=== PATIENT | female | born 1995 | race Caucasian/White ===

== ENCOUNTER 2017-11-18 09:28 | Inpatient (IN) | payer OTHER ==
[2017-11-18 10:34] VITALS: BMI 23.6
--- NOTE | 2017-11-18 12:12 | HP ---
COWS - Scale Resting Pulse: 0= [place] 80 or Below Sweatin= Chills/Flushing Restless Observation: 1= Difficult to Sit Still Pupil Size: 2= Moderately Dilated Bone or Joint Aches: 1= Mild Discomfort Runny Nose/ Eye Tearin= Nasal Congestion GI Upset > 30mins: 2= Nausea/Diarrhea Tremor Observation: 2= Slight Tremor Visible Yawning Observation: 0= None Anxiety or Irritability: 2=Irritable/Anxious Goose Flesh Skin: 0=Smooth Skin COWS Score: 12 Admission [facility] Chief Complaint: OXYCODONE/ETOH WITHDRAWAL SYMPTOMS. Allergies/Adverse Reactions: Allergies Allergy/AdvReac Type Severity Reaction Status Date / Time No Known Allergies Allergy Verified 11/18/17 10:17 History of Present Illness: PATIENT PRESENTS WITH ETOH/OXYCODONE WITHDRAWAL SYMPTOMS. PATIENT STARTED DRINKING,SMOKING MARIJUANA AND USING NON-PRESCRIBED PERCOCET 5 YEARS AGO. SMOKES MARIJUANA 1/20UNCE DAILY, DRINKS 1 PINT A DAY OF VODKA AND TAKES UP TO 20 10/325MG PERCOCET TABLETS DAILY. DENIES ANY HISTORY OF SEIZURES FROM ETOH USE /WITHDRAWAL. LAST DRINK LAST NIGHT AND PATIENT REPORTS TAKING PERCOCET, 5 TABS THIS MORNING. REPORTS HISTORY OF DEPRESSION AND ANXIETY. DENIES SI/HI AND SUICIDE ATTEMPTS. LAST DETOX WAS IN 04/2016 AT [facility]. - Ebola screening Have you traveled outside of the country in the last 21 days: No (N) Have you had contact with anyone from an Ebola affected area: No Have you been sick,other than usual withdrawal symptoms: No Do you have a fever: No - Review of Systems Constitutional: Night Sweats, Changes in sleep, Unexplained wgt Loss EENT: reports: Nose Congestion Respiratory: reports: No Symptoms reported Cardiac: reports: No Symptoms Reported GI: reports: Diarrhea, Nausea, Poor Fluid Intake, Abdominal cramping : reports: No Symptoms Reported Musculoskeletal: reports: Back Pain, Muscle Pain Integumentary: reports: Sweating Neuro: reports: Tremors Endocrine: reports: Unexplained Weight Loss Psychiatric: reports: Anxious, Depressed Patient History - Patient Medical History Hx Anemia: Yes (NOT CURRENTLY ON MED) Hx Asthma: No Hx Chronic Obstructive Pulmonary Disease (COPD): No Hx Cancer: No Hx Cardiac Disorders: No Hx Congestive Heart Failure: No Hx Hypertension: No Hx Hypercholesterolemia: No Hx Pacemaker: No HX Cerebrovascular Accident: No Hx Seizures: No Hx Dementia: No Hx Diabetes: No Hx Gastrointestinal Disorders: No Hx Liver Disease: No Hx Genitourinary Disorders: No Hx Sexually Transmitted Disorders: No Hx Renal Disease (ESRD): No Hx Thyroid Disease: No Hx Human Immunodeficiency Virus (HIV): No (NEGATIVE HX, LAST TEST ONE MONTH AGO AND NEGATIVE) Hx Hepatitis C: No Hx Depression: Yes Hx Suicide Attempt: No Hx Bipolar Disorder: No Hx Schizophrenia: No - Patient Surgical History Past Surgical History: Yes Hx Neurologic Surgery: No Hx Cataract Extraction: No Hx Cardiac Surgery: No Hx Lung Surgery: No Hx Breast Surgery: Yes (bilateral augmentation in 02/2016) Hx Breast Biopsy: No Hx Abdominal Surgery: No (liposuction in 02/2016) Hx Appendectomy: No Hx Cholecystectomy: No Hx Genitourinary Surgery: No Hx Section: No Hx Orthopedic Surgery: No Other Surgical History: LIPOSUCTION IN 02/16. Anesthesia Reaction: No - PPD History Previous Implant?: Yes Documented Results: Negative w/proof Implanted On Prior [facility] Admission?: Yes Date: 04/23/16 Results: 0 mm PPD to be Administered?: Yes - Reproductive History Last Menstrual Period: 11/04/17 Patient : No - Smoking Cessation Smoking history: Current every day smoker Have you smoked in the past 12 months: Yes Aproximately how many cigarettes per day: 20 If you are a former smoker, when did you quit?: 2013 Hx Chewing Tobacco Use: No Initiated information on smoking cessation: Yes 'Breaking Loose' booklet given: 11/18/17 - Substance & Tx. History Hx Alcohol Use: Yes Hx Substance Use: Yes Substance Use Type: Alcohol, Marijuana, Opiates - Substances Abused Percocet Route: Oral Frequency: Daily Amount used: 15 tabs. (10 mg.) Age of first use: 15 Date of Last Use: 11/18/17 Alcohol-cognac Route: Oral Frequency: 3-6 times per week Amount used: 1 pt. Age of first use: 16 Date of Last Use: 11/17/17 Marijuana Route: Smoking Frequency: Daily Amount used: $100 Age of first use: 12 Date of Last Use: 11/18/17 Family Disease History - Family Disease History Family Disease History: Other: Sister (opiate dependence) Admission Physical Exam [facility]HS - Vital Signs Vital Signs: Vital Signs - 24 hr 11/18/17 10:29 Temperature 98.2 F Pulse Rate 64 Respiratory 18 Rate Blood Pressure 101/63 - Physical General Appearance: Yes: No Apparent Distress, Nourished, Tremorous, Sweating, Anxious HEENTM: Yes: EOMI, Hearing grossly Normal, Normocephalic, Normal Voice, GILA, Pharynx Normal, Nasal Congestion Respiratory: Yes: Chest Non-Tender, Lungs Clear, Normal Breath Sounds, No Respiratory Distress, No Accessory Muscle Use Neck: Yes: No masses,lesions,Nodules, Supple, Trachea in good position Breast: Yes: Breast Exam Deferred Cardiology: Yes: Regular Rhythm, Regular Rate, S1, S2 Abdominal: Yes: Normal Bowel Sounds, Non Tender, Flat, Soft Genitourinary: Yes: Within Normal Limits Back: Yes: Normal Inspection, Muscle Spasm Musculoskeletal: Yes: full range of Motion, Gait Steady, Back pain Extremities: Yes: Normal Inspection, Normal Range of Motion, Non-Tender 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: 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 NML intact, Fully Oriented, Alert, Motor Strength 5/5, Depressed Affect Integumentary: Yes: Normal Color, Warm, Moist Lymphatic: Yes: Within Normal Limits - Diagnostic (1) Depressed affect Current Visit: Yes Status: Acute (2) Anxiety Current Visit: Yes Status: Acute (3) Alcohol dependence with uncomplicated withdrawal Current Visit: No Status: Acute (4) Cannabis dependence Current Visit: Yes Status: Chronic (5) Opioid dependence with withdrawal Current Visit: Yes Status: Acute Cleared for Admission [facility] - Detox or Rehab [facility] Level of Care: Medically Managed Detox Regimen/Protocol: Methadone/Librium [facility] Breath Alcohol Content Breath Alcohol Content: 0 Urine Pregancy Test - Result Urine Test Results: Negative- NO Line Present Urine Drug Screen - Results Drug Screen Negative: No Urine Drug Screen Results: THC-Marijuana, OXY-Oxycodone
[2017-11-18] MEDS ORDERED: IBUPROFEN 400 MG TABLET (FP) PO PRN (12:23)
[2017-11-18] MEDS ORDERED: NICOTINE POLACRILEX 2 MG GUM BUC PRN (12:23)
[2017-11-18] MEDS ORDERED: MAGNESIUM HYDROX 2400MG/30ML ORAL SUSPENSION 30 ML CUP PO PRN (12:23)
[2017-11-18] MEDS ORDERED: MENTHOL/PHENOL 1 EACH UD MM PRN (12:23)
[2017-11-18] MEDS ORDERED: guaiFENesin/D-METHORPHAN HB 10 ML UNIT-DOSE CUPS PO PRN (12:23)
[2017-11-18] MEDS ORDERED: P-EPHED 60MG/TRIPROLIDI 2.5MG TABLET PO PRN (12:23)
[2017-11-18] MEDS ORDERED: MAGNESIUM CITRATE 300 ML BOTTLE PO PRN (12:23)
[2017-11-18] MEDS ORDERED: LOPERAMIDE HCL 2 MG CAPSULE PO PRN (12:23)
[2017-11-18] MEDS ORDERED: MAG HYDROX/AL HYDROX/SIMETH 30 ML UNIT-DOSE CUP PO PRN (12:23)
[2017-11-18] MEDS ORDERED: ACETAMINOPHEN 325 MG TABLET (FP) PO PRN (12:23)
[2017-11-18] MEDS ORDERED: chlordiazePOXIDE HCL 25 MG CAPSULE PO PRN (12:27)
[2017-11-18] MEDS ORDERED: METHADONE HCL 10 MG TABLET (FOR DETOX USE ONLY) PO ONE ×3 (12:50→23:00)
[2017-11-18] MEDS ORDERED: chlordiazePOXIDE HCL 25 MG CAPSULE PO ONE (12:50)
[2017-11-18] MEDS ORDERED: METHADONE HCL 10 MG TABLET (FOR DETOX USE ONLY) ONE (15:30)
[2017-11-18] MEDS ORDERED: ONDANSETRON *ODT* 4 MG TABLET SL ONE (16:45)
[2017-11-18] MEDS ORDERED: ASPIRIN 81 MG CHEWABLE TABLETS PO ONE (16:45)
[2017-11-18] MEDS: chlordiazePOXIDE HCL 25 MG CAPSULE PO SCH ×2 (17:27→22:23)
[2017-11-18 20:16] LABS: URINE APPEARANCE SLCLOUDY; URINE BILIRUBIN NEGATIVE (<2.0 mg/dL); URINE COLOR LTYELLOW; URINE GLUCOSE (UA) NEGATIVE (NEGATIVE); URINE KETONE NEGATIVE (NEGATIVE); URINE LEUK ESTERASE NEGATIVE (NEGATIVE); URINE NITRITE NEGATIVE (NEGATIVE); URINE PROTEIN NEGATIVE (NEGATIVE); URINE UROBILINOGEN NEGATIVE mg/dL (0.2-1.0)
[2017-11-18] MEDS: THIAMINE HCL 100 MG TABLET (FP) PO SCH (22:23)
[2017-11-18] MEDS: MELATONIN 5 MG TABLETS PO PRN (22:24)
[2017-11-19] MEDS: chlordiazePOXIDE HCL 25 MG CAPSULE PO SCH ×4 (05:58→22:34)
[2017-11-19] MEDS ORDERED: METHADONE HCL 10 MG TABLET (FOR DETOX USE ONLY) PO SCH (10:00)
[2017-11-19] MEDS: PRENATAL VITAMINS W/ FOLIC ACID TABLET (FP) PO SCH (10:25)
[2017-11-19] MEDS: NICOTINE 21 MG/24 HOURS TOPICAL PATCH TD SCH (10:27)
[2017-11-19 10:43] LABS: HEMATOCRIT 39.5 % (32.4-45.2); HEMOGLOBIN 13.6 GM/dL (10.7-15.3); MCH 35.2 pg (25.7-33.7); MCHC 34.5 g/dl (32.0-36.0); MEAN CELL VOLUME 102.1 fl (80-96); MEAN PLT VOLUME 8.7 fl (7.5-11.1); PLATELET COUNT 236 K/MM3 (134-434); RBC 3.87 M/mm3 (3.60-5.2); RDW 13.3 % (11.6-15.6); WHITE BLOOD COUNT 6.1 K/mm3 (4.0-10.0)
[2017-11-19 10:47] LABS: ALBUMIN 3.9 g/dl (3.4-5.0); ALK PHOS 48 U/L (45-117); ANION GAP 2 (8-16); BILIRUBIN,TOTAL 0.2 mg/dL (0.2-1.0); BLOOD UREA NITROGEN 12 mg/dL (7-18); CALCIUM 8.6 mg/dL (8.5-10.1); CHLORIDE 106 mmol/L (98-107); CO2 32 mmol/L (21-32); CREATININE 0.8 mg/dL (0.55-1.02); GLUCOSE,RANDOM 87 mg/dL (74-106); POTASSIUM 4.2 mmol/L (3.5-5.1); SGOT/AST 10 U/L (15-37); SGPT/ALT 12 U/L (12-78); SODIUM 140 mmol/L (136-145); TOT PROT 6.6 g/dl (6.4-8.2)
--- NOTE | 2017-11-19 12:03 | PN ---
[facility] CIWA - CIWA Score Nausea/Vomitin Muscle Tremors: 3 Anxiety: 3 Agitation: 3 Paroxysmal Sweats: 2 Orientation: 0-Oriented Tacttile Disturbances: 0-None Auditory Disturbances: 0-None Visual Disturbances: 0-None Headache: 0-None Present CIWA-Ar Total Score: 14 [facility] COWS - Scale Resting Pulse: 0= SD 80 or Below Sweatin=Flushed/Facial Moisture Restless Observation: 1= Difficult to Sit Still Pupil Size: 0= Normal to Room Light Bone or Joint Aches: 0= None Runny Nose/ Eye Tearin= Nasal Congestion GI Upset > 30mins: 0= None Tremor Observation of Outstretched Hands: 1= Tremor [place], Not Seen Yawning Observation: 0= None Anxiety or Irritability: 2=Irritable/Anxious Goose Flesh Skin: 0=Smooth Skin COWS Score: 7 [facility] Progress Note (SOAP) Subjective: Restless Sleep disturbance sweats Objective: 11/19/17 12:02 A & O x 3 No acute distress Vital Signs Temperature 97.9 F 11/19/17 09:29 Pulse Rate 63 11/19/17 09:29 Respiratory Rate 16 11/19/17 09:29 Blood Pressure 96/50 11/19/17 09:29 O2 Sat by Pulse Oximetry (%) Laboratory Last Values WBC 6.1 K/mm3 (4.0-10.0) D 11/19/17 06:00 RBC 3.87 M/mm3 (3.60-5.2) 11/19/17 06:00 Hgb 13.6 GM/dL (10.7-15.3) D 11/19/17 06:00 Hct 39.5 % (32.4-45.2) 11/19/17 06:00 MCV 102.1 fl (80-96) H 11/19/17 06:00 MCH 35.2 pg (25.7-33.7) H D 11/19/17 06:00 MCHC 34.5 g/dl (32.0-36.0) 11/19/17 06:00 RDW 13.3 % (11.6-15.6) 11/19/17 06:00 Plt Count 236 K/MM3 (134-434) D 11/19/17 06:00 MPV 8.7 fl (7.5-11.1) D 11/19/17 06:00 Sodium 140 mmol/L (136-145) 11/19/17 06:00 Potassium 4.2 mmol/L (3.5-5.1) 11/19/17 06:00 Chloride 106 mmol/L (98-107) 11/19/17 06:00 Carbon Dioxide 32 mmol/L (21-32) 11/19/17 06:00 Anion Gap 2 (8-16) L 11/19/17 06:00 BUN 12 mg/dL (7-18) 11/19/17 06:00 Creatinine 0.8 mg/dL (0.55-1.02) 11/19/17 06:00 Creat Clearance w eGFR > 60 (>60) 11/19/17 06:00 Random Glucose 87 mg/dL (74-106) 11/19/17 06:00 Calcium 8.6 mg/dL (8.5-10.1) 11/19/17 06:00 Total Bilirubin 0.2 mg/dL (0.2-1.0) 11/19/17 06:00 AST 10 U/L (15-37) L 11/19/17 06:00 ALT 12 U/L (12-78) 11/19/17 06:00 Alkaline Phosphatase 48 U/L (45-117) 11/19/17 06:00 Total Protein 6.6 g/dl (6.4-8.2) 11/19/17 06:00 Albumin 3.9 g/dl (3.4-5.0) 11/19/17 06:00 Urine Color Ltyellow 11/18/17 18:00 Urine Appearance Slcloudy 11/18/17 18:00 Urine pH 6.0 (5.0-8.0) 11/18/17 18:00 Ur Specific [place] 1.010 (1.001-1.035) 11/18/17 18:00 Urine Protein Negative (NEGATIVE) 11/18/17 18:00 Urine Glucose (UA) Negative (NEGATIVE) 11/18/17 18:00 Urine Ketones Negative (NEGATIVE) 11/18/17 18:00 Urine Blood Negative (NEGATIVE) 11/18/17 18:00 Urine Nitrite Negative (NEGATIVE) 11/18/17 18:00 Urine Bilirubin Negative (<2.0 mg/dL) 11/18/17 18:00 Urine Urobilinogen Negative mg/dL (0.2-1.0) 11/18/17 18:00 Ur Leukocyte Esterase Negative (NEGATIVE) 11/18/17 18:00 RPR Titer Nonreactive (NONREACTIVE) 11/19/17 06:00 labs noted, HIGH UR SPECIFIC GRAVITY 11/19/17 12:08 Assessment: 11/19/17 12:05 withdrawal sx Dehydration Plan: continue detox increase hydration
--- NOTE | 2017-11-19 13:55 | CONSULT ---
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 Substance Abuse History: Confirmed by patient in this interview.Smoking history : Current every day smoker. Have you smoked in the past 12 months: Yes. Aproximately how many cigarettes per day: 20. If you are a former smoker, when did you quit?: 2013. Hx Chewing Tobacco Use: No. Initiated information on smoking cessation: Yes. 'Breaking Loose' booklet given: 11/18/17. - Substance & Tx. History. Hx Alcohol Use: Yes. Hx Substance Use: Yes. Substance Use Type : Alcohol, Marijuana, Opiates. - Substances Abused. Percocet. Route: Oral. Frequency: Daily. Amount used: 15 tabs. (10 mg.). Age of first use: 15. Date of Last Use: 11/18/17. Alcohol-cognac. Route: Oral. Frequency: 3 -6 times per week. Amount used: 1 pt. Age of first use: 16. Date of Last Use : 11/17/17. Marijuana. Route: Smoking. Frequency: Daily. Amount used: $ 100. Age of first use: 12. Date of Last Use: 11/18/17 Medical History: Remarkable for anemia and a history of breast augmentation + liposuction (2016). Psychiatric History: No reported history of psychiatric hospitalizations.Patient endorses the diagnoses of MDD and Anxiety Disorder.Sees a psychiatrist at a clinic located in the [place].Name of facility and prescribed medications : not recalled by the patient.Ms Gatica denies history of suicide attempts. Physical/Sexual Abuse/Trauma History: Patient denies. Additional Comment: Urine Drug Screen Results: THC-Marijuana, OXY- Oxycodone.Noted. Mental Status Exam - Mental Status Exam Alert and Oriented to: Time, Place, Person Cognitive Function: Good Patient Appearance: Well Groomed (small frame,petite) Mood: Nervous, Anxious Affect: Mood Congruent Patient Behavior: Appropriate, Cooperative Speech Pattern: Clear (fluent in honduran) Voice Loudness: Normal Thought Process: Intact, Goal Oriented Thought Disorder: Not Present Hallucinations: Denies Suicidal Ideation: Denies Homicidal Ideation: Denies Insight/Judgement: Poor Sleep: Poorly, Difficulty falling asleep Appetite: Good Muscle strength/Tone: Normal Gait/Station: Normal Psychiatric Findings - Problem List ([place] 1, 2,3) (1) Alcohol dependence with uncomplicated withdrawal Current Visit: Yes Status: Acute (2) Opioid dependence with withdrawal Current Visit: Yes Status: Acute (3) Cannabis dependence Current Visit: Yes Status: Acute (4) Nicotine dependence Current Visit: Yes Status: Acute (5) Drug-induced mood disorder Current Visit: Yes Status: Chronic (6) Insomnia Current Visit: Yes Status: Acute - Initial Treatment Plan Initial Treatment Plan: Psychoeducation.Records revisited,Sleep hygiene.Detoxification.Ambien 10 mg po hs prn.Patient is made aware of the potential for parasomnias.She agrees with this careplan.Observation.NO known medications on reconciliation list.Review of pharmacy claims : not informative ( no activity).
[2017-11-19] MEDS: hydrOXYzine PAMOATE 50 MG CAPSULE (FP) PO PRN ×2 (14:58→19:53)
[2017-11-19] MEDS: THIAMINE HCL 100 MG TABLET (FP) PO SCH (22:34)
[2017-11-19] MEDS: ZOLPIDEM TARTRATE 10 MG TABLET (PARK CARE ONLY) PO PRN (22:35)
[2017-11-19] MEDS: MELATONIN 5 MG TABLETS PO PRN (22:36)
[2017-11-20] MEDS: chlordiazePOXIDE HCL 25 MG CAPSULE PO SCH ×2 (06:11→11:16)
[2017-11-20] MEDS: METHADONE HCL 5 MG TABLET (FOR DETOX USE ONLY) PO SCH (11:15)
[2017-11-20] MEDS: NICOTINE 21 MG/24 HOURS TOPICAL PATCH TD SCH (11:16)
[2017-11-20] MEDS: PRENATAL VITAMINS W/ FOLIC ACID TABLET (FP) PO SCH (11:16)
--- NOTE | 2017-11-20 12:30 | PN ---
[facility] CIWA - CIWA Score Nausea/Vomitin-Mild Nausea/No Vomiting Muscle Tremors: 4-Moderate,w/Arms Extend Anxiety: 4-Mod. Anxious/Guarded Agitation: 4-Moderately Restless Paroxysmal Sweats: 3 Orientation: 0-Oriented Tacttile Disturbances: 0-None Auditory Disturbances: 0-None Visual Disturbances: 0-None Headache: 0-None Present CIWA-Ar Total Score: 16 [facility] COWS - Scale Resting Pulse: 0= [place] 80 or Below Sweatin=Flushed/Facial Moisture Restless Observation: 1= Difficult to Sit Still Pupil Size: 0= Normal to Room Light Bone or Joint Aches: 2= Severe Diffuse Aches Runny Nose/ Eye Tearin= Runny Nose/Eyes GI Upset > 30mins: 1= Stomach Cramp Tremor Observation of Outstretched Hands: 2= Slight Tremor Visible Yawning Observation: 2= >3x During Session Anxiety or Irritability: 2=Irritable/Anxious Goose Flesh Skin: 3=Piloerection COWS Score: 17 [facility] Progress Note (SOAP) Subjective: body aches sweats shakes interrupted sleep agitation irritable Objective: 11/20/17 12:29 Vital Signs Temperature 97.9 F 11/20/17 10:27 Pulse Rate 83 11/20/17 11:13 Respiratory Rate 18 11/20/17 11:13 Blood Pressure 91/62 11/20/17 11:13 O2 Sat by Pulse Oximetry (%) Laboratory Tests 11/18/17 11/19/17 11/19/17 18:00 06:00 06:00 WBC 6.1 D RBC 3.87 Hgb 13.6 D Hct 39.5 MCV 102.1 H MCH 35.2 H D MCHC 34.5 RDW 13.3 Plt Count 236 D MPV 8.7 D Sodium 140 Potassium 4.2 Chloride 106 Carbon Dioxide 32 Anion Gap 2 L BUN 12 Creatinine 0.8 Creat Clearance w eGFR > 60 Random Glucose 87 Calcium 8.6 Total Bilirubin 0.2 AST 10 L ALT 12 Alkaline Phosphatase 48 Total Protein 6.6 Albumin 3.9 Urine Color Ltyellow Urine Appearance Slcloudy Urine pH 6.0 Ur Specific [place] 1.010 Urine Protein Negative Urine Glucose (UA) Negative Urine Ketones Negative Urine Blood Negative Urine Nitrite Negative Urine Bilirubin Negative Urine Urobilinogen Negative Ur Leukocyte Esterase Negative RPR Titer 11/19/17 06:00 WBC RBC Hgb Hct MCV MCH MCHC RDW Plt Count MPV Sodium Potassium Chloride Carbon Dioxide Anion Gap BUN Creatinine Creat Clearance w eGFR Random Glucose Calcium Total Bilirubin AST ALT Alkaline Phosphatase Total Protein Albumin Urine Color Urine Appearance Urine pH Ur Specific [place] Urine Protein Urine Glucose (UA) Urine Ketones Urine Blood Urine Nitrite Urine Bilirubin Urine Urobilinogen Ur Leukocyte Esterase RPR Titer Nonreactive aaox3 ambulating no acute distress Assessment: 11/20/17 12:29 withdrawal sx Plan: continue detox increase fluids ensure bid water pitcher
[2017-11-20] MEDS: hydrOXYzine PAMOATE 50 MG CAPSULE (FP) PO PRN ×2 (13:22→17:25)
[2017-11-20] MEDS: CYCLOBENZAPRINE HCL 10 MG TABLET (FP) PO PRN ×2 (13:22→22:41)
[2017-11-20] MEDS: chlordiazePOXIDE 5 MG CAPSULE PO SCH ×2 (17:24→22:39)
[2017-11-20] MEDS: ZOLPIDEM TARTRATE 10 MG TABLET (PARK CARE ONLY) PO PRN (22:40)
[2017-11-20] MEDS: THIAMINE HCL 100 MG TABLET (FP) PO SCH (22:40)
[2017-11-21] MEDS: hydrOXYzine PAMOATE 50 MG CAPSULE (FP) PO PRN ×2 (01:12→12:26)
[2017-11-21] MEDS: chlordiazePOXIDE 5 MG CAPSULE PO SCH ×2 (05:22→10:25)
[2017-11-21] MEDS: CYCLOBENZAPRINE HCL 10 MG TABLET (FP) PO PRN ×3 (05:27→22:42)
[2017-11-21] MEDS: PRENATAL VITAMINS W/ FOLIC ACID TABLET (FP) PO SCH (10:24)
[2017-11-21] MEDS: METHADONE HCL 5 MG TABLET (FOR DETOX USE ONLY) PO SCH (10:24)
[2017-11-21] MEDS: NICOTINE 21 MG/24 HOURS TOPICAL PATCH TD SCH (10:25)
--- NOTE | 2017-11-21 10:39 | PN ---
S Progress Note (SOAP) Subjective: ALERT,IRRITABLE,ANXIOUS,INTERRUPTED SLEEP,TREMOR,PAIN IN THE BODY Objective: 11/21/17 10:37 Vital Signs Temperature 97.3 F L 11/21/17 06:20 Pulse Rate 73 11/21/17 06:20 Respiratory Rate 18 11/21/17 06:20 Blood Pressure 92/67 11/21/17 06:20 O2 Sat by Pulse Oximetry (%) Laboratory Last Values WBC 6.1 K/mm3 (4.0-10.0) D 11/19/17 06:00 RBC 3.87 M/mm3 (3.60-5.2) 11/19/17 06:00 Hgb 13.6 GM/dL (10.7-15.3) D 11/19/17 06:00 Hct 39.5 % (32.4-45.2) 11/19/17 06:00 MCV 102.1 fl (80-96) H 11/19/17 06:00 MCH 35.2 pg (25.7-33.7) H D 11/19/17 06:00 MCHC 34.5 g/dl (32.0-36.0) 11/19/17 06:00 RDW 13.3 % (11.6-15.6) 11/19/17 06:00 Plt Count 236 K/MM3 (134-434) D 11/19/17 06:00 MPV 8.7 fl (7.5-11.1) D 11/19/17 06:00 Sodium 140 mmol/L (136-145) 11/19/17 06:00 Potassium 4.2 mmol/L (3.5-5.1) 11/19/17 06:00 Chloride 106 mmol/L (98-107) 11/19/17 06:00 Carbon Dioxide 32 mmol/L (21-32) 11/19/17 06:00 Anion Gap 2 (8-16) L 11/19/17 06:00 BUN 12 mg/dL (7-18) 11/19/17 06:00 Creatinine 0.8 mg/dL (0.55-1.02) 11/19/17 06:00 Creat Clearance w eGFR > 60 (>60) 11/19/17 06:00 Random Glucose 87 mg/dL (74-106) 11/19/17 06:00 Calcium 8.6 mg/dL (8.5-10.1) 11/19/17 06:00 Total Bilirubin 0.2 mg/dL (0.2-1.0) 11/19/17 06:00 AST 10 U/L (15-37) L 11/19/17 06:00 ALT 12 U/L (12-78) 11/19/17 06:00 Alkaline Phosphatase 48 U/L (45-117) 11/19/17 06:00 Total Protein 6.6 g/dl (6.4-8.2) 11/19/17 06:00 Albumin 3.9 g/dl (3.4-5.0) 11/19/17 06:00 Urine Color Ltyellow 11/18/17 18:00 Urine Appearance Slcloudy 11/18/17 18:00 Urine pH 6.0 (5.0-8.0) 11/18/17 18:00 Ur Specific [place] 1.010 (1.001-1.035) 11/18/17 18:00 Urine Protein Negative (NEGATIVE) 11/18/17 18:00 Urine Glucose (UA) Negative (NEGATIVE) 11/18/17 18:00 Urine Ketones Negative (NEGATIVE) 11/18/17 18:00 Urine Blood Negative (NEGATIVE) 11/18/17 18:00 Urine Nitrite Negative (NEGATIVE) 11/18/17 18:00 Urine Bilirubin Negative (<2.0 mg/dL) 11/18/17 18:00 Urine Urobilinogen Negative mg/dL (0.2-1.0) 11/18/17 18:00 Ur Leukocyte Esterase Negative (NEGATIVE) 11/18/17 18:00 RPR Titer Nonreactive (NONREACTIVE) 11/19/17 06:00 Assessment: 11/21/17 10:38 WITHDRAWAL SYMPTOM Plan: CONTINUE DETOX,PSYCHIATRIC REEVALUATION FOR MED FOR INSOMNIA
--- NOTE | 2017-11-21 14:38 | PN ---
Psychiatric Progress Note Vital Signs: Vital Signs Period Temp Pulse Resp BP Sys/Perez Pulse Ox Last 24 Hr 96.9 F-98.4 F 73-101 16-20 92-103/56-69 Date of Session: 11/21/17 Chief Complaint:: Insomnia, muscle spasms HPI: Patient reports muscle stiffness, reports insomnia, asking for medications aid. Patient currently on Ambien 10mg po qhs for insomnia Current Medications: Active Medications Generic Name Dose Route Start Last Admin Trade Name Freq PRN Reason Stop Dose Admin Acetaminophen 650 mg 11/18/17 12:23 11/19/17 10:28 Tylenol - PO 650 mg Q4H PRN Administration FEVER Al Hydroxide/Mg Hydroxide 30 ml 11/18/17 12:23 Mylanta Oral Suspension - PO Q6H PRN DYSPEPSIA Chlordiazepoxide HCl 10 mg 11/21/17 17:00 Librium - PO 11/22/17 11:01 [id number] SABRINA Cyclobenzaprine HCl 10 mg 11/20/17 10:38 11/21/17 13:40 Flexeril - PO 10 mg TID PRN Administration MUSCLE SPASMS Eucalyptus/Menthol/Phenol/Sorbitol 1 each 11/18/17 12:23 Cepastat Lozenge - MM Q4H PRN SORE THROAT Guaifenesin 10 ml 11/18/17 12:23 Robitussin Dm - PO Q6H PRN COUGH Hydroxyzine Pamoate 50 mg 11/18/17 12:23 11/21/17 12:26 Vistaril - PO 50 mg Q4H PRN Administration AGITATION Loperamide HCl 4 mg 11/18/17 12:23 Imodium - PO Q6H PRN DIARRHEA Magnesium Citrate 300 ml 11/18/17 12:23 Citroma - PO Q48H PRN CONSTIPATION Magnesium Hydroxide 30 ml 11/18/17 12:23 Milk Of Magnesia - PO DAILY PRN CONSTIPATION Melatonin 5 mg 11/18/17 22:00 11/19/17 22:36 Melatonin PO 5 mg HS PRN Administration INSOMNIA Methadone HCl 5 mg 11/23/17 06:00 Dolophine - PO 11/23/17 06:01 DAILY@0600 SABRINA Methadone HCl 10 mg 11/22/17 10:00 Dolophine - PO 11/22/17 10:01 DAILY SABRINA Nicotine 21 mg 11/19/17 10:00 11/21/17 10:25 Nicoderm Patch - TD 21 mg DAILY SABRINA Administration Nicotine Polacrilex 2 mg 11/18/17 12:23 Nicorette Gum - BUC Q2H PRN NICOTINE REPLACEMENT RX Multivit/Folic Acid/Iron 1 tab 11/19/17 10:00 11/21/17 10:24 Vitamins (Sjr) - PO 1 tab DAILY SABRINA Administration Pseudoephedrine/Triprolidine 1 combo 11/18/17 12:23 Actifed - PO TID PRN NASAL CONGESTION Thiamine HCl 100 mg 11/18/17 22:00 11/20/17 22:40 Vitamin B1 - PO 100 mg HS SABRINA Administration Zolpidem Tartrate 10 mg 11/19/17 22:00 11/20/17 22:40 Ambien - PO 10 mg HS PRN Administration INSOMNIA Provider note:: Gabapentin 300mg po tid added to treatment plan Mental Status Exam - Mental Status Exam Alert and Oriented to: Place, Person Cognitive Function: Fair Patient Appearance: Well Groomed Mood: Apprehensive Affect: Mood Congruent Patient Behavior: Cooperative Speech Pattern: Appropriate Voice Loudness: Normal Thought Process: Goal Oriented Thought Disorder: Being Controlled Hallucinations: Denies Suicidal Ideation: Denies Homicidal Ideation: Denies Insight/Judgement: Fair Sleep: Difficulty falling asleep Appetite: Fair Muscle strength/Tone: Mild Hypertonicity Gait/Station: Normal Additional Comments: Gabapentin 300mg po tid Psychiatric Treatment Plan - Problem List (1) Alcohol dependence with uncomplicated withdrawal Current Visit: Yes (2) Anxiety and depression Current Visit: Yes (3) Cannabis dependence Current Visit: Yes (4) Nicotine dependence Current Visit: Yes (5) Opioid dependence with withdrawal Current Visit: Yes (6) Drug-induced mood disorder Current Visit: Yes (7) Substance-induced sleep disorder Current Visit: No Initial treatment plan: Gabapentin 300mg po tid
[2017-11-21] MEDS: GABAPENTIN 300 MG CAPSULE (FP) PO SCH ×2 (16:03→22:40)
[2017-11-21] MEDS: chlordiazePOXIDE HCL 10 MG CAPSULE PO SCH ×2 (18:03→22:40)
[2017-11-21] MEDS: THIAMINE HCL 100 MG TABLET (FP) PO SCH (22:40)
[2017-11-21] MEDS: ZOLPIDEM TARTRATE 10 MG TABLET (PARK CARE ONLY) PO PRN (22:42)
--- NOTE | 2017-11-22 00:09 | EKG ---
Test Reason : Blood Pressure : / mmHG Vent. Rate : 065 BPM Atrial Rate : 065 BPM P-R Int : 142 ms QRS Dur : 090 ms QT Int : 420 ms P-R-T Axes : 052 005 009 degrees QTc Int : 436 ms NORMAL SINUS RHYTHM WITH SINUS ARRHYTHMIA NONSPECIFIC T WAVE ABNORMALITY ABNORMAL ECG WHEN COMPARED WITH ECG OF 18-NOV-2017 15:07, T WAVE VARIATION Confirmed by PRANAY DAVIDSON MD ([id number]) on 11/22/2017 12:09:19 AM Referred By: Confirmed By:PRANAY DAVIDSON MD
--- NOTE | 2017-11-22 00:53 | EKG ---
Test Reason : Blood Pressure : / mmHG Vent. Rate : 056 BPM Atrial Rate : 056 BPM P-R Int : 140 ms QRS Dur : 090 ms QT Int : 438 ms P-R-T Axes : 042 009 007 degrees QTc Int : 422 ms SINUS BRADYCARDIA WITH SINUS ARRHYTHMIA OTHERWISE NORMAL ECG NO PREVIOUS ECGS AVAILABLE Confirmed by PRANAY DAVIDSON MD ([id number]) on 11/22/2017 12:53:37 AM Referred By: Confirmed By:PRANAY DAVIDSON MD
[2017-11-22] MEDS: GABAPENTIN 300 MG CAPSULE (FP) PO SCH ×3 (05:29→22:21)
[2017-11-22] MEDS: chlordiazePOXIDE HCL 10 MG CAPSULE PO SCH ×2 (05:30→11:05)
[2017-11-22] MEDS ORDERED: METHADONE HCL 10 MG TABLET (FOR DETOX USE ONLY) PO SCH (10:00)
--- NOTE | 2017-11-22 10:09 | PN ---
S Progress Note (SOAP) Subjective: ALERT,IRRITABLE,ANXIOUS,INTERRUPTED SLEEP, Objective: 11/22/17 10:07 Vital Signs Temperature 95.4 F L 11/22/17 09:10 Pulse Rate 108 H 11/22/17 09:10 Respiratory Rate 18 11/22/17 09:10 Blood Pressure 96/42 11/22/17 09:10 O2 Sat by Pulse Oximetry (%) Assessment: 11/22/17 10:08 WITHDRAWAL SYMPTOM Plan: CONTINUE DETOX
[2017-11-22] MEDS: PRENATAL VITAMINS W/ FOLIC ACID TABLET (FP) PO SCH (11:05)
[2017-11-22] MEDS: NICOTINE 21 MG/24 HOURS TOPICAL PATCH TD SCH (11:06)
[2017-11-22] MEDS: hydrOXYzine PAMOATE 50 MG CAPSULE (FP) PO PRN ×3 (13:32→23:43)
[2017-11-22] MEDS: CYCLOBENZAPRINE HCL 10 MG TABLET (FP) PO PRN ×2 (13:34→22:24)
[2017-11-22] MEDS: THIAMINE HCL 100 MG TABLET (FP) PO SCH (22:21)
[2017-11-22] MEDS: MELATONIN 5 MG TABLETS PO PRN (22:23)
[2017-11-23] MEDS ORDERED: METHADONE HCL 5 MG TABLET (FOR DETOX USE ONLY) PO SCH (06:00)
[2017-11-23 06:47] VITALS: TEMP 97.7
[2017-11-23] MEDS: GABAPENTIN 300 MG CAPSULE (FP) PO SCH (06:47)
[2017-11-23] MEDS: hydrOXYzine PAMOATE 50 MG CAPSULE (FP) PO PRN (08:53)
--- NOTE | 2017-11-23 09:01 | PN ---
S Progress Note (SOAP) Subjective: ALERT,NO COMPLAINT Objective: 11/23/17 08:58 Vital Signs Temperature 97.7 F 11/23/17 06:47 Pulse Rate 65 11/23/17 06:47 Respiratory Rate 16 11/23/17 06:47 Blood Pressure 85/48 11/23/17 06:47 O2 Sat by Pulse Oximetry (%) Assessment: 11/23/17 08:58 DETOX COMPLETED,NO WITHDRAWAL SYMPTOM Plan: DISCHARGE TODAY,FOLLOW UP WITH AFTER CARE PROGRAM ARRANGEMENT
--- NOTE | 2017-11-23 09:08 | DS ---
[facility] Detox Discharge Summary Admission Date: 11/18/17 Discharge Date: 11/23/17 - History Present History: Alcohol Dependence, Cocaine Dependence, Opioid Dependence Additional Comments: FOLLOW UP WITH REVELATION ARRANGEMENT Pertinent Past History: ASTHMA INSOMNIA ANXIETY AND DEPRESSION - Physical Exam Results Vital Signs: Vital Signs Temperature 97.7 F 11/23/17 06:47 Pulse Rate 65 11/23/17 06:47 Respiratory Rate 16 11/23/17 06:47 Blood Pressure 85/48 11/23/17 06:47 O2 Sat by Pulse Oximetry (%) Pertinent Admission Physical Exam Findings: WITHDRAWAL SIGNS AND SYMPTOM Vital Signs Temperature 97.7 F 11/23/17 06:47 Pulse Rate 65 11/23/17 06:47 Respiratory Rate 16 11/23/17 06:47 Blood Pressure 85/48 11/23/17 06:47 O2 Sat by Pulse Oximetry (%) Laboratory Last Values WBC 6.1 K/mm3 (4.0-10.0) D 11/19/17 06:00 RBC 3.87 M/mm3 (3.60-5.2) 11/19/17 06:00 Hgb 13.6 GM/dL (10.7-15.3) D 11/19/17 06:00 Hct 39.5 % (32.4-45.2) 11/19/17 06:00 MCV 102.1 fl (80-96) H 11/19/17 06:00 MCH 35.2 pg (25.7-33.7) H D 11/19/17 06:00 MCHC 34.5 g/dl (32.0-36.0) 11/19/17 06:00 RDW 13.3 % (11.6-15.6) 11/19/17 06:00 Plt Count 236 K/MM3 (134-434) D 11/19/17 06:00 MPV 8.7 fl (7.5-11.1) D 11/19/17 06:00 Sodium 140 mmol/L (136-145) 11/19/17 06:00 Potassium 4.2 mmol/L (3.5-5.1) 11/19/17 06:00 Chloride 106 mmol/L (98-107) 11/19/17 06:00 Carbon Dioxide 32 mmol/L (21-32) 11/19/17 06:00 Anion Gap 2 (8-16) L 11/19/17 06:00 BUN 12 mg/dL (7-18) 11/19/17 06:00 Creatinine 0.8 mg/dL (0.55-1.02) 11/19/17 06:00 Creat Clearance w eGFR > 60 (>60) 11/19/17 06:00 Random Glucose 87 mg/dL (74-106) 11/19/17 06:00 Calcium 8.6 mg/dL (8.5-10.1) 11/19/17 06:00 Total Bilirubin 0.2 mg/dL (0.2-1.0) 11/19/17 06:00 AST 10 U/L (15-37) L 11/19/17 06:00 ALT 12 U/L (12-78) 11/19/17 06:00 Alkaline Phosphatase 48 U/L (45-117) 11/19/17 06:00 Total Protein 6.6 g/dl (6.4-8.2) 11/19/17 06:00 Albumin 3.9 g/dl (3.4-5.0) 11/19/17 06:00 Urine Color Ltyellow 11/18/17 18:00 Urine Appearance Slcloudy 11/18/17 18:00 Urine pH 6.0 (5.0-8.0) 11/18/17 18:00 Ur Specific [place] 1.010 (1.001-1.035) 11/18/17 18:00 Urine Protein Negative (NEGATIVE) 11/18/17 18:00 Urine Glucose (UA) Negative (NEGATIVE) 11/18/17 18:00 Urine Ketones Negative (NEGATIVE) 11/18/17 18:00 Urine Blood Negative (NEGATIVE) 11/18/17 18:00 Urine Nitrite Negative (NEGATIVE) 11/18/17 18:00 Urine Bilirubin Negative (<2.0 mg/dL) 11/18/17 18:00 Urine Urobilinogen Negative mg/dL (0.2-1.0) 11/18/17 18:00 Ur Leukocyte Esterase Negative (NEGATIVE) 11/18/17 18:00 RPR Titer Nonreactive (NONREACTIVE) 11/19/17 06:00 - Treatment Hospital Course: Detox Protocol Followed, Detoxed Safely, Responded well, Discharged Condition Good, Rehab Referral Accepted Patient has Accepted a Rehab Referral to: [facility] - Medication Discharge Medications: Ambulatory Orders Gabapentin [Neurontin -] 300 mg PO TID #90 capsule 11/21/17 - Diagnosis (1) Opioid dependence with withdrawal Current Visit: Yes Status: Acute (2) Anxiety and depression Current Visit: Yes Status: Acute (3) Alcohol dependence with uncomplicated withdrawal Current Visit: Yes Status: Acute (4) Cannabis dependence Current Visit: Yes Status: Acute (5) Insomnia Current Visit: Yes Status: Acute - AMA Did Patient Leave Against Medical Advice: No
[2017-11-23 09:10] VITALS: BP 90/52; PULSE 66
[2017-11-23] MEDS: NICOTINE 21 MG/24 HOURS TOPICAL PATCH TD SCH (10:20)
[2017-11-23] MEDS: CYCLOBENZAPRINE HCL 10 MG TABLET (FP) PO PRN (10:21)
[2017-11-23] MEDS: PRENATAL VITAMINS W/ FOLIC ACID TABLET (FP) PO SCH (10:22)
== END 2017-11-23 12:18 | disposition other institution (70) | DRG 773 ==
LOC: YASAS 09:28 → Y6N 12:43
PROVIDERS: ADMIT Surgery; ATTEND Surgery
PROC: HZ2ZZZZ Detoxification Services for Substance Abuse Treatment (ICD-10-PCS; principal; 2017-11-18)
DX: F11.23 Opioid dependence with withdrawal (principal); F10.230 Alcohol dependence with withdrawal, uncomplicated; F12.20 Cannabis dependence, uncomplicated; F41.8 Other specified anxiety disorders; F19.24 Other psychoactive substance dependence with psychoactive substance-induced mood disorder; F19.282 Other psychoactive substance dependence with psychoactive substance-induced sleep disorder; G47.00 Insomnia, unspecified; E86.0 Dehydration
CPT/HCPCS: 36415; 80053; 81003; 85027; 86593; 93005; 93010; Q0162

== ENCOUNTER 2017-11-23 12:30 | Inpatient (IN) | payer OTHER ==
[2017-11-23 13:14] VITALS: BMI 22.8
[2017-11-23] MEDS ORDERED: MENTHOL/PHENOL 1 EACH UD MM PRN (13:14)
[2017-11-23] MEDS ORDERED: IBUPROFEN 400 MG TABLET (FP) PO PRN (13:14)
[2017-11-23] MEDS ORDERED: MAGNESIUM CITRATE 300 ML BOTTLE PO PRN (13:14)
[2017-11-23] MEDS ORDERED: MAG HYDROX/AL HYDROX/SIMETH 30 ML UNIT-DOSE CUP PO PRN (13:14)
[2017-11-23] MEDS ORDERED: P-EPHED 60MG/TRIPROLIDI 2.5MG TABLET PO PRN (13:14)
[2017-11-23] MEDS ORDERED: guaiFENesin/D-METHORPHAN HB 10 ML UNIT-DOSE CUPS PO PRN (13:14)
[2017-11-23] MEDS ORDERED: ACETAMINOPHEN 325 MG TABLET (FP) PO PRN (13:14)
[2017-11-23] MEDS ORDERED: MAGNESIUM HYDROX 2400MG/30ML ORAL SUSPENSION 30 ML CUP PO PRN (13:14)
[2017-11-23] MEDS ORDERED: NICOTINE POLACRILEX 2 MG GUM BUC PRN (13:16)
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
[2017-11-23] MEDS: hydrOXYzine PAMOATE 50 MG CAPSULE (FP) PO PRN ×2 (15:12→22:04)
[2017-11-23] MEDS: GABAPENTIN 300 MG CAPSULE (FP) PO SCH ×2 (17:00→22:03)
[2017-11-23] MEDS: THIAMINE HCL 100 MG TABLET (FP) PO SCH (22:03)
[2017-11-23] MEDS: MELATONIN 5 MG TABLETS PO PRN (22:04)
[2017-11-24] MEDS: hydrOXYzine PAMOATE 50 MG CAPSULE (FP) PO PRN ×3 (06:29→21:44)
[2017-11-24] MEDS: GABAPENTIN 300 MG CAPSULE (FP) PO SCH ×3 (06:29→21:44)
[2017-11-24] MEDS: NICOTINE 21 MG/24 HOURS TOPICAL PATCH TD SCH (10:37)
[2017-11-24] MEDS: PRENATAL VITAMINS W/ FOLIC ACID TABLET (FP) PO SCH (10:38)
[2017-11-24] MEDS ORDERED: LACTULOSE 20 GM/30 ML UDC (FOR ORAL USE ONLY) PO ONE (19:45)
--- NOTE | 2017-11-24 19:48 | PN ---
[facility] Progress Note Note: c/o constipation at took MOM and with no success. one stat dose of lactulose 20 mg
[2017-11-24] MEDS ORDERED: SODIUM PHOSPHATE/NA BIPHOS 133 ML ENEMA PR ONE (21:19)
[2017-11-24] MEDS: THIAMINE HCL 100 MG TABLET (FP) PO SCH (21:44)
[2017-11-24] MEDS: MELATONIN 5 MG TABLETS PO PRN (21:44)
[2017-11-25] MEDS: GABAPENTIN 300 MG CAPSULE (FP) PO SCH ×3 (06:34→22:23)
[2017-11-25] MEDS: PRENATAL VITAMINS W/ FOLIC ACID TABLET (FP) PO SCH (10:29)
[2017-11-25] MEDS: NICOTINE 21 MG/24 HOURS TOPICAL PATCH TD SCH (10:30)
[2017-11-25] MEDS: hydrOXYzine PAMOATE 50 MG CAPSULE (FP) PO PRN ×2 (10:34→18:18)
[2017-11-25] MEDS: DOCUSATE SODIUM 100 MG CAPSULE (FP) PO SCH (22:23)
[2017-11-25] MEDS: THIAMINE HCL 100 MG TABLET (FP) PO SCH (22:23)
[2017-11-25] MEDS: MELATONIN 5 MG TABLETS PO PRN (22:27)
[2017-11-26] MEDS: hydrOXYzine PAMOATE 50 MG CAPSULE (FP) PO PRN ×4 (00:02→22:18)
[2017-11-26] MEDS: GABAPENTIN 300 MG CAPSULE (FP) PO SCH ×3 (06:56→22:18)
[2017-11-26] MEDS: DOCUSATE SODIUM 100 MG CAPSULE (FP) PO SCH ×2 (10:31→22:18)
[2017-11-26] MEDS: PRENATAL VITAMINS W/ FOLIC ACID TABLET (FP) PO SCH (10:31)
[2017-11-26] MEDS: NICOTINE 21 MG/24 HOURS TOPICAL PATCH TD SCH (10:32)
[2017-11-26] MEDS: THIAMINE HCL 100 MG TABLET (FP) PO SCH (22:18)
[2017-11-26] MEDS: MELATONIN 5 MG TABLETS PO PRN (22:19)
[2017-11-27] MEDS: hydrOXYzine PAMOATE 50 MG CAPSULE (FP) PO PRN ×4 (01:20→22:07)
[2017-11-27] MEDS: GABAPENTIN 300 MG CAPSULE (FP) PO SCH ×3 (08:21→22:05)
[2017-11-27] MEDS: NICOTINE 21 MG/24 HOURS TOPICAL PATCH TD SCH (10:19)
[2017-11-27] MEDS: PRENATAL VITAMINS W/ FOLIC ACID TABLET (FP) PO SCH (10:19)
[2017-11-27] MEDS: DOCUSATE SODIUM 100 MG CAPSULE (FP) PO SCH ×2 (10:19→22:05)
[2017-11-27] MEDS ORDERED: BACITRACIN 15 GM TUBE TOPICAL OINTMENT TP SCH (13:15)
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
[2017-11-27] MEDS: BACITRACIN 0.9 GM PACKET TP SCH (14:07)
--- NOTE | 2017-11-27 14:07 | PN ---
[facility] Progress Note Note: was called by a nurse pt c/o insomnia, melatonin not effective, will add belsomra
[2017-11-27] MEDS: THIAMINE HCL 100 MG TABLET (FP) PO SCH (22:05)
[2017-11-27] MEDS: SUVOREXANT 10 MG TABLET PO SCH (22:06)
[2017-11-28] MEDS: GABAPENTIN 300 MG CAPSULE (FP) PO SCH ×3 (06:47→22:10)
[2017-11-28] MEDS: hydrOXYzine PAMOATE 50 MG CAPSULE (FP) PO PRN ×2 (06:48→22:11)
[2017-11-28] MEDS: BACITRACIN 0.9 GM PACKET TP SCH (10:24)
[2017-11-28] MEDS: DOCUSATE SODIUM 100 MG CAPSULE (FP) PO SCH (10:25)
[2017-11-28] MEDS: PRENATAL VITAMINS W/ FOLIC ACID TABLET (FP) PO SCH (10:25)
[2017-11-28] MEDS: NICOTINE 21 MG/24 HOURS TOPICAL PATCH TD SCH (10:25)
[2017-11-28] MEDS: LOPERAMIDE HCL 2 MG CAPSULE PO PRN ×2 (13:12→22:10)
[2017-11-28] MEDS ORDERED: DOCUSATE SODIUM 100 MG CAPSULE (FP) PO PRN (13:41)
--- NOTE | 2017-11-28 13:43 | PN ---
S Progress Note Note: Vital Signs Temperature 98.2 F 11/28/17 10:15 Pulse Rate 81 11/28/17 10:15 Respiratory Rate 16 11/28/17 10:15 Blood Pressure 104/71 11/28/17 10:15 O2 Sat by Pulse Oximetry (%) c/o of hx constipation and hemorrhoids. colace 100 BID PRN anusol qhs PRN increase fluids ambulate continue to monitor
[2017-11-28] MEDS ORDERED: PT OWN MED DRAWER 7, Y5N ONE (22:09)
[2017-11-28] MEDS: THIAMINE HCL 100 MG TABLET (FP) PO SCH (22:10)
[2017-11-28] MEDS: HYDROCORTISONE ACETATE 25 MG/SUPP.RECT RC SCH (22:10)
[2017-11-28] MEDS: SUVOREXANT 10 MG TABLET PO SCH (22:11)
[2017-11-29] MEDS: GABAPENTIN 300 MG CAPSULE (FP) PO SCH ×3 (06:21→22:05)
[2017-11-29] MEDS: hydrOXYzine PAMOATE 50 MG CAPSULE (FP) PO PRN ×3 (06:21→22:05)
[2017-11-29] MEDS: BACITRACIN 0.9 GM PACKET TP SCH (10:40)
[2017-11-29] MEDS: NICOTINE 21 MG/24 HOURS TOPICAL PATCH TD SCH (10:40)
[2017-11-29] MEDS: PRENATAL VITAMINS W/ FOLIC ACID TABLET (FP) PO SCH (10:40)
[2017-11-29] MEDS: HYDROCORTISONE ACETATE 25 MG/SUPP.RECT RC SCH (22:05)
[2017-11-29] MEDS: THIAMINE HCL 100 MG TABLET (FP) PO SCH (22:05)
[2017-11-29] MEDS: SUVOREXANT 10 MG TABLET PO SCH (22:06)
[2017-11-30] MEDS: GABAPENTIN 300 MG CAPSULE (FP) PO SCH ×3 (06:31→21:54)
[2017-11-30] MEDS: hydrOXYzine PAMOATE 50 MG CAPSULE (FP) PO PRN ×3 (06:31→21:55)
[2017-11-30] MEDS: NICOTINE 21 MG/24 HOURS TOPICAL PATCH TD SCH (10:31)
[2017-11-30] MEDS: BACITRACIN 0.9 GM PACKET TP SCH (10:31)
[2017-11-30] MEDS: PRENATAL VITAMINS W/ FOLIC ACID TABLET (FP) PO SCH (10:32)
--- NOTE | 2017-11-30 13:58 | PN ---
S Progress Note Note: Patient c/o left groin abscess. PE: alert and oriented x 3. In no acute distress. Afebrile. Small left groin reddened abscess noted. No discharge present. Will treat with Keflex 250mg every 6 hrs x 7 days. Continue to monitor clinically. Vital Signs Temperature 98.7 F 11/30/17 07:26 Pulse Rate 78 11/30/17 07:26 Respiratory Rate 18 11/30/17 07:26 Blood Pressure 93/65 11/30/17 07:26 O2 Sat by Pulse Oximetry (%)
--- NOTE | 2017-11-30 15:57 | PN ---
Psychiatric Progress Note Vital Signs: Vital Signs Period Temp Pulse Resp BP Sys/Perez Pulse Ox Last 24 Hr 98.7 F 78 16-18 93/65 Date of Session: 11/30/17 Chief Complaint:: Kvng not sleeping again,Belsomra is not helping me. HPI: Cannabis,Opioid and alcohol dependenece comorbid with Substance induced mood disorder. Current Medications: Active Medications Generic Name Dose Route Start Last Admin Trade Name Freq PRN Reason Stop Dose Admin Acetaminophen 650 mg 11/23/17 13:14 Tylenol - PO Q4H PRN FEVER Al Hydroxide/Mg Hydroxide 30 ml 11/23/17 13:14 Mylanta Oral Suspension - PO Q6H PRN DYSPEPSIA Bacitracin 0.9 gm 11/27/17 14:00 11/30/17 10:31 Bacitracin - TP 0.9 gm DAILY SABRINA Administration Cephalexin HCl 250 mg 11/30/17 18:00 Keflex - PO 12/07/17 17:59 Q6HPO SABRINA Docusate Sodium 100 mg 11/28/17 13:41 Colace - PO BID PRN CONSTIPATION Eucalyptus/Menthol/Phenol/Sorbitol 1 each 11/23/17 13:14 Cepastat Lozenge - MM Q4H PRN SORE THROAT Gabapentin 300 mg 11/23/17 16:30 11/30/17 13:35 Neurontin - PO 300 mg TID SABRINA Administration Guaifenesin 10 ml 11/23/17 13:14 Robitussin Dm - PO Q6H PRN COUGH Hydrocortisone Acetate 25 mg 11/28/17 22:00 11/29/17 22:05 Anusol Hc Suppository - RC 25 mg HS SABRINA Administration Hydroxyzine Pamoate 50 mg 11/23/17 13:14 11/30/17 10:32 Vistaril - PO 50 mg Q4H PRN Administration AGITATION Ibuprofen 400 mg 11/23/17 13:14 Motrin - PO Q6H PRN Pain Level 4-6 Loperamide HCl 4 mg 11/23/17 13:14 11/28/17 22:10 Imodium - PO 4 mg Q6H PRN Administration DIARRHEA Magnesium Citrate 300 ml 11/23/17 13:14 Citroma - PO Q48H PRN CONSTIPATION Magnesium Hydroxide 30 ml 11/23/17 13:14 11/24/17 16:15 Milk Of Magnesia - PO 30 ml DAILY PRN Administration CONSTIPATION Nicotine 21 mg 11/24/17 10:00 11/30/17 10:31 Nicoderm Patch - TD Not Given DAILY SABRINA Nicotine Polacrilex 2 mg 11/23/17 13:16 Nicorette Gum - BUC Q2H PRN NICOTINE REPLACEMENT RX Multivit/Folic Acid/Iron 1 tab 11/24/17 10:00 11/30/17 10:32 Vitamins (Sjr) - PO Not Given DAILY SABRINA Pseudoephedrine/Triprolidine 1 combo 11/23/17 13:14 Actifed - PO TID PRN NASAL CONGESTION Thiamine HCl 100 mg 11/23/17 22:00 11/29/17 22:05 Vitamin B1 - PO 100 mg HS SABRINA Administration Trazodone HCl 100 mg 11/30/17 22:00 Desyrel - PO HS SABRINA Current Side Effect: No Lab tests ordered: No Lab tests reviewed: Yes Provider note:: Chart was revuewed,patient was seen today in my office to address her ongoing sleeping difficulties.She reports that Belsomra is not working at all for her.Properties of Trazodone has been discussed with the patient including side effect profile,benefits and dose adjustment.D/C Belsomra ,start Trazodone 100 mg po hs. supportive therapy provided. Total face to face time:: 25 Mental Status Exam - Mental Status Exam Alert and Oriented to: Time, Place, Person Cognitive Function: Grossly Intact Patient Appearance: Well Groomed Mood: Anxious Affect: Mood Congruent, Labile Patient Behavior: Cooperative Speech Pattern: Clear Voice Loudness: Normal Thought Process: Goal Oriented Thought Disorder: Not Present Hallucinations: Denies Suicidal Ideation: Denies Homicidal Ideation: Denies Insight/Judgement: Fair Sleep: Difficulty falling asleep Appetite: Good Muscle strength/Tone: Normal Gait/Station: Normal Psychiatric Treatment Plan - Problem List (1) Cannabis dependence Current Visit: Yes (2) History of anemia Current Visit: Yes (3) Substance-induced sleep disorder Current Visit: Yes (4) Drug-induced mood disorder Current Visit: Yes (5) Opioid dependence Current Visit: Yes (6) Nicotine dependence Current Visit: Yes (7) Asthma Current Visit: Yes (8) Alcohol dependence Current Visit: Yes
[2017-11-30] MEDS: CEPHALEXIN MONOHYDRATE 250 MG CAPSULE (FP) PO SCH ×2 (17:24→23:42)
[2017-11-30] MEDS: HYDROCORTISONE ACETATE 25 MG/SUPP.RECT RC SCH (21:54)
[2017-11-30] MEDS: THIAMINE HCL 100 MG TABLET (FP) PO SCH (21:54)
[2017-11-30] MEDS: traZODone HCL 100 MG TABLET (FP) PO SCH (21:54)
[2017-11-30] MEDS ORDERED: PT OWN MED DRAWER 7, Y5N ONE (21:55)
[2017-12-01] MEDS: GABAPENTIN 300 MG CAPSULE (FP) PO SCH ×3 (06:58→21:56)
[2017-12-01] MEDS: CEPHALEXIN MONOHYDRATE 250 MG CAPSULE (FP) PO SCH ×4 (06:58→23:30)
[2017-12-01] MEDS: NICOTINE 21 MG/24 HOURS TOPICAL PATCH TD SCH (09:40)
[2017-12-01] MEDS: BACITRACIN 0.9 GM PACKET TP SCH (09:40)
[2017-12-01] MEDS: PRENATAL VITAMINS W/ FOLIC ACID TABLET (FP) PO SCH (09:40)
[2017-12-01] MEDS ORDERED: PT OWN MED DRAWER 7, Y5N ONE ×2 (12:09→20:36)
[2017-12-01] MEDS: LOPERAMIDE HCL 2 MG CAPSULE PO PRN (20:50)
[2017-12-01] MEDS: HYDROCORTISONE ACETATE 25 MG/SUPP.RECT RC SCH (21:56)
[2017-12-01] MEDS: THIAMINE HCL 100 MG TABLET (FP) PO SCH (21:56)
[2017-12-01] MEDS: traZODone HCL 100 MG TABLET (FP) PO SCH (21:56)
[2017-12-01] MEDS: hydrOXYzine PAMOATE 50 MG CAPSULE (FP) PO PRN (21:57)
[2017-12-02] MEDS: CEPHALEXIN MONOHYDRATE 250 MG CAPSULE (FP) PO SCH ×4 (06:49→23:33)
[2017-12-02] MEDS: GABAPENTIN 300 MG CAPSULE (FP) PO SCH ×3 (06:49→21:53)
[2017-12-02] MEDS: LOPERAMIDE HCL 2 MG CAPSULE PO PRN ×2 (06:55→23:33)
[2017-12-02] MEDS: BACITRACIN 0.9 GM PACKET TP SCH (10:02)
[2017-12-02] MEDS: PRENATAL VITAMINS W/ FOLIC ACID TABLET (FP) PO SCH (10:02)
[2017-12-02] MEDS: NICOTINE 21 MG/24 HOURS TOPICAL PATCH TD SCH (10:02)
[2017-12-02] MEDS: HYDROCORTISONE ACETATE 25 MG/SUPP.RECT RC SCH (21:53)
[2017-12-02] MEDS: traZODone HCL 100 MG TABLET (FP) PO SCH (21:53)
[2017-12-02] MEDS: THIAMINE HCL 100 MG TABLET (FP) PO SCH (21:53)
[2017-12-02] MEDS: hydrOXYzine PAMOATE 50 MG CAPSULE (FP) PO PRN (21:54)
[2017-12-03] MEDS: CEPHALEXIN MONOHYDRATE 250 MG CAPSULE (FP) PO SCH ×3 (07:11→18:10)
[2017-12-03] MEDS: GABAPENTIN 300 MG CAPSULE (FP) PO SCH ×3 (07:11→22:10)
[2017-12-03 07:30] VITALS: BP 95/65; PULSE 94; TEMP 98.5
[2017-12-03] MEDS: BACITRACIN 0.9 GM PACKET TP SCH (10:13)
[2017-12-03] MEDS: PRENATAL VITAMINS W/ FOLIC ACID TABLET (FP) PO SCH (10:13)
[2017-12-03] MEDS: NICOTINE 21 MG/24 HOURS TOPICAL PATCH TD SCH (10:13)
[2017-12-03] MEDS: hydrOXYzine PAMOATE 50 MG CAPSULE (FP) PO PRN ×2 (13:12→18:11)
[2017-12-03] MEDS: THIAMINE HCL 100 MG TABLET (FP) PO SCH (22:10)
[2017-12-03] MEDS: HYDROCORTISONE ACETATE 25 MG/SUPP.RECT RC SCH (22:10)
[2017-12-03] MEDS: traZODone HCL 100 MG TABLET (FP) PO SCH (22:10)
== END 2017-12-03 11:45 | disposition left against medical advice (07) | DRG 770 ==
LOC: YASAS 12:30 → Y3E 12:31
PROVIDERS: ADMIT Psychiatry & Neurology Psychiatry; ATTEND Psychiatry & Neurology Psychiatry
PROC: HZ42ZZZ Group Counseling for Substance Abuse Treatment, Cognitive-Behavioral (ICD-10-PCS; principal; 2017-11-23)
DX: F11.20 Opioid dependence, uncomplicated (principal); F10.20 Alcohol dependence, uncomplicated; F12.20 Cannabis dependence, uncomplicated; F17.210 Nicotine dependence, cigarettes, uncomplicated; F19.282 Other psychoactive substance dependence with psychoactive substance-induced sleep disorder; F19.24 Other psychoactive substance dependence with psychoactive substance-induced mood disorder; L02.91 Cutaneous abscess, unspecified; Z86.2 Personal history of diseases of the blood and blood-forming organs and certain disorders involving the immune mechanism

== ENCOUNTER 2018-02-20 04:35 | Emergency (ER) | payer OTHER ==
[2018-02-20 05:29] VITALS: BP 113/59; PULSE 73; TEMP 98.6; BMI 22.2
[2018-02-20 05:37] LABS: BASO % 0.4 % (0-2.0); EOS % 0.3 % (0-4.5); HEMATOCRIT 42.6 % (32.4-45.2); HEMOGLOBIN 14.9 GM/dL (10.7-15.3); LYMPH % 17.5 % (8-40); MCH 34.8 pg (25.7-33.7); MEAN CELL VOLUME 99.4 fl (80-96); MONO % 7.7 % (3.8-10.2); NEUT % 74.1 % (42.8-82.8); PLATELET COUNT 247 K/MM3 (134-434); RBC 4.29 M/mm3 (3.60-5.2); WHITE BLOOD COUNT 6.8 K/mm3 (4.0-10.0)
[2018-02-20] MEDS ORDERED: SODIUM CHLORIDE 1,000 ML IV STA (05:40)
--- NOTE | 2018-02-20 05:54 | PDOC ---
History of Present Illness - History of Present Illness Initial Comments: 02/20/18 06:05 The patient is a 22 year old female A1, with a significant past medical history of opioid dependence, who presents to the emergency department with, 1 week of nausea and vomiting. As per patient, she recently found out she was a week ago. She reports her LMP was approximately 4 months ago and it is normally regular in nature. When her symptoms initially onset she reports that she believed it was morning sickness. She reports that the nausea and emesis has persisted with decreased PO intake. She describes her emesis as just the percocet pills. She also endorses daily percocet usage of 15-20 of 10mg percocets. Over the past 5 hours, she reports ingesting 16 pills. She has gone to detox in the past but, she reports that she has relapsed. She denies any suicidal or homicidal ideation. She denies any vaginal bleeding or abnormal discharge. She denies recent fevers, chills, headache or dizziness. She denies recent diarrhea or constipation. She denies recent dysuria, frequency, urgency or hematuria. She denies recent chest pain or shortness of breath. Allergies: NKA Past surgical history: Breast augmentation. Liposuction. Social history: Opioid dependence. Smoker. <Aura Van - Last Filed: 02/20/18 06:18> - General History Source: Patient Exam Limitations: No Limitations <Oh Miller - Last Filed: 02/21/18 16:05> - General Chief Complaint: Nausea/Vomiting Stated Complaint: VOMITTING/12 WEEKS Time Seen by Provider: 02/20/18 05:38 Past History <Aura Van - Last Filed: 02/20/18 06:18> - Past Medical History Anemia: Yes (NOT CURRENTLY ON MED) Asthma: No Cancer: No Cardiac Disorders: No CVA: No COPD: No CHF: No Dementia: No Diabetes: No GI Disorders: No Disorders: No HTN: No Hypercholesterolemia: No Kidney Stones: No Liver Disease: No Seizures: No Thyroid Disease: No Other medical history: opiod dependence - Surgical History Abdominal Surgery: No (liposuction in 02/2016) Appendectomy: No Cardiac Surgery: No Cholecystectomy: No Lung Surgery: No Neurologic Surgery: No Orthopedic Surgery: No - Reproductive History PID: No - Suicide/Smoking/Psychosocial Hx Smoking History: Current every day smoker Have you smoked in the past 12 months: Yes Number of Cigarettes Smoked Daily: 20 If you are a former smoker, when did you quit?: 2013 Information on smoking cessation initiated: No 'Breaking Loose' booklet given: 11/18/17 Hx Alcohol Use: Yes (drinking since 12 yo on/off) Drug/Substance Use Hx: Yes (marijuana since 12 yo,percoset since 12 yo,20 tab daily,) Substance Use Type: Opiates Hx Substance Use Treatment: Yes (completed detox on ) <Oh Miller - Last Filed: 02/21/18 16:05> - Past Medical History Allergies/Adverse Reactions: Allergies Allergy/AdvReac Type Severity Reaction Status Date / Time No Known Allergies Allergy Verified 02/20/18 05:23 Home Medications: Ambulatory Orders Oxycodone HCl/Acetaminophen [Percocet 5-325 mg Tablet] tab PO Q6H 02/20/18 Review of Systems - Review of Systems Able to Perform ROS?: Yes Comments:: 02/20/18 06:05 GENERAL/CONSTITUTIONAL: No fever or chills. No weakness. HEAD, EYES, EARS, NOSE AND THROAT: No change in vision. No ear pain or discharge. No sore throat. CARDIOVASCULAR: No chest pain or shortness of breath. RESPIRATORY: No cough, wheezing, or hemoptysis. +GASTROINTESTINAL: Nausea. Vomiting. No diarrhea or constipation. GENITOURINARY: No dysuria, frequency, or change in urination. MUSCULOSKELETAL: No joint or muscle swelling or pain. No neck or back pain. SKIN: No rash NEUROLOGIC: No headache, vertigo, loss of consciousness, or change in strength/ sensation. ENDOCRINE: No increased thirst. No abnormal weight change. HEMATOLOGIC/LYMPHATIC: No anemia, easy bleeding, or history of blood clots. ALLERGIC/IMMUNOLOGIC: No hives or skin allergy. All Other Systems: Reviewed and Negative <Aura Van - Last Filed: 02/20/18 06:18> *Physical Exam - Vital Signs Last Vital Signs Temp Pulse Resp BP Pulse Ox 98.6 F 73 20 113/59 99 02/20/18 04:36 02/20/18 04:36 02/20/18 04:36 02/20/18 04:36 02/20/18 04:36 - Physical Exam Comments: 02/20/18 06:06 +GENERAL: Anxious on exam. Awake, alert, and fully oriented, in no acute distress HEAD: No signs of trauma ENT: Hearing grossly normal. NECK: Normal ROM. LUNGS: Breath sounds equal, clear to auscultation bilaterally. No wheezes, and no crackles HEART: Regular rate and rhythm, normal S1 and S2, no murmurs, rubs or gallops ABDOMEN: Soft, nontender, normoactive bowel sounds. No guarding, no rebound. No masses EXTREMITIES: Normal range of motion, no edema. No clubbing or cyanosis. No cords, erythema, or tenderness NEUROLOGICAL: Cranial nerves II through XII grossly intact. Normal speech, normal gait SKIN: Warm, Dry, normal turgor, no rashes or lesions noted. <Aura Van - Last Filed: 02/20/18 06:18> - Vital Signs Last Vital Signs Temp Pulse Resp BP Pulse Ox 98.6 F 73 20 113/59 99 02/20/18 04:36 02/20/18 04:36 02/20/18 04:36 02/20/18 04:36 02/20/18 04:36 <Oh Miller - Last Filed: 02/21/18 16:05> ED Treatment Course - LABORATORY CBC & Chemistry Diagram: 02/20/18 05:24 02/20/18 05:24 - ADDITIONAL ORDERS Additional order review: Laboratory Results 02/20/18 05:24 Sodium 142 Potassium 3.8 Chloride 106 Carbon Dioxide 25 Anion Gap 11 BUN 13 Creatinine 0.7 Creat Clearance w eGFR > 60 Random Glucose 80 Calcium 9.2 Total Bilirubin 0.5 AST 17 ALT 17 Alkaline Phosphatase 49 Total Protein 7.2 Albumin 4.4 Lipase 110 02/20/18 05:24 RBC 4.29 MCV 99.4 H MCHC 35.0 RDW 13.0 MPV 7.0 L D Neutrophils % 74.1 Lymphocytes % 17.5 Monocytes % 7.7 Eosinophils % 0.3 Basophils % 0.4 <Aura Van - Last Filed: 02/20/18 06:18> - LABORATORY CBC & Chemistry Diagram: 02/20/18 05:24 02/20/18 05:24 - RADIOLOGY Radiology Studies Ordered: Category Date Time Status <14WKS US [US] Stat Ultrasound 02/20/18 05:40 Ordered <Oh Miller - Last Filed: 02/21/18 16:05> Medical Decision Making - Medical Decision Making 02/20/18 05:44 A portion of this note was written by my scribe, under my supervision. Vital Signs Temp Pulse Resp BP Pulse Ox 98.6 F 73 20 113/59 99 02/20/18 04:36 02/20/18 04:36 02/20/18 04:36 02/20/18 04:36 02/20/18 04:36 22 year old female with history of percocet abuse presents with nausea and vomiting x 1 week. The patient reports that she has not had her menstrual period in approximately 4 months ago (she reports that she typically is regular). She found out last week that she was . Has not had OB followup or an ultrasound. Started to develop nausea and vomiting, that she initially attributed to morning sickness. Stopped vomiting but continued to have nausea. Never endorsed abdominal pain or vaginal pain. Denies fevers, chills, dysuria. Today, the nausea was particularly worse so came into the ER. She also reports that she abuses 15 to 20 10-325 percocet tablets daily for many years (worse in the last few months). She denies any suicidal ideations. States today, since 12 midnight, patient had already taken 16 tablets today. Again denies abdominal pain. The patient's nausea may be secondary to her . And this will need further investigation, with a beta HCG and a ultrasound. Patient never had vaginal bleeding. Will need to confirm IUP. However, what is more concerning is the percocet abuse. I'm concerned for tylenol toxicity and hepatoxicity as the source of the patient's nausea. We will need to have an acetaminophen level in addition to her blood work sent and have low threshold to initiate NAC. 02/20/18 06:25 CBC, BMP 02/20/18 05:24 02/20/18 05:24 CMP Sodium 142 mmol/L (136-145) 02/20/18 05:24 Potassium 3.8 mmol/L (3.5-5.1) 02/20/18 05:24 Chloride 106 mmol/L (98-107) 02/20/18 05:24 Carbon Dioxide 25 mmol/L (21-32) 02/20/18 05:24 Anion Gap 11 (8-16) 02/20/18 05:24 BUN 13 mg/dL (7-18) 02/20/18 05:24 Creatinine 0.7 mg/dL (0.55-1.02) 02/20/18 05:24 Creat Clearance w eGFR > 60 (>60) 02/20/18 05:24 Random Glucose 80 mg/dL (74-106) 02/20/18 05:24 Calcium 9.2 mg/dL (8.5-10.1) 02/20/18 05:24 Total Bilirubin 0.5 mg/dL (0.2-1.0) 02/20/18 05:24 AST 17 U/L (15-37) 02/20/18 05:24 ALT 17 U/L (12-78) 02/20/18 05:24 Alkaline Phosphatase 49 U/L (45-117) 02/20/18 05:24 Total Protein 7.2 g/dl (6.4-8.2) 02/20/18 05:24 Albumin 4.4 g/dl (3.4-5.0) 02/20/18 05:24 Lipase 110 U/L (73-393) 02/20/18 05:24 Beta HCG, Quant < 1.0 mIU/ml 02/20/18 05:30 Acetaminophen level pending. Beta HCG is undetectable. Ultrasound cancelled. 02/20/18 06:32 I had discussed the beta HCG results with the patient. She insists that she did indeed test positive. She tells me that she saw a physician about this as well. I had told her that we will repeat the beta HCG and touch base again. Pt was signed out to Dr. Graham for further management. <Oh Miller - Last Filed: 02/21/18 16:05> *DC/Admit/Observation/Transfer - Attestations Scribe Attestion: 02/20/18 06:07 Documentation prepared by Aura Van, acting as director medical writing for Oh Miller MD. <Aura Van - Last Filed: 02/20/18 06:18> <Oh Miller - Last Filed: 02/21/18 16:05> Diagnosis at time of Disposition: Opioid dependence Qualifiers: Substance use status: uncomplicated Qualified Code(s): F11.20 - Opioid dependence, uncomplicated - Discharge Dispostion Disposition: [facility] Condition at time of disposition: Unchanged/Unknown
[2018-02-20 06:00] LABS: ALBUMIN 4.4 g/dl (3.4-5.0); ALK PHOS 49 U/L (45-117); ANION GAP 11 (8-16); BILIRUBIN,TOTAL 0.5 mg/dL (0.2-1.0); BLOOD UREA NITROGEN 13 mg/dL (7-18); CALCIUM 9.2 mg/dL (8.5-10.1); CHLORIDE 106 mmol/L (98-107); CO2 25 mmol/L (21-32); CREATININE 0.7 mg/dL (0.55-1.02); GLUCOSE,RANDOM 80 mg/dL (74-106); LIPASE 110 U/L (73-393); POTASSIUM 3.8 mmol/L (3.5-5.1); SGOT/AST 17 U/L (15-37); SGPT/ALT 17 U/L (12-78); SODIUM 142 mmol/L (136-145); TOT PROT 7.2 g/dl (6.4-8.2)
--- NOTE | 2018-02-20 08:22 | PDOC ---
*Physical Exam - Vital Signs Last Vital Signs Temp Pulse Resp BP Pulse Ox 98.6 F 73 20 113/59 99 02/20/18 04:36 02/20/18 04:36 02/20/18 04:36 02/20/18 04:36 02/20/18 04:36 ED Treatment Course - LABORATORY CBC & Chemistry Diagram: 02/20/18 05:24 02/20/18 05:24 - ADDITIONAL ORDERS Additional order review: Laboratory Results 02/20/18 02/20/18 05:30 05:24 Sodium 142 Potassium 3.8 Chloride 106 Carbon Dioxide 25 Anion Gap 11 BUN 13 Creatinine 0.7 Creat Clearance w eGFR > 60 Random Glucose 80 Calcium 9.2 Total Bilirubin 0.5 AST 17 ALT 17 Alkaline Phosphatase 49 Total Protein 7.2 Albumin 4.4 Lipase 110 Beta HCG, Quant < 1.0 Salicylates < 4.0 02/20/18 05:24 RBC 4.29 MCV 99.4 H MCHC 35.0 RDW 13.0 MPV 7.0 L D Neutrophils % 74.1 Lymphocytes % 17.5 Monocytes % 7.7 Eosinophils % 0.3 Basophils % 0.4 - Medications Given in the ED: ED Medications Discontinued Medications Generic Name Dose Route Start Last Admin Trade Name Freq PRN Reason Stop Dose Admin Sodium Chloride 1,000 mls @ 1,000 mls/hr 02/20/18 05:40 02/20/18 05:47 Normal Saline - IV 02/20/18 06:39 1,000 mls/hr ASDIR STA Administration Medical Decision Making - Medical Decision Making 02/20/18 08:20 Pt signed out to me by Dr. Miller at 7am shift change. She was pending APAP level , repeat B-HCG (initial test was negative, but patient stated she had confirmation that she was prior to this visit, blood was to be obtained to confirmed there was not an error). Patient is not in bed, not in ED on a full search. All of her contact numbers were called by MARITZA Rivera, left message where able (one of the numbers was incorrect). *DC/Admit/Observation/Transfer Diagnosis at time of Disposition: Opioid dependence Qualifiers: Substance use status: uncomplicated Qualified Code(s): F11.20 - Opioid dependence, uncomplicated - Discharge Dispostion Disposition: ELOPED - Referrals - Patient Instructions - Post Discharge Activity
--- NOTE | 2018-02-20 09:30 | EKG ---
Test Reason : Blood Pressure : / mmHG Vent. Rate : 088 BPM Atrial Rate : 088 BPM P-R Int : 114 ms QRS Dur : 074 ms QT Int : 370 ms P-R-T Axes : 041 030 017 degrees QTc Int : 447 ms NORMAL SINUS RHYTHM WITH SINUS ARRHYTHMIA NONSPECIFIC T WAVE ABNORMALITY ABNORMAL ECG WHEN COMPARED WITH ECG OF 20-NOV-2017 08:54, NO SIGNIFICANT CHANGE WAS FOUND Confirmed by FANNIE LERNER MD ([id number]) on 02/20/2018 9:29:43 AM Referred By: Confirmed By:FANNIE LERNER MD
== END 2018-02-20 08:15 | disposition left against medical advice (07) ==
LOC: JER 04:35
PROC: 3E0337Z Introduction of Electrolytic and Water Balance Substance into Peripheral Vein, Percutaneous Approach (ICD-10-PCS; principal; 2018-02-20)
DX: F11.20 Opioid dependence, uncomplicated (principal)
CPT/HCPCS: 36415; 80053; 80307; 83690; 84702; 85025; 86850; 86900; 86901; 93005; 93010; 96360; 99283-25; J7030

== ENCOUNTER → 2018-04-19 | Emergency (ER) | payer SELFPAY ==
[~2018-04-19] MED LIST: FAMOTIDINE 20 MG/50 ML IVPB 20 MG/50 ML MG IVPB ONE; ONDANSETRON 4 MG/2 ML VIAL IVPUSH ONE; ONDANSETRON 4 MG/2 ML VIAL ONE; SODIUM CHLORIDE 1,000 ML IV STA
--- NOTE | 2018-04-19 00:48 | PDOC ---
History of Present Illness - General Stated Complaint: VOMITING Time Seen by Provider: 04/19/18 00:47 History Source: Patient Exam Limitations: No Limitations - History of Present Illness Initial Comments: 04/19/18 01:26 22 YOF with h/o chronic opioid use, gastritis presenting with nausea, multiple episodes of yellow emesis x 1 week, worse today. a/w diffuse abdominal pain. last ETOH use ~3 days ago. denies abuse no f/c, sob, cp, urinary sx. no travel or precipitating food factors. denies , hematuria, back pain or dysuria. 04/19/18 01:27 Past History - Past Medical History Allergies/Adverse Reactions: Allergies Allergy/AdvReac Type Severity Reaction Status Date / Time No Known Allergies Allergy Verified 04/19/18 00:58 Home Medications: Ambulatory Orders Oxycodone HCl/Acetaminophen [Percocet 5-325 mg Tablet] 1 tab PO Q6H 02/20/18 Pantoprazole Sodium [Protonix -] 40 mg PO DAILY #30 tablet.ec 03/13/18 Sucralfate [Carafate -] 1 gm PO QID #56 tablet 03/13/18 Anemia: Yes (NOT CURRENTLY ON MED) Asthma: No Cancer: No Cardiac Disorders: No CVA: No COPD: No CHF: No DVT: No Dementia: No Diabetes: No GI Disorders: No Disorders: No HTN: No Hypercholesterolemia: No Kidney Stones: No Liver Disease: No Seizures: No Thyroid Disease: No - Surgical History Abdominal Surgery: No (liposuction in 02/2016) Appendectomy: No Cardiac Surgery: No Cholecystectomy: No Lung Surgery: No Neurologic Surgery: No Orthopedic Surgery: No - Reproductive History PID: No - Immunization History Immunization Up to Date: No - Suicide/Smoking/Psychosocial Hx Smoking History: Current every day smoker Have you smoked in the past 12 months: Yes Number of Cigarettes Smoked Daily: 20 If you are a former smoker, when did you quit?: 2013 'Breaking Loose' booklet given: 11/18/17 Hx Alcohol Use: Yes (drinking since 12 yo on/off) Drug/Substance Use Hx: Yes (marijuana since 12 yo,percoset since 12 yo,20 tab daily,) Substance Use Type: Opiates Hx Substance Use Treatment: Yes (completed detox on ) Review of Systems - Review of Systems Comments:: 04/19/18 01:28 Constitutional: no fevers or chills. HEENT: no headache or dizziness. CVS: no cp or syncope. Resp: no sob. Abdomen: +abdominal pain, nausea or vomiting. no diarrhea or constipation Genitourinary: no VB or dysuria/urinary sx MUSCULOSKELETAL: No joint pain and swelling. No neck or back pain. SKIN: no redness or skin changes, no discharge, no rash. Hematologic: no easy bruising/bleeding. NEUROLOGIC: No headache, dizziness, LOC or altered mental status. No weakness, numbness or tingling. All other systems reviewed and negative, or as documented in HPI. *Physical Exam - Physical Exam Comments: 04/19/18 01:27 General: awake, alert, +mild distress 2/2 vomiting. HEENT: NCAT, PERRL, EOMI, clear conjunctiva, anicteric, moist mucus membranes, clear oropharynx, no oral lesions.. Neck: neck supple, FROM Resp: CTAB, normal and even respirations, no respiratory distress CVS: RRR, no murmurs, 2+ peripheral pulses throughout, no peripheral edema Abdomen: soft, NTND, no peritoneal signs. no CVAT. Back: nontender, normal inspection and ROM MSK: no edema, OMNREAL x4, ROM intact. Neuro: alert, oriented appropriately; no focal neurologic deficits Skin: warm and well perfused, cap refill <2 sec, normal color Medical Decision Making - Medical Decision Making 04/19/18 01:28 22 YOF with AP, n/v x 1 week. actively vomiting here DDx abdominal pain: Renal colic, biliary colic, GERD, PUD, gastritis, esophageal spasm, pancreatitis, hepatitis, constipation, colitis, gastroenteritis, UTI, pyelonephritis, ileus, SBO, medication side effect, electrolyte/metabolic derangements. cyclic vomiting syndrome. no lower quad tenderness or sx to suggest pelvic pathology, appy or diverticulitis vitals wnl, no fever, HD appropriate given pepcid, IVF, zofran, will monitor for clinical improvement. abdomen soft and benign, non peritoneal to suggest intra abdominal pathology. she does request ice chips/ s/o overnight team, Dr. De Leon pending reeval, labs, preg test/UA and ultimate dispo. 04/19/18 01:30 *DC/Admit/Observation/Transfer Diagnosis at time of Disposition: Nausea and vomiting - Discharge Dispostion Condition at time of disposition: Good - Referrals - Patient Instructions - Post Discharge Activity
[2018-04-19 00:58] VITALS: BP 102/65; PULSE 73; TEMP 98.8; BMI 22.2
[2018-04-19 02:08] LABS: BASO % 0.3 % (0-2.0); EOS % 0.1 % (0-4.5); HEMATOCRIT 45.9 % (32.4-45.2); HEMOGLOBIN 15.1 GM/dL (10.7-15.3); LYMPH % 12.3 % (8-40); MCH 33.4 pg (25.7-33.7); MEAN CELL VOLUME 101.3 fl (80-96); MEAN PLT VOLUME 7.5 fl (7.5-11.1); NEUT % 82.3 % (42.8-82.8); PLATELET COUNT 335 K/MM3 (134-434); RBC 4.53 M/mm3 (3.60-5.2); RDW 13.6 % (11.6-15.6); WHITE BLOOD COUNT 13.8 K/mm3 (4.0-10.0)
[2018-04-19 02:54] LABS: ALBUMIN 4.5 g/dl (3.4-5.0); ALK PHOS 51 U/L (45-117); ANION GAP 9 MMOL/L (8-16); BILIRUBIN,TOTAL 0.8 mg/dL (0.2-1); BLOOD UREA NITROGEN 14 mg/dL (7-18); CALCIUM 9.8 mg/dL (8.5-10.1); CHLORIDE 103 mmol/L (98-107); CO2 26 mmol/L (21-32); CREATININE 0.6 mg/dL (0.55-1.3); GLUCOSE,RANDOM 91 mg/dL (74-106); LIPASE 140 U/L (73-393); POTASSIUM 3.9 mmol/L (3.5-5.1); SGOT/AST 22 U/L (15-37); SGPT/ALT 19 U/L (13-61); SODIUM 138 mmol/L (136-145); TOT PROT 8.1 g/dl (6.4-8.2)
--- NOTE | 2018-04-19 03:08 | PDOC ---
*Physical Exam - Vital Signs Last Vital Signs Temp Pulse Resp BP Pulse Ox 98.8 F 73 18 102/65 100 04/19/18 00:40 04/19/18 00:40 04/19/18 00:40 04/19/18 00:40 04/19/18 00:40 ED Treatment Course - LABORATORY CBC & Chemistry Diagram: 04/19/18 01:30 04/19/18 01:30 - ADDITIONAL ORDERS Additional order review: Laboratory Results 04/19/18 04/19/18 01:39 01:30 Sodium 138 Potassium 3.9 Chloride 103 Carbon Dioxide 26 Anion Gap 9 BUN 14 Creatinine 0.6 Creat Clearance w eGFR > 60 Random Glucose 91 Calcium 9.8 Total Bilirubin 0.8 AST 22 ALT 19 Alkaline Phosphatase 51 Total Protein 8.1 Albumin 4.5 Lipase 140 Urine HCG, Qual Cancelled 04/19/18 01:30 RBC 4.53 MCV 101.3 H MCHC 33.0 RDW 13.6 MPV 7.5 Neutrophils % 82.3 Lymphocytes % 12.3 Monocytes % 5.0 Eosinophils % 0.1 Basophils % 0.3 - Medications Given in the ED: ED Medications Discontinued Medications Generic Name Dose Route Start Last Admin Trade Name Freq PRN Reason Stop Dose Admin Famotidine/Sodium Chloride 20 mg in 50 mls @ 100 mls/hr 04/19/18 01:00 01:30 Pepcid 20 Mg Premixed Ivpb - IVPB 04/19/18 01:29 100 mls/hr ONCE ONE Administration Sodium Chloride 1,000 mls @ 1,000 mls/hr 04/19/18 00:47 04/19/18 01:30 Normal Saline - IV 04/19/18 01:46 1,000 mls/hr ASDIR STA Administration Ondansetron HCl 4 mg 04/19/18 00:49 04/19/18 01:30 Zofran Injection IVPUSH 04/19/18 00:50 4 mg ONCE ONE Administration Medical Decision Making - Medical Decision Making 04/19/18 03:06 Pt re assessed She is resting comfortably She presented to the ER with intractable vomiting issue with test Will re send serum 04/19/18 04:35 HCG (+) Pt told about this She states, she had a feeling she was 04/19/18 04:54 Pt eloped from the ER with IV Trying to track down this patient to request that she return to the ER *DC/Admit/Observation/Transfer Diagnosis at time of Disposition: Nausea and vomiting Qualifiers: Vomiting type: unspecified Vomiting Intractability: non-intractable Qualified Code(s): R11.2 - Nausea with vomiting, unspecified Qualifiers: Weeks of gestation: unspecified Qualified Code(s): Z34.90 - Encounter for supervision of normal , unspecified, unspecified trimester - Discharge Dispostion Disposition: HOME Condition at time of disposition: Stable Decision to Admit order: No - Prescriptions Prescriptions: Metoclopramide HCl [Reglan] 10 mg PO BID PRN #10 tablet PRN Reason: vomiting - Referrals Referrals: Dorinda Quick MD [Staff Physician] - - Patient Instructions Printed Discharge Instructions: DI for Hyperemesis Gravidarum, DI for -- Discomforts and Remedies, DI for Nausea -- Adult, DI for Vomiting - - Adult Additional Instructions: Rossana Thank you for coming in to the ER Please be sure to follow up with OB for further management Please return to the ER for severe lower abdominal pain, vaginal bleeding, or any other concerns or complaints - Post Discharge Activity
== END | disposition home or self-care (01) ==
LOC: JER 00:36
PROC: 3E033GC Introduction of Other Therapeutic Substance into Peripheral Vein, Percutaneous Approach (ICD-10-PCS; principal; 2018-04-19)
PROC: 3E0337Z Introduction of Electrolytic and Water Balance Substance into Peripheral Vein, Percutaneous Approach (ICD-10-PCS; 2018-04-19)
DX: R11.2 Nausea with vomiting, unspecified (principal)
CPT/HCPCS: 36415; 80053; 83690; 84702; 84703; 85025; 99282-25; J7030

== ENCOUNTER 2018-05-16 11:30 | Inpatient (IN) | payer OTHER ==
[2018-05-16 11:55] VITALS: BMI 22.6
--- NOTE | 2018-05-16 14:16 | HP ---
COWS - Scale Resting Pulse: 0= [place] 80 or Below Sweatin=Flushed/Facial Moisture Restless Observation: 1= Difficult to Sit Still Pupil Size: 2= Moderately Dilated Bone or Joint Aches: 2= Severe Diffuse Aches Runny Nose/ Eye Tearin= None GI Upset > 30mins: 2= Nausea/Diarrhea Tremor Observation: 2= Slight Tremor Visible Yawning Observation: 0= None Anxiety or Irritability: 2=Irritable/Anxious Goose Flesh Skin: 0=Smooth Skin COWS Score: 13 CIWA Score - Admission Criteria OAS Guidelines: Admission for Medically Managed Detox: Requires at least one of the followin. CIWA greater than 12 2. Seizures within the past 24 hours 3. Delirium tremens within the past 24 hours 4. Hallucinations within the past 24 hours 5. Acute intervention needed for co occurring medical disorder 6. Acute intervention needed for co occurring psychiatric disorder 7. Severe withdrawal that cannot be handled at a lower level of care (continued vomiting, continued diarrhea, abnormal vital signs) requiring intravenous medication and/or fluids 8. Admission ROS [facility] Chief Complaint: OPIOD WITHDRAWAL SYMPTOMS. Allergies/Adverse Reactions: Allergies Allergy/AdvReac Type Severity Reaction Status Date / Time No Known Allergies Allergy Verified 05/16/18 12:43 History of Present Illness: PATIENT PRESENTS WITH OPIOD WITHDRAWAL SYMPTOMS. PATIENT STARTED TAKING PERCOCET AT AGE 12 AND TAKES UP TO 20 TABLETS OF 10/325MG OXYCODONE DAILY. LAST TIME SHE TOOK MEDICATION WAS YESTERDAY. 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 PATIENT HAS HAD MULTIPLE ADMISSIONS TO DETOX THIS PAST YEAR. PATIENT WENT TO [facility] ER THIS MORNING FOR VOMITING AND HAD EGD DONE. STATES SHE WAS DX WITH ACID REFLUX. PATIENT DENIES HX OF OVERDOSE AND BLACKOUTS. OCCASIONALLY TAKES VALIUM TO HELP HER SLEEP, NON-PRESCRIBED. PATIENT ALSO SMOKES MARIJUANA. PMH INCLUDES DEPRESSION/ANXIETY. DENIES SI/HI AND SUICIDE ATTEMPTS. Exam Limitations: No Limitations - Ebola screening Have you traveled outside of the country in the last 21 days: No Have you had contact with anyone from an Ebola affected area: No Have you been sick,other than usual withdrawal symptoms: No Do you have a fever: No - Review of Systems Constitutional: Chills, Night Sweats, Changes in sleep EENT: reports: No Symptoms Reported Respiratory: reports: No Symptoms reported Cardiac: reports: No Symptoms Reported GI: reports: Nausea, Poor Fluid Intake, Indigestion, Abdominal cramping : reports: No Symptoms Reported Musculoskeletal: reports: Back Pain, Muscle Pain Integumentary: reports: Sweating Neuro: reports: Headache, Tremors Endocrine: reports: No Symptoms Reported Hematology: reports: Anemia Psychiatric: reports: Orientated x3, Anxious, Depressed Patient History - Patient Medical History Hx Anemia: Yes (NOT CURRENTLY ON MED) Hx Asthma: No Hx Chronic Obstructive Pulmonary Disease (COPD): No Hx Cancer: No Hx Cardiac Disorders: No Hx Congestive Heart Failure: No Hx Hypertension: No Hx Hypercholesterolemia: No Hx Pacemaker: No HX Cerebrovascular Accident: No Hx Seizures: No Hx Dementia: No Hx Diabetes: No Hx Gastrointestinal Disorders: No Hx Liver Disease: No Hx Genitourinary Disorders: No Hx Sexually Transmitted Disorders: No Hx Renal Disease (ESRD): No Hx Thyroid Disease: No Hx Human Immunodeficiency Virus (HIV): No (NEGATIVE HX, LAST TEST ONE MONTH AGO AND NEGATIVE) Hx Hepatitis C: No Hx Depression: Yes Hx Suicide Attempt: No Hx Bipolar Disorder: No Hx Schizophrenia: No - Patient Surgical History Past Surgical History: No Hx Neurologic Surgery: No Hx Cataract Extraction: No Hx Cardiac Surgery: No Hx Lung Surgery: No Hx Breast Surgery: No Hx Breast Biopsy: No Hx Abdominal Surgery: Yes (liposuction in 02/2016) Hx Appendectomy: No Hx Cholecystectomy: No Hx Genitourinary Surgery: No Hx Section: No Hx Orthopedic Surgery: No Other Surgical History: LIPOSUCTION IN 02/16. Anesthesia Reaction: No - PPD History Previous Implant?: Yes Documented Results: Negative w/proof Implanted On Prior [facility] Admission?: Yes Date: 11/20/17 Results: 0mm PPD to be Administered?: No - Reproductive History Last Menstrual Period: 05/18/18 Patient : No - Smoking Cessation Smoking history: Former smoker Have you smoked in the past 12 months: Yes Aproximately how many cigarettes per day: 20 If you are a former smoker, when did you quit?: 2014 Cigars Per Day: 0 Hx Chewing Tobacco Use: No Initiated information on smoking cessation: Yes 'Breaking Loose' booklet given: 05/16/18 - Substance & Tx. History Hx Alcohol Use: No Hx Substance Use: Yes Substance Use Type: Marijuana, Opiates, Tranquilizers Hx Substance Use Treatment: Yes - Substances Abused Marijuana/Hashish Route: Smoking Frequency: Daily Amount used: 10 bags Age of first use: 12 Date of Last Use: 05/15/18 percocept Route: Oral Frequency: Daily Amount used: 26 10 mg of percocept tablets Age of first use: 12 Date of Last Use: 05/15/18 Family Disease History - Family Disease History Family Disease History: Other: Sister (opiate dependence) Admission Physical Exam [facility] - Vital Signs Vital Signs: Vital Signs - 24 hr 05/16/18 11:48 Temperature 99.3 F Pulse Rate 69 Respiratory 19 Rate Blood Pressure 122/79 - Physical General Appearance: Yes: Appropriately Dressed, Tremorous, Sweating, Anxious HEENTM: Yes: EOMI, Hearing grossly Normal, Normal ENT Inspection, Normocephalic , Normal Voice, GILA, Pharynx Normal Respiratory: Yes: Chest Non-Tender, Lungs Clear, Normal Breath Sounds, No Respiratory Distress, No Accessory Muscle Use Neck: Yes: No masses,lesions,Nodules, Supple Breast: Yes: Breast Exam Deferred Cardiology: Yes: Regular Rhythm, Regular Rate, S1, S2 Abdominal: Yes: Normal Bowel Sounds, Non Tender, Soft Genitourinary: Yes: Within Normal Limits Back: Yes: Normal Inspection, Muscle Spasm Musculoskeletal: Yes: full range of Motion, Gait Steady, Back pain, Muscle Pain Extremities: Yes: Normal Inspection, Normal Range of Motion, Non-Tender, Tremors 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: charge aide II-XII NML intact, Fully Oriented, Alert, Motor Strength 5/5, Normal Response, Depressed Affect Integumentary: Yes: Normal Color, Warm, Moist Lymphatic: Yes: Within Normal Limits - Diagnostic (1) Anxiety and depression Current Visit: Yes Status: Chronic (2) Depressed affect Current Visit: Yes Status: Chronic (3) Gastritis and duodenitis Current Visit: Yes Status: Chronic (4) Insomnia Current Visit: Yes Status: Chronic Qualifiers: Insomnia type: primary Qualified Code(s): F51.01 - Primary insomnia (5) Opioid dependence with withdrawal Current Visit: Yes Status: Acute (6) Cannabis dependence Current Visit: Yes Status: Chronic Cleared for Admission [facility] - Detox or Rehab [facility] Level of Care: Medically Managed Detox Regimen/Protocol: Methadone [facility] Breath Alcohol Content Breath Alcohol Content: 0 Urine Pregancy Test - Result Urine Test Results: Negative- NO Line Present Urine Drug Screen - Results Drug Screen Negative: No Urine Drug Screen Results: THC-Marijuana, MET-Methamphetamine, BZO- Benzodiazepines, OXY-Oxycodone
[2018-05-16] MEDS ORDERED: guaiFENesin/D-METHORPHAN HB 10 ML UNIT-DOSE CUPS PO PRN (14:25)
[2018-05-16] MEDS ORDERED: LOPERAMIDE HCL 2 MG CAPSULE PO PRN (14:25)
[2018-05-16] MEDS ORDERED: P-EPHED 60MG/TRIPROLIDI 2.5MG TABLET PO PRN (14:25)
[2018-05-16] MEDS ORDERED: MAGNESIUM CITRATE 300 ML BOTTLE PO PRN (14:25)
[2018-05-16] MEDS ORDERED: MENTHOL/PHENOL 1 EACH UD MM PRN (14:25)
[2018-05-16] MEDS ORDERED: MAGNESIUM HYDROX 2400MG/30ML ORAL SUSPENSION 30 ML CUP PO PRN (14:25)
[2018-05-16] MEDS ORDERED: NICOTINE POLACRILEX 2 MG GUM BC PRN (14:25)
[2018-05-16] MEDS ORDERED: ACETAMINOPHEN 325 MG TABLET (FP) PO PRN (14:25)
[2018-05-16] MEDS ORDERED: MAG HYDROX/AL HYDROX/SIMETH 30 ML UNIT-DOSE CUP PO PRN (14:25)
[2018-05-16] MEDS ORDERED: METHADONE HCL 10 MG TABLET (FOR DETOX USE ONLY) PO ONE ×2 (15:00→23:00)
[2018-05-16] MEDS: diazePAM 5 MG TABLET PO PRN ×2 (18:05→22:20)
[2018-05-16 18:14] LABS: URINE APPEARANCE CLOUDY; URINE BILIRUBIN NEGATIVE (<2.0 mg/dL); URINE COLOR AMBER; URINE GLUCOSE (UA) NEGATIVE (NEGATIVE); URINE KETONE 1+ (NEGATIVE); URINE LEUK ESTERASE NEGATIVE (NEGATIVE); URINE NITRITE NEGATIVE (NEGATIVE); URINE PROTEIN 1+ (NEGATIVE)
[2018-05-16 18:27] LABS: EPI CELLS MANY /HPF (FEW); URINE BACTERIA RARE /hpf (NONE SEEN); URINE MUCUS MANY
[2018-05-16] MEDS: THIAMINE HCL 100 MG TABLET (FP) PO SCH (22:20)
[2018-05-16] MEDS: MELATONIN 5 MG TABLETS PO PRN (22:20)
[2018-05-17] MEDS: diazePAM 5 MG TABLET PO PRN ×3 (05:45→19:12)
--- NOTE | 2018-05-17 07:56 | CONSULT ---
[facility] Psychiatric Consult - Data Date of interview: 05/17/18 Admission source: [facility] Identifying data: This is 22 years old [place], single, living alone, unemployued, with no psychiatric hospitalization history, with Opioids, Cannabis dependence, reports withdrawal synptoms and seeking detox. Denies suicidal, homicidal ideations. Substance Abuse History: - Smoking Cessation. Smoking history: Former smoker. Have you smoked in the past 12 months: Yes. Aproximately how many cigarettes per day: 20. If you are a former smoker, when did you quit?: 2013. Cigars Per Day: 0. Hx Chewing Tobacco Use: No. Initiated information on smoking cessation : Yes. 'Breaking Loose' booklet given: 05/16/18. - Substance & Tx. History. Hx Alcohol Use: No. Hx Substance Use: Yes. Substance Use Type: Marijuana, Opiates, Tranquilizers. Hx Substance Use Treatment: Yes. - Substances Abused. Marijuana/Hashish. Route: Smoking. Frequency: Daily. Amount used: 10 bags. Age of first use: 12. Date of Last Use: 05/15/18. percocept. Route : Oral. Frequency: Daily. Amount used: 26 10 mg of percocept tablets. Age of first use: 12. Date of Last Use: 05/15/18 Medical History: Abscess hisatory, Asthma, Gastritis history, Psychiatric History: Gio past psychiatric hospitalization historyu, reports no medications taking prior to admission, denies suicidal anmd homicidal ideations and history. Physical/Sexual Abuse/Trauma History: Denies Additional Comment: Observation. Detox Unit Care Protocol Mental Status Exam - Mental Status Exam Alert and Oriented to: Person Cognitive Function: Fair Patient Appearance: Unkempt Mood: Sad Affect: Flat Patient Behavior: Sedated Speech Pattern: Delayed Voice Loudness: Mildly Soft/Quiet Thought Process: Circumstantial Thought Disorder: Being Controlled Hallucinations: Denies Suicidal Ideation: Denies Homicidal Ideation: Denies Insight/Judgement: Fair Sleep: Difficulty falling asleep Appetite: Fair Muscle strength/Tone: Mild Hypotonicity Gait/Station: Shuffling Additional Comments: Observation. Detox Unit Care Protocol Psychiatric Findings - Problem List ([place] 1, 2,3) (1) Opioid dependence with withdrawal Current Visit: Yes Status: Acute (2) Anxiety and depression Current Visit: Yes Status: Chronic (3) Cannabis dependence Current Visit: Yes Status: Chronic (4) Depressed affect Current Visit: Yes Status: Chronic (5) Alcohol dependence with uncomplicated withdrawal Current Visit: No Status: Acute (6) Drug-induced mood disorder Current Visit: No Status: Chronic (7) Opioid dependence Current Visit: No Status: Chronic Qualifiers: Substance use status: with unspecified opioid-induced disorder Qualified Code(s): F11.29 - Opioid dependence with unspecified opioid-induced disorder (8) Substance-induced sleep disorder Current Visit: No Status: Chronic - Initial Treatment Plan Initial Treatment Plan: Observation. Detox Unit Care Protocol
[2018-05-17] MEDS ORDERED: TRIMETHOBENZAMIDE HCL 300 MG CAPSULE PO PRN (09:35)
[2018-05-17 10:00] LABS: HEMOGLOBIN 13.3 GM/dL (10.7-15.3); MCH 33.3 pg (25.7-33.7); MCHC 33.3 g/dl (32.0-36.0); MEAN PLT VOLUME 7.2 fl (7.5-11.1); PLATELET COUNT 264 K/MM3 (134-434); RDW 12.9 % (11.6-15.6); WHITE BLOOD COUNT 6.7 K/mm3 (4.0-10.0)
[2018-05-17] MEDS ORDERED: METHADONE HCL 10 MG TABLET (FOR DETOX USE ONLY) PO ONE (10:00)
[2018-05-17] MEDS: PANTOPRAZOLE 40 MG TABLET (FP) PO SCH (10:09)
[2018-05-17] MEDS: PRENATAL VITAMINS W/ FOLIC ACID TABLET (FP) PO SCH (10:09)
[2018-05-17] MEDS: NICOTINE 21 MG/24 HOURS TOPICAL PATCH TD SCH (10:11)
[2018-05-17 10:35] LABS: ALK PHOS 46 U/L (45-117); ANION GAP 10 MMOL/L (8-16); BILIRUBIN,TOTAL 0.9 mg/dL (0.2-1); BLOOD UREA NITROGEN 19 mg/dL (7-18); CALCIUM 8.7 mg/dL (8.5-10.1); CHLORIDE 102 mmol/L (98-107); CO2 29 mmol/L (21-32); CREATININE 0.6 mg/dL (0.55-1.3); GLUCOSE,RANDOM 82 mg/dL (74-106); POTASSIUM 3.4 mmol/L (3.5-5.1); SGOT/AST 7 U/L (15-37); SGPT/ALT 15 U/L (13-61); SODIUM 141 mmol/L (136-145); TOT PROT 6.5 g/dl (6.4-8.2)
--- NOTE | 2018-05-17 11:28 | PN ---
[facility] COWS - Scale Resting Pulse: 1= [place] 81-100 Sweatin=Flushed/Facial Moisture Restless Observation: 1= Difficult to Sit Still Pupil Size: 0= Normal to Room Light Bone or Joint Aches: 2= Severe Diffuse Aches Runny Nose/ Eye Tearin= Nasal Congestion GI Upset > 30mins: 1= Stomach Cramp Tremor Observation of Outstretched Hands: 2= Slight Tremor Visible Yawning Observation: 2= >3x During Session Anxiety or Irritability: 2=Irritable/Anxious Goose Flesh Skin: 0=Smooth Skin COWS Score: 14 BHS Progress Note (SOAP) Subjective: agitation sweats chills stomach cramping interrupted sleep Objective: 05/17/18 11:26 Vital Signs Temperature 97.9 F 05/17/18 10:04 Pulse Rate 83 05/17/18 10:04 Respiratory Rate 18 05/17/18 10:04 Blood Pressure 114/91 05/17/18 10:04 O2 Sat by Pulse Oximetry (%) Laboratory Tests 05/16/18 05/17/18 05/17/18 16:56 07:00 07:00 WBC 6.7 RBC 4.00 Hgb 13.3 Hct 40.0 MCV 100.0 H MCH 33.3 MCHC 33.3 RDW 12.9 Plt Count 264 D MPV 7.2 L Sodium 141 Potassium 3.4 L Chloride 102 Carbon Dioxide 29 Anion Gap 10 BUN 19 H Creatinine 0.6 Creat Clearance w eGFR > 60 Random Glucose 82 Calcium 8.7 Total Bilirubin 0.9 AST 7 L ALT 15 Alkaline Phosphatase 46 Total Protein 6.5 Albumin 4.0 Urine Color Annette Urine Appearance Cloudy Urine pH 5.0 Ur Specific [place] 1.033 Urine Protein 1+ H Urine Glucose (UA) Negative Urine Ketones 1+ H Urine Blood Negative Urine Nitrite Negative Urine Bilirubin Negative Urine Urobilinogen 2.0 H Ur Leukocyte Esterase Negative Urine WBC (Auto) 7 Urine RBC (Auto) 2 Ur Epithelial Cells Many Urine Bacteria Rare Urine Mucus Many low potassium 3.4; kdur 20meq x 4 days ordered aaox3 ambulating no acute distress Assessment: 05/17/18 11:27 withdrawal sx Plan: continue detox increase fluids kdur ordered carafate ordered
[2018-05-17] MEDS: POTASSIUM CHLORIDE TABS 20 MEQ TABLET.ER (FP) PO SCH (12:18)
[2018-05-17] MEDS: SUCRALFATE 1 GM TABLET (FP) PO SCH ×2 (12:18→22:24)
[2018-05-17] MEDS ORDERED: QUEtiapine FUMARATE 50 MG TABLET PO SCH (22:00)
[2018-05-17] MEDS: THIAMINE HCL 100 MG TABLET (FP) PO SCH (22:23)
[2018-05-17] MEDS: hydrOXYzine PAMOATE 50 MG CAPSULE (FP) PO PRN (22:23)
[2018-05-17] MEDS: MELATONIN 5 MG TABLETS PO PRN (22:24)
[2018-05-17] MEDS: IBUPROFEN 400 MG TABLET (FP) PO PRN (22:24)
[2018-05-18] MEDS ORDERED: METHADONE HCL 5 MG TABLET (FOR DETOX USE ONLY) PO ONE (10:00)
[2018-05-18] MEDS: diazePAM 5 MG TABLET PO PRN ×3 (10:19→22:22)
[2018-05-18] MEDS: PRENATAL VITAMINS W/ FOLIC ACID TABLET (FP) PO SCH (10:19)
[2018-05-18] MEDS: SUCRALFATE 1 GM TABLET (FP) PO SCH ×2 (10:19→22:21)
[2018-05-18] MEDS: POTASSIUM CHLORIDE TABS 20 MEQ TABLET.ER (FP) PO SCH (10:19)
[2018-05-18] MEDS: PANTOPRAZOLE 40 MG TABLET (FP) PO SCH (10:19)
[2018-05-18] MEDS: NICOTINE 21 MG/24 HOURS TOPICAL PATCH TD SCH (10:23)
--- NOTE | 2018-05-18 11:09 | PN ---
[facility] COWS - Scale Resting Pulse: 1= [place] 81-100 Sweatin=Flushed/Facial Moisture Restless Observation: 1= Difficult to Sit Still Pupil Size: 0= Normal to Room Light Bone or Joint Aches: 1= Mild Discomfort Runny Nose/ Eye Tearin= Nasal Congestion GI Upset > 30mins: 0= None Tremor Observation of Outstretched Hands: 2= Slight Tremor Visible Yawning Observation: 2= >3x During Session Anxiety or Irritability: 2=Irritable/Anxious Goose Flesh Skin: 0=Smooth Skin COWS Score: 12 BHS Progress Note (SOAP) Subjective: agitation sweats shakes interrupted sleep Objective: 05/18/18 11:10 Vital Signs Temperature 97.9 F 05/18/18 09:34 Pulse Rate 82 05/18/18 09:34 Respiratory Rate 18 05/18/18 09:34 Blood Pressure 121/64 05/18/18 09:34 O2 Sat by Pulse Oximetry (%) Laboratory Tests 05/16/18 05/17/18 05/17/18 16:56 07:00 07:00 WBC 6.7 RBC 4.00 Hgb 13.3 Hct 40.0 MCV 100.0 H MCH 33.3 MCHC 33.3 RDW 12.9 Plt Count 264 D MPV 7.2 L Sodium 141 Potassium 3.4 L Chloride 102 Carbon Dioxide 29 Anion Gap 10 BUN 19 H Creatinine 0.6 Creat Clearance w eGFR > 60 Random Glucose 82 Calcium 8.7 Total Bilirubin 0.9 AST 7 L ALT 15 Alkaline Phosphatase 46 Total Protein 6.5 Albumin 4.0 Urine Color Annette Urine Appearance Cloudy Urine pH 5.0 Ur Specific [place] 1.033 Urine Protein 1+ H Urine Glucose (UA) Negative Urine Ketones 1+ H Urine Blood Negative Urine Nitrite Negative Urine Bilirubin Negative Urine Urobilinogen 2.0 H Ur Leukocyte Esterase Negative Urine WBC (Auto) 7 Urine RBC (Auto) 2 Ur Epithelial Cells Many Urine Bacteria Rare Urine Mucus Many RPR Titer 05/17/18 07:00 WBC RBC Hgb Hct MCV MCH MCHC RDW Plt Count MPV Sodium Potassium Chloride Carbon Dioxide Anion Gap BUN Creatinine Creat Clearance w eGFR Random Glucose Calcium Total Bilirubin AST ALT Alkaline Phosphatase Total Protein Albumin Urine Color Urine Appearance Urine pH Ur Specific [place] Urine Protein Urine Glucose (UA) Urine Ketones Urine Blood Urine Nitrite Urine Bilirubin Urine Urobilinogen Ur Leukocyte Esterase Urine WBC (Auto) Urine RBC (Auto) Ur Epithelial Cells Urine Bacteria Urine Mucus RPR Titer Nonreactive aaox3 ambulating no acute distress Assessment: 05/18/18 11:10 withdrawal sx Plan: continue detox increase fluids
--- NOTE | 2018-05-18 14:51 | PN ---
Psychiatric Progress Note Vital Signs: Vital Signs Period Temp Pulse Resp BP Sys/Perez Pulse Ox Last 24 Hr 97.7 F-99.7 F 66-105 16-18 93-121/52-76 Date of Session: 05/18/18 Chief Complaint:: Anxiety, Agitation HPI: Patient reports after taoering Valium she feels anxious day and night time , asking for diet aide. Rec: Seroquel 50mg poqd, 100mg po qhs Current Medications: Active Medications Generic Name Dose Route Start Last Admin Trade Name Freq PRN Reason Stop Dose Admin Acetaminophen 650 mg 05/16/18 14:25 Tylenol - PO Q4H PRN FEVER Al Hydroxide/Mg Hydroxide 30 ml 05/16/18 14:25 Mylanta Oral Suspension - PO Q6H PRN DYSPEPSIA Diazepam 10 mg 05/16/18 14:28 05/18/18 10:19 Valium - PO 05/19/18 14:27 10 mg Q4H PRN Administration WITHDRAWAL(CONT SUBST) Eucalyptus/Menthol/Phenol/Sorbitol 1 each 05/16/18 14:25 Cepastat Lozenge - MM Q4H PRN SORE THROAT Guaifenesin 10 ml 05/16/18 14:25 Robitussin Dm - PO Q6H PRN COUGH Hydroxyzine Pamoate 50 mg 05/16/18 14:25 05/17/18 22:23 Vistaril - PO 50 mg Q4H PRN Administration AGITATION Ibuprofen 400 mg 05/16/18 14:25 05/17/18 22:24 Motrin - PO 400 mg Q6H PRN Administration PAIN LEVEL 4-6 Loperamide HCl 4 mg 05/16/18 14:25 Imodium - PO Q6H PRN DIARRHEA Magnesium Citrate 300 ml 05/16/18 14:25 Citroma - PO Q48H PRN CONSTIPATION Magnesium Hydroxide 30 ml 05/16/18 14:25 Milk Of Magnesia - PO DAILY PRN CONSTIPATION Melatonin 5 mg 05/16/18 22:00 05/17/18 22:24 Melatonin PO 5 mg HS PRN Administration INSOMNIA Methadone HCl 5 mg 05/21/18 06:00 Dolophine - PO 05/21/18 06:01 ONCE@0600 ONE Methadone HCl 15 mg 05/19/18 10:00 Dolophine - PO 05/19/18 10:01 ONCE ONE Methadone HCl 10 mg 05/20/18 10:00 Dolophine - PO 05/20/18 10:01 ONCE ONE Nicotine 21 mg 05/17/18 10:00 05/18/18 10:23 Nicoderm Patch - TD Not Given DAILY SABRINA Nicotine Polacrilex 2 mg 05/16/18 14:25 Nicorette Gum - BC Q2H PRN NICOTINE REPLACEMENT RX Pantoprazole Sodium 40 mg 05/17/18 10:00 05/18/18 10:19 Protonix - PO 40 mg DAILY SABRINA Administration Potassium Chloride 20 meq 05/17/18 11:30 05/18/18 10:19 K-Dur - PO 05/20/18 10:01 20 meq DAILY SABRINA Administration Multivit/Folic Acid/Iron 1 tab 05/17/18 10:00 05/18/18 10:19 Vitamins (Sjr) - PO 1 tab DAILY SABRINA Administration Pseudoephedrine/Triprolidine 1 combo 05/16/18 14:25 Actifed - PO TID PRN NASAL CONGESTION Quetiapine Fumarate 100 mg 05/18/18 22:00 Seroquel - PO HS SABRINA Quetiapine Fumarate 50 mg 05/18/18 22:00 Seroquel - PO HS SABRINA Quetiapine Fumarate 50 mg 05/19/18 10:00 Seroquel - PO DAILY SABRINA Sucralfate 1 gm 05/17/18 11:30 05/18/18 10:19 Carafate - PO 1 gm BID SABRINA Administration Thiamine HCl 100 mg 05/16/18 22:00 05/17/18 22:23 Vitamin B1 - PO 100 mg HS SABRINA Administration Trimethobenzamide HCl 300 mg 05/17/18 09:35 05/17/18 17:37 Tigan - PO 300 mg QID PRN Administration NAUSEA AND/OR VOMITING Medication(s) Change(s): Seroquel 50mg poqd, 100mg po qhs Mental Status Exam - Mental Status Exam Alert and Oriented to: Place, Person Cognitive Function: Fair Patient Appearance: Well Groomed Mood: Anxious Affect: Mood Congruent Patient Behavior: Cooperative Speech Pattern: Appropriate Voice Loudness: Mildly Soft/Quiet Thought Process: Goal Oriented Thought Disorder: Being Controlled Hallucinations: Denies Suicidal Ideation: Denies Homicidal Ideation: Denies Insight/Judgement: Fair Sleep: Difficulty falling asleep Appetite: Fair Muscle strength/Tone: Normal Gait/Station: Normal Additional Comments: Seroquel 50mg poqd, 100mg po qhs Psychiatric Treatment Plan - Problem List (1) Opioid dependence with withdrawal Current Visit: Yes (2) Anxiety and depression Current Visit: Yes (3) Cannabis dependence Current Visit: Yes (4) Depressed affect Current Visit: Yes (5) Alcohol dependence with uncomplicated withdrawal Current Visit: No (6) Drug-induced mood disorder Current Visit: No (7) Opioid dependence Current Visit: No Qualifiers: Substance use status: with unspecified opioid-induced disorder Qualified Code(s): F11.29 - Opioid dependence with unspecified opioid-induced disorder (8) Substance-induced sleep disorder Current Visit: No Initial treatment plan: Seroquel 50mg poqd, 100mg po qhs
[2018-05-18] MEDS: hydrOXYzine PAMOATE 50 MG CAPSULE (FP) PO PRN ×2 (17:13→22:22)
[2018-05-18] MEDS ORDERED: QUEtiapine FUMARATE 100 MG TABLET (FP) PO SCH (22:00)
[2018-05-18] MEDS: IBUPROFEN 400 MG TABLET (FP) PO PRN (22:22)
[2018-05-18] MEDS: QUEtiapine FUMARATE 100 MG TABLET (FP) PO SCH (22:22)
[2018-05-18] MEDS: THIAMINE HCL 100 MG TABLET (FP) PO SCH (22:22)
[2018-05-19] MEDS: hydrOXYzine PAMOATE 50 MG CAPSULE (FP) PO PRN ×3 (06:02→22:46)
[2018-05-19] MEDS ORDERED: METHADONE HCL 5 MG TABLET (FOR DETOX USE ONLY) PO ONE (10:00)
[2018-05-19] MEDS: POTASSIUM CHLORIDE TABS 20 MEQ TABLET.ER (FP) PO SCH (10:12)
[2018-05-19] MEDS: PRENATAL VITAMINS W/ FOLIC ACID TABLET (FP) PO SCH (10:12)
[2018-05-19] MEDS: QUEtiapine FUMARATE 50 MG TABLET PO SCH (10:12)
[2018-05-19] MEDS: PANTOPRAZOLE 40 MG TABLET (FP) PO SCH (10:13)
[2018-05-19] MEDS: SUCRALFATE 1 GM TABLET (FP) PO SCH ×2 (10:13→22:44)
[2018-05-19] MEDS: NICOTINE 21 MG/24 HOURS TOPICAL PATCH TD SCH (10:13)
[2018-05-19] MEDS: diazePAM 5 MG TABLET PO PRN (10:13)
--- NOTE | 2018-05-19 11:32 | PN ---
BHS Progress Note (SOAP) Subjective: feeling better little sweats anxiety Objective: 05/19/18 11:32 Vital Signs Temperature 98.2 F 05/19/18 09:37 Pulse Rate 89 05/19/18 09:37 Respiratory Rate 16 05/19/18 09:37 Blood Pressure 96/65 05/19/18 09:37 O2 Sat by Pulse Oximetry (%) aaox3 ambulating no acute distress Assessment: 05/19/18 11:32 mild withdrawal sx Plan: continue detox increase fluids
[2018-05-19] MEDS: QUEtiapine FUMARATE 100 MG TABLET (FP) PO SCH (22:44)
[2018-05-19] MEDS: THIAMINE HCL 100 MG TABLET (FP) PO SCH (22:44)
[2018-05-19] MEDS: MELATONIN 5 MG TABLETS PO PRN (22:45)
[2018-05-20] MEDS: hydrOXYzine PAMOATE 50 MG CAPSULE (FP) PO PRN ×2 (06:18→10:10)
[2018-05-20 09:38] VITALS: BP 99/59; PULSE 78; TEMP 98.1
[2018-05-20] MEDS ORDERED: METHADONE HCL 10 MG TABLET (FOR DETOX USE ONLY) PO ONE (10:00)
[2018-05-20] MEDS: POTASSIUM CHLORIDE TABS 20 MEQ TABLET.ER (FP) PO SCH (10:06)
[2018-05-20] MEDS: PRENATAL VITAMINS W/ FOLIC ACID TABLET (FP) PO SCH (10:06)
[2018-05-20] MEDS: PANTOPRAZOLE 40 MG TABLET (FP) PO SCH (10:06)
[2018-05-20] MEDS: QUEtiapine FUMARATE 50 MG TABLET PO SCH (10:06)
[2018-05-20] MEDS: SUCRALFATE 1 GM TABLET (FP) PO SCH (10:07)
[2018-05-20] MEDS: NICOTINE 21 MG/24 HOURS TOPICAL PATCH TD SCH (10:09)
--- NOTE | 2018-05-20 12:06 | DS ---
[facility] Detox Discharge Summary Admission Date: 05/16/18 Discharge Date: 05/20/18 - History Present History: Alcohol Dependence, Cannabis Dependence, Opioid Dependence Pertinent Past History: Gastritis, asthma and anemia - Physical Exam Results Vital Signs: Vital Signs Temperature 98.1 F 05/20/18 09:37 Pulse Rate 78 05/20/18 09:37 Respiratory Rate 18 05/20/18 09:37 Blood Pressure 99/59 L 05/20/18 09:37 O2 Sat by Pulse Oximetry (%) Pertinent Admission Physical Exam Findings: Withdrawal sx Laboratory Last Values WBC 6.7 K/mm3 (4.0-10.0) 05/17/18 07:00 RBC 4.00 M/mm3 (3.60-5.2) 05/17/18 07:00 Hgb 13.3 GM/dL (10.7-15.3) 05/17/18 07:00 Hct 40.0 % (32.4-45.2) 05/17/18 07:00 MCV 100.0 fl (80-96) H 05/17/18 07:00 MCH 33.3 pg (25.7-33.7) 05/17/18 07:00 MCHC 33.3 g/dl (32.0-36.0) 05/17/18 07:00 RDW 12.9 % (11.6-15.6) 05/17/18 07:00 Plt Count 264 K/MM3 (134-434) D 05/17/18 07:00 MPV 7.2 fl (7.5-11.1) L 05/17/18 07:00 Sodium 141 mmol/L (136-145) 05/17/18 07:00 Potassium 3.4 mmol/L (3.5-5.1) L 05/17/18 07:00 Chloride 102 mmol/L (98-107) 05/17/18 07:00 Carbon Dioxide 29 mmol/L (21-32) 05/17/18 07:00 Anion Gap 10 MMOL/L (8-16) 05/17/18 07:00 BUN 19 mg/dL (7-18) H 05/17/18 07:00 Creatinine 0.6 mg/dL (0.55-1.3) 05/17/18 07:00 Creat Clearance w eGFR > 60 (>60) 05/17/18 07:00 Random Glucose 82 mg/dL (74-106) 05/17/18 07:00 Calcium 8.7 mg/dL (8.5-10.1) 05/17/18 07:00 Total Bilirubin 0.9 mg/dL (0.2-1) 05/17/18 07:00 AST 7 U/L (15-37) L 05/17/18 07:00 ALT 15 U/L (13-61) 05/17/18 07:00 Alkaline Phosphatase 46 U/L (45-117) 05/17/18 07:00 Total Protein 6.5 g/dl (6.4-8.2) 05/17/18 07:00 Albumin 4.0 g/dl (3.4-5.0) 05/17/18 07:00 Urine Color [place]net[place] 05/16/18 16:56 Urine Appearance Cloudy 05/16/18 16:56 Urine pH 5.0 (5.0-8.0) 05/16/18 16:56 Ur Specific [place] 1.033 (1.010-1.035) 05/16/18 16:56 Urine Protein 1+ (NEGATIVE) H 05/16/18 16:56 Urine Glucose (UA) Negative (NEGATIVE) 05/16/18 16:56 Urine Ketones 1+ (NEGATIVE) H 05/16/18 16:56 Urine Blood Negative (NEGATIVE) 05/16/18 16:56 Urine Nitrite Negative (NEGATIVE) 05/16/18 16:56 Urine Bilirubin Negative (<2.0 mg/dL) 05/16/18 16:56 Urine Urobilinogen 2.0 mg/dL (0.2-1.0) H 05/16/18 16:56 Ur Leukocyte Esterase Negative (NEGATIVE) 05/16/18 16:56 Urine WBC (Auto) 7 /hpf (3-5) 05/16/18 16:56 Urine RBC (Auto) 2 /hpf (0-3) 05/16/18 16:56 Ur Epithelial Cells Many /HPF (FEW) 05/16/18 16:56 Urine Bacteria Rare /hpf (NONE SEEN) 05/16/18 16:56 Urine Mucus Many 05/16/18 16:56 RPR Titer Nonreactive (NONREACTIVE) 05/17/18 07:00 Labs noted - Treatment Hospital Course: Detox Protocol Followed (Patient given early discharge as per her request. She has no signs of distress, withdrawal sx resolved) - Medication Discharge Medications: Ambulatory Orders Pantoprazole Sodium [Protonix -] 40 mg PO DAILY #30 tablet.ec 03/13/18 Sucralfate [Carafate -] 1 gm PO QID #56 tablet 03/13/18 Metoclopramide HCl [Reglan] 10 mg PO BID PRN #10 tablet 04/19/18 Dexlansoprazole [Dexilant] 60 mg PO BID 05/16/18 Ondansetron [Zofran -] 8 mg PO BID 05/16/18 Ranitidine [Zantac -] 150 mg PO HS 05/16/18 Quetiapine Fumarate [Seroquel -] 50 mg PO HS #90 tablet 05/17/18 Quetiapine Fumarate [Seroquel -] 50 mg PO DAILY #30 tablet 05/18/18 Quetiapine Fumarate [Seroquel] 100 mg PO HS #30 tablet 05/18/18 - Diagnosis (1) Opioid dependence with withdrawal Current Visit: Yes Status: Acute (2) Anxiety and depression Current Visit: Yes Status: Chronic (3) Cannabis dependence Current Visit: Yes Status: Chronic (4) Insomnia Current Visit: Yes Status: Chronic Qualifiers: Insomnia type: primary Qualified Code(s): F51.01 - Primary insomnia (5) Alcohol dependence with uncomplicated withdrawal Current Visit: No Status: Acute (6) Asthma Current Visit: No Status: Chronic Qualifiers: Asthma severity: mild Asthma persistence: intermittent (7) Substance-induced sleep disorder Current Visit: No Status: Chronic - AMA Did Patient Leave Against Medical Advice: No
[2018-05-21] MEDS ORDERED: METHADONE HCL 5 MG TABLET (FOR DETOX USE ONLY) PO ONE (06:00)
== END 2018-05-20 12:10 | disposition home or self-care (01) | DRG 773 ==
LOC: YASAS 11:30 → Y6N 15:14
PROC: HZ2ZZZZ Detoxification Services for Substance Abuse Treatment (ICD-10-PCS; principal; 2018-05-16)
DX: F11.23 Opioid dependence with withdrawal (principal); F10.230 Alcohol dependence with withdrawal, uncomplicated; F12.20 Cannabis dependence, uncomplicated; F51.05 Insomnia due to other mental disorder; F19.24 Other psychoactive substance dependence with psychoactive substance-induced mood disorder; F41.8 Other specified anxiety disorders; F32.9 Major depressive disorder, single episode, unspecified; J45.20 Mild intermittent asthma, uncomplicated; D64.9 Anemia, unspecified; K29.70 Gastritis, unspecified, without bleeding; R45.89 Other symptoms and signs involving emotional state
CPT/HCPCS: 36415; 80053; 81003; 81015; 85027; 86593

== ENCOUNTER 2018-12-27 10:27 | Inpatient (IN) | payer OTHER ==
[2018-12-27 11:05] VITALS: BMI 23.2
--- NOTE | 2018-12-27 12:08 | HP ---
COWS - Scale Resting Pulse: 0= [place] 80 or Below Sweatin= Chills/Flushing Restless Observation: 1= Difficult to Sit Still Pupil Size: 1= Pupils >than Normal Bone or Joint Aches: 2= Severe Diffuse Aches Runny Nose/ Eye Tearin= Nasal Congestion GI Upset > 30mins: 2= Nausea/Diarrhea Tremor Observation: 2= Slight Tremor Visible Yawning Observation: 1= 1-2x During Session Anxiety or Irritability: 2=Irritable/Anxious Goose Flesh Skin: 0=Smooth Skin COWS Score: 13 CIWA Score - Admission Criteria [facility]ASAS Guidelines: Admission for Medically Managed Detox: Requires at least one of the followin. CIWA greater than 12 2. Seizures within the past 24 hours 3. Delirium tremens within the past 24 hours 4. Hallucinations within the past 24 hours 5. Acute intervention needed for co occurring medical disorder 6. Acute intervention needed for co occurring psychiatric disorder 7. Severe withdrawal that cannot be handled at a lower level of care (continued vomiting, continued diarrhea, abnormal vital signs) requiring intravenous medication and/or fluids 8. Admission ROS S - HPI Chief Complaint: i need help to stop using percocet and marijuana Allergies/Adverse Reactions: Allergies Allergy/AdvReac Type Severity Reaction Status Date / Time No Known Allergies Allergy Verified 12/27/18 10:56 History of Present Illness: this 23 years old female with percocet and marijuana dependence,seeking deto, withdrawal symptom had previous admission in the past last detox [facility] 05/16/18 to 05/20/18 plan to go to rehab after detox abrasion of left leg 2 weeks ago Exam Limitations: No Limitations - Ebola screening Have you traveled outside of the country in the last 21 days: No (N) Have you had contact with anyone from an Ebola affected area: No Do you have a fever: No - Review of Systems Constitutional: Chills, Loss of Appetite, Malaise, Night Sweats, Changes in sleep, Weakness EENT: reports: Tearing, Nose Congestion Respiratory: reports: No Symptoms reported Cardiac: reports: No Symptoms Reported GI: reports: Nausea, Poor Appetite, Abdominal cramping : reports: No Symptoms Reported Musculoskeletal: reports: Back Pain, Muscle Pain Integumentary: reports: Dryness Neuro: reports: Headache, Tremors Endocrine: reports: No Symptoms Reported Hematology: reports: No Symptoms Reported Psychiatric: reports: No Sypmtoms Reported Other Systems: Reviewed and Negative Patient History - Patient Medical History Hx Anemia: No Hx Asthma: No Hx Chronic Obstructive Pulmonary Disease (COPD): No Hx Cancer: No Hx Cardiac Disorders: No Hx Congestive Heart Failure: No Hx Hypertension: No Hx Hypercholesterolemia: No Hx Pacemaker: No HX Cerebrovascular Accident: No Hx Seizures: No Hx Dementia: No Hx Diabetes: No Hx Gastrointestinal Disorders: No Hx Liver Disease: No Hx Genitourinary Disorders: No Hx Sexually Transmitted Disorders: No Hx Renal Disease (ESRD): No Hx Thyroid Disease: No Hx Human Immunodeficiency Virus (HIV): No (negative 2017 ) Hx Hepatitis C: No Hx Depression: Yes (no med) Hx Suicide Attempt: No Hx Bipolar Disorder: No Hx Schizophrenia: No Other Medical History: no suicidal,no homicidal - Patient Surgical History Past Surgical History: No Hx Neurologic Surgery: No Hx Cataract Extraction: No Hx Cardiac Surgery: No Hx Lung Surgery: No Hx Breast Surgery: No Hx Breast Biopsy: No Hx Abdominal Surgery: Yes (liposuction in 02/2016) Hx Appendectomy: No Hx Cholecystectomy: No Hx Genitourinary Surgery: No Hx Section: No Hx Orthopedic Surgery: No Other Surgical History: LIPOSUCTION IN 02/16. Anesthesia Reaction: No - PPD History Previous Implant?: Yes Documented Results: Negative w/proof Implanted On Prior R Admission?: Yes Date: 11/20/17 Results: 0mm PPD to be Administered?: No - Reproductive History Patient is a Female of Child Bearing Age (11 -55 yrs old): Yes Last Menstrual Period: 12/13/18 Patient : No - Smoking Cessation Smoking history: Never smoked Cigars Per Day: 0 Hx Chewing Tobacco Use: No - Substance & Tx. History Hx Alcohol Use: No Hx Substance Use: Yes Substance Use Type: Marijuana, Opiates Hx Substance Use Treatment: Yes ([facility] 05/16/18 to 05/20/18) - Substances abused Other Other (specify): percocet Substance route: Oral Frequency: Daily Amount used: 10mg/325mh tab ( 15-20) Age of first use: 13 Date of last use: 12/26/18 Marijuana/Hashish Substance route: Smoking Frequency: Daily Amount used: $100 Age of first use: 13 Date of last use: 12/26/18 Family Disease History - Family Disease History Family Disease History: Other: Sister (opiate dependence) Admission Physical Exam [facility] - Vital Signs Vital Signs: Vital Signs - 24 hr 12/27/18 11:00 Temperature 98.7 F Pulse Rate 68 Respiratory 17 Rate Blood Pressure 87/59 L - Physical General Appearance: Yes: Moderate Distress, Tremorous, Irritable, Sweating, Anxious HEENTM: Yes: Normal ENT Inspection, GILA, Pharynx Normal Respiratory: Yes: Lungs Clear, Normal Breath Sounds, No Respiratory Distress Neck: Yes: Within Normal Limits, Supple, Trachea in good position Breast: Yes: Breast Exam Deferred Cardiology: Yes: Within Normal Limits, Regular Rhythm, Regular Rate, S1, S2 Abdominal: Yes: Within Normal Limits, Normal Bowel Sounds, Non Tender, Soft Genitourinary: Yes: Within Normal Limits Back: Yes: Muscle Spasm Musculoskeletal: Yes: Back pain, Muscle Pain Extremities: Yes: Within Normal Limits, Normal Range of Motion, Tremors 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: pai gow dealer II-XII NML intact, Alert, Motor Strength 5/5 Integumentary: Yes: Dry Lymphatic: Yes: Within Normal Limits - Diagnostic (1) Opioid dependence with withdrawal Current Visit: No Status: Acute (2) Cannabis dependence Current Visit: No Status: Chronic Cleared for Admission [facility] - Detox or Rehab [facility] Level of Care: Medically Managed Detox Regimen/Protocol: Methadone Breathalyzer - Breathalyzer Breathalyzer: 0 Urine Drug Screen - Test Device Lot number: [id number] Expiration date: 08/31/20 - Control Is test valid?: Yes - Results Drug screen NEGATIVE: No Urine drug screen results: THC-Marijuana, OXY-Oxycodone Inpatient Rehab Admission - Rehab Decision to Admit Inpatient rehab admission?: No
[2018-12-27] MEDS ORDERED: cloNIDine HCL 0.1 MG TABLET PO PRN (12:17)
[2018-12-27] MEDS ORDERED: MAG HYDROX/AL HYDROX/SIMETH 30 ML UNIT-DOSE CUP PO PRN (12:24)
[2018-12-27] MEDS ORDERED: ACETAMINOPHEN 325 MG TABLET (FP) PO PRN ×2 (12:24)
[2018-12-27] MEDS ORDERED: BISMUTH SUBSALICYLATE 524 MG/30 ML UD PO PRN (12:24)
[2018-12-27] MEDS ORDERED: MAGNESIUM CITRATE 300 ML BOTTLE PO PRN (12:24)
[2018-12-27] MEDS ORDERED: MENTHOL/PHENOL 1 EACH UD MM PRN (12:24)
[2018-12-27] MEDS ORDERED: MAGNESIUM HYDROX 2400MG/30ML ORAL SUSPENSION 30 ML CUP PO PRN (12:24)
[2018-12-27] MEDS ORDERED: METHADONE HCL 10 MG TABLET (FOR DETOX USE ONLY) PO ONE ×2 (13:00→23:00)
[2018-12-27] MEDS: diazePAM 5 MG TABLET PO PRN (14:07)
[2018-12-27 17:01] LABS: ALBUMIN 3.6 g/dl (3.4-5.0); BILIRUBIN,TOTAL 0.4 mg/dL (0.2-1); BLOOD UREA NITROGEN 20.6 mg/dL (7-18); CALCIUM 8.6 mg/dL (8.5-10.1); CREATININE 0.7 mg/dL (0.55-1.3); TOT PROT 6.2 g/dl (6.4-8.2)
[2018-12-27 18:14] LABS: HEMATOCRIT 39.3 % (32.4-45.2); HEMOGLOBIN 13.1 GM/dL (10.7-15.3); MCH 34.6 pg (25.7-33.7); MCHC 33.2 g/dl (32.0-36.0); MEAN CELL VOLUME 104.2 fl (80-96); MEAN PLT VOLUME 8.1 fl (7.5-11.1); PLATELET COUNT 216 K/MM3 (134-434); RBC 3.77 M/mm3 (3.60-5.2); RDW 12.9 % (11.6-15.6)
[2018-12-27 20:49] LABS: URINE APPEARANCE CLEAR; URINE BILIRUBIN NEGATIVE (NEGATIVE); URINE COLOR YELLOW; URINE GLUCOSE (UA) NEGATIVE (NEGATIVE); URINE KETONE NEGATIVE (NEGATIVE); URINE LEUK ESTERASE NEGATIVE (NEGATIVE); URINE NITRITE NEGATIVE (NEGATIVE); URINE PROTEIN NEGATIVE (NEGATIVE); URINE UROBILINOGEN 0.2 mg/dL (0.2-1.0)
[2018-12-27] MEDS: THIAMINE HCL 100 MG TABLET (FP) PO SCH (22:34)
[2018-12-27] MEDS: MELATONIN 5 MG TABLETS PO PRN (22:37)
[2018-12-28] MEDS ORDERED: TRIMETHOBENZAMIDE HCL 200MG/2ML INJ IM ONE (00:22)
--- NOTE | 2018-12-28 01:27 | PN ---
S Progress Note Note: Patient vomited x 1 Vital Signs Temperature 98.1 F 12/27/18 22:08 Pulse Rate 67 12/27/18 22:08 Respiratory Rate 18 12/27/18 22:08 Blood Pressure 103/71 12/27/18 22:08 O2 Sat by Pulse Oximetry (%) Action: Tigan 200mg intramuscular ordered
[2018-12-28] MEDS: IBUPROFEN 400 MG TABLET (FP) PO PRN (06:06)
[2018-12-28] MEDS: diazePAM 5 MG TABLET PO PRN ×3 (06:31→22:45)
[2018-12-28] MEDS ORDERED: METHADONE HCL 10 MG TABLET (FOR DETOX USE ONLY) PO ONE (10:00)
[2018-12-28] MEDS: PRENATAL VITAMINS W/ FOLIC ACID TABLET (FP) PO SCH (10:20)
--- NOTE | 2018-12-28 16:19 | PN ---
BHS COWS - Scale Resting Pulse: 0= [place] 80 or Below Sweatin= Chills/Flushing Restless Observation: 1= Difficult to Sit Still Pupil Size: 0= Normal to Room Light Bone or Joint Aches: 2= Severe Diffuse Aches Runny Nose/ Eye Tearin= None GI Upset > 30mins: 0= None Tremor Observation of Outstretched Hands: 0= None Yawning Observation: 1= 1-2x During Session Anxiety or Irritability: 2=Irritable/Anxious Goose Flesh Skin: 3=Piloerection COWS Score: 10 BHS Progress Note (SOAP) Subjective: body Aches, Anxious, Poor Appetite. Patient Vomited X 1 Yesterday, Tigan IM X 1 dose ordered. Patient Denies Nausea / Vomiting today. Objective: PATIENT A & O X 3, OBSERVED AMBULATING ON UNIT UNASSISTED. IN NO ACUTE DISTRESS. 12/28/18 16:18 Vital Signs Temperature 98.3 F 12/28/18 13:10 Pulse Rate 75 12/28/18 13:10 Respiratory Rate 18 12/28/18 13:10 Blood Pressure 107/74 12/28/18 13:10 O2 Sat by Pulse Oximetry (%) Laboratory Tests 12/27/18 12/27/18 12/27/18 11:37 12:23 12:23 WBC 4.0 RBC 3.77 Hgb 13.1 Hct 39.3 MCV 104.2 H MCH 34.6 H MCHC 33.2 RDW 12.9 Plt Count 216 MPV 8.1 D Sodium 142 Potassium 4.0 Chloride 107 Carbon Dioxide 29 Anion Gap 7 L BUN 20.6 H Creatinine 0.7 Est GFR (CKD-EPI)AfAm 141.54 Est GFR (CKD-EPI)NonAf 122.12 Random Glucose 82 Calcium 8.6 Total Bilirubin 0.4 AST 10 L ALT 13 Alkaline Phosphatase 43 L Total Protein 6.2 L Albumin 3.6 Urine Color Urine Appearance Urine pH Ur Specific [place] Urine Protein Urine Glucose (UA) Urine Ketones Urine Blood Urine Nitrite Urine Bilirubin Urine Urobilinogen Ur Leukocyte Esterase U Pathogenic Cast Auto POC Urine HCG, Qual Negative RPR Titer HIV 1&2 Antibody Screen HIV P24 Antigen 12/27/18 12/27/18 12/27/18 12:23 12:23 14:30 WBC RBC Hgb Hct MCV MCH MCHC RDW Plt Count MPV Sodium Potassium Chloride Carbon Dioxide Anion Gap BUN Creatinine Est GFR (CKD-EPI)AfAm Est GFR (CKD-EPI)NonAf Random Glucose Calcium Total Bilirubin AST ALT Alkaline Phosphatase Total Protein Albumin Urine Color Yellow Urine Appearance Clear Urine pH 7.0 D Ur Specific [place] 1.032 Urine Protein Negative Urine Glucose (UA) Negative Urine Ketones Negative Urine Blood Negative Urine Nitrite Negative Urine Bilirubin Negative Urine Urobilinogen 0.2 Ur Leukocyte Esterase Negative U Pathogenic Cast Auto No Result Required. POC Urine HCG, Qual RPR Titer Nonreactive HIV 1&2 Antibody Screen Negative HIV P24 Antigen Negative LABS NOTED. Assessment: 12/28/18 16:18 WITHDRAWAL SYMPTOMS. Plan: CONTINUE DETOX. INCREASE DAILY PO WATER INTAKE.
[2018-12-28] MEDS: THIAMINE HCL 100 MG TABLET (FP) PO SCH (22:44)
[2018-12-28] MEDS: METHOCARBAMOL 500 MG TABLET PO PRN (22:49)
[2018-12-28] MEDS: MELATONIN 5 MG TABLETS PO PRN (22:50)
[2018-12-29] MEDS ORDERED: METHADONE HCL 10 MG TABLET (FOR DETOX USE ONLY) PO ONE (10:00)
--- NOTE | 2018-12-29 10:08 | PN ---
BHS COWS - Scale Resting Pulse: 1= [place] [id number] Sweatin= Chills/Flushing Restless Observation: 1= Difficult to Sit Still Pupil Size: 0= Normal to Room Light Bone or Joint Aches: 1= Mild Discomfort Runny Nose/ Eye Tearin= None GI Upset > 30mins: 1= Stomach Cramp Tremor Observation of Outstretched Hands: 0= None Yawning Observation: 1= 1-2x During Session Anxiety or Irritability: 1=Feels Anxious/Irritable Goose Flesh Skin: 0=Smooth Skin COWS Score: 7 BHS Progress Note (SOAP) Subjective: c/o of fatigue, anorexia, chills, sweats Objective: 12/29/18 10:06 Vital Signs Temperature 98.6 F 12/29/18 09:25 Pulse Rate 88 12/29/18 09:25 Respiratory Rate 18 12/29/18 09:25 Blood Pressure 92/57 L 12/29/18 09:25 O2 Sat by Pulse Oximetry (%) Laboratory Last Values WBC 4.0 K/mm3 (4.0-10.0) 12/27/18 12:23 RBC 3.77 M/mm3 (3.60-5.2) 12/27/18 12:23 Hgb 13.1 GM/dL (10.7-15.3) 12/27/18 12:23 Hct 39.3 % (32.4-45.2) 12/27/18 12:23 MCV 104.2 fl (80-96) H 12/27/18 12:23 MCH 34.6 pg (25.7-33.7) H 12/27/18 12:23 MCHC 33.2 g/dl (32.0-36.0) 12/27/18 12:23 RDW 12.9 % (11.6-15.6) 12/27/18 12:23 Plt Count 216 K/MM3 (134-434) 12/27/18 12:23 MPV 8.1 fl (7.5-11.1) D 12/27/18 12:23 Sodium 142 mmol/L (136-145) 12/27/18 12:23 Potassium 4.0 mmol/L (3.5-5.1) 12/27/18 12:23 Chloride 107 mmol/L (98-107) 12/27/18 12:23 Carbon Dioxide 29 mmol/L (21-32) 12/27/18 12:23 Anion Gap 7 MMOL/L (8-16) L 12/27/18 12:23 BUN 20.6 mg/dL (7-18) H 12/27/18 12:23 Creatinine 0.7 mg/dL (0.55-1.3) 12/27/18 12:23 Est GFR (CKD-EPI)AfAm 141.54 12/27/18 12:23 Est GFR (CKD-EPI)NonAf 122.12 12/27/18 12:23 Random Glucose 82 mg/dL (74-106) 12/27/18 12:23 Calcium 8.6 mg/dL (8.5-10.1) 12/27/18 12:23 Total Bilirubin 0.4 mg/dL (0.2-1) 12/27/18 12:23 AST 10 U/L (15-37) L 12/27/18 12:23 ALT 13 U/L (13-61) 12/27/18 12:23 Alkaline Phosphatase 43 U/L (45-117) L 12/27/18 12:23 Total Protein 6.2 g/dl (6.4-8.2) L 12/27/18 12:23 Albumin 3.6 g/dl (3.4-5.0) 12/27/18 12:23 Urine Color Yellow 12/27/18 14:30 Urine Appearance Clear 12/27/18 14:30 Urine pH 7.0 (5.0-8.0) D 12/27/18 14:30 Ur Specific [place] 1.032 (1.010-1.035) 12/27/18 14:30 Urine Protein Negative (NEGATIVE) 12/27/18 14:30 Urine Glucose (UA) Negative (NEGATIVE) 12/27/18 14:30 Urine Ketones Negative (NEGATIVE) 12/27/18 14:30 Urine Blood Negative (NEGATIVE) 12/27/18 14:30 Urine Nitrite Negative (NEGATIVE) 12/27/18 14:30 Urine Bilirubin Negative (NEGATIVE) 12/27/18 14:30 Urine Urobilinogen 0.2 mg/dL (0.2-1.0) 12/27/18 14:30 Ur Leukocyte Esterase Negative (NEGATIVE) 12/27/18 14:30 U Pathogenic Cast Auto No Result Required. 12/27/18 14:30 POC Urine HCG, Qual Negative 12/27/18 11:37 RPR Titer Nonreactive (NONREACTIVE) 12/27/18 12:23 HIV 1&2 Antibody Screen Negative 12/27/18 12:23 HIV P24 Antigen Negative 12/27/18 12:23 labs reviewed Assessment: 12/29/18 10:06 Patient Aox3 no acute distress, full ROM ambulating in the unit withdrawal symptoms 12/29/18 10:07 Plan: increase PO fluids continue detox continue to monitor
[2018-12-29] MEDS: PRENATAL VITAMINS W/ FOLIC ACID TABLET (FP) PO SCH (10:17)
[2018-12-29] MEDS ORDERED: ONDANSETRON *ODT* 4 MG TABLET SL PRN (12:13)
[2018-12-29] MEDS: IBUPROFEN 400 MG TABLET (FP) PO PRN (16:37)
[2018-12-29] MEDS: METHOCARBAMOL 500 MG TABLET PO PRN (22:44)
[2018-12-29] MEDS: THIAMINE HCL 100 MG TABLET (FP) PO SCH (22:44)
[2018-12-29] MEDS: MELATONIN 5 MG TABLETS PO PRN (22:45)
[2018-12-29] MEDS: diazePAM 5 MG TABLET PO PRN (22:45)
[2018-12-30] MEDS ORDERED: METHADONE HCL 10 MG TABLET (FOR DETOX USE ONLY) ONE (08:34)
[2018-12-30] MEDS ORDERED: METHADONE HCL 5 MG TABLET (FOR DETOX USE ONLY) ONE (08:34)
[2018-12-30] MEDS ORDERED: METHADONE HCL 10 MG TABLET (FOR DETOX USE ONLY) PO ONE (10:00)
[2018-12-30] MEDS ORDERED: METHADONE (DETOX) 10 MG, METHADONE (DETOX) 5 MG PO ONE (10:00)
[2018-12-30] MEDS: PRENATAL VITAMINS W/ FOLIC ACID TABLET (FP) PO SCH (12:36)
[2018-12-30] MEDS: hydrOXYzine PAMOATE 25 MG CAPSULE (FP) PO PRN ×2 (15:39→23:00)
--- NOTE | 2018-12-30 17:01 | PN ---
BHS COWS - Scale Resting Pulse: 0= [place] 80 or Below Sweatin= Chills/Flushing Restless Observation: 0= Sits Still Pupil Size: 0= Normal to Room Light Bone or Joint Aches: 2= Severe Diffuse Aches Runny Nose/ Eye Tearin= None GI Upset > 30mins: 0= None Tremor Observation of Outstretched Hands: 0= None Yawning Observation: 1= 1-2x During Session Anxiety or Irritability: 2=Irritable/Anxious Goose Flesh Skin: 3=Piloerection COWS Score: 9 BHS Progress Note (SOAP) Subjective: Body Aches, Chills, Sweating. Objective: PATIENT A & O X 3, OBSERVED AMBULATING ON UNIT UNASSISTED. IN NO ACUTE DISTRESS. 12/30/18 17:00 Vital Signs Temperature 98.2 F 12/30/18 13:26 Pulse Rate 77 12/30/18 13:26 Respiratory Rate 18 12/30/18 13:26 Blood Pressure 101/68 12/30/18 13:26 O2 Sat by Pulse Oximetry (%) Laboratory Tests 12/27/18 12/27/18 12/27/18 11:37 12:23 12:23 WBC 4.0 RBC 3.77 Hgb 13.1 Hct 39.3 MCV 104.2 H MCH 34.6 H MCHC 33.2 RDW 12.9 Plt Count 216 MPV 8.1 D Sodium 142 Potassium 4.0 Chloride 107 Carbon Dioxide 29 Anion Gap 7 L BUN 20.6 H Creatinine 0.7 Est GFR (CKD-EPI)AfAm 141.54 Est GFR (CKD-EPI)NonAf 122.12 Random Glucose 82 Calcium 8.6 Total Bilirubin 0.4 AST 10 L ALT 13 Alkaline Phosphatase 43 L Total Protein 6.2 L Albumin 3.6 Urine Color Urine Appearance Urine pH Ur Specific [place] Urine Protein Urine Glucose (UA) Urine Ketones Urine Blood Urine Nitrite Urine Bilirubin Urine Urobilinogen Ur Leukocyte Esterase U Pathogenic Cast Auto POC Urine HCG, Qual Negative RPR Titer HIV 1&2 Antibody Screen HIV P24 Antigen 12/27/18 12/27/18 12/27/18 12:23 12:23 14:30 WBC RBC Hgb Hct MCV MCH MCHC RDW Plt Count MPV Sodium Potassium Chloride Carbon Dioxide Anion Gap BUN Creatinine Est GFR (CKD-EPI)AfAm Est GFR (CKD-EPI)NonAf Random Glucose Calcium Total Bilirubin AST ALT Alkaline Phosphatase Total Protein Albumin Urine Color Yellow Urine Appearance Clear Urine pH 7.0 D Ur Specific [place] 1.032 Urine Protein Negative Urine Glucose (UA) Negative Urine Ketones Negative Urine Blood Negative Urine Nitrite Negative Urine Bilirubin Negative Urine Urobilinogen 0.2 Ur Leukocyte Esterase Negative U Pathogenic Cast Auto No Result Required. POC Urine HCG, Qual RPR Titer Nonreactive HIV 1&2 Antibody Screen Negative HIV P24 Antigen Negative LABS NOTED. Assessment: 12/30/18 17:00 WITHDRAWAL SYMPTOMS. Plan: CONTINUE DETOX. INCREASE DAILY PO WATER INTAKE.
[2018-12-30] MEDS: THIAMINE HCL 100 MG TABLET (FP) PO SCH (22:59)
[2018-12-30] MEDS: MELATONIN 5 MG TABLETS PO PRN (22:59)
[2018-12-30] MEDS: METHOCARBAMOL 500 MG TABLET PO PRN (23:00)
[2018-12-31] MEDS ORDERED: METHADONE HCL 5 MG TABLET (FOR DETOX USE ONLY) PO ONE (06:00)
[2018-12-31 09:41] VITALS: BP 104/71; PULSE 81; TEMP 97.9
[2018-12-31] MEDS ORDERED: METHADONE HCL 10 MG TABLET (FOR DETOX USE ONLY) PO ONE (10:00)
[2018-12-31] MEDS: PRENATAL VITAMINS W/ FOLIC ACID TABLET (FP) PO SCH (10:17)
[2018-12-31] MEDS: hydrOXYzine PAMOATE 25 MG CAPSULE (FP) PO PRN (10:19)
--- NOTE | 2018-12-31 15:30 | DS ---
[facility] Detox Discharge Summary Admission Date: 12/27/18 Discharge Date: 12/31/18 - History Present History: Cannabis Dependence, Opioid Dependence Additional Comments: PT DECLINED TO COMPLETE DETOX AND WANTED TO LEAVE TODAY INSTEAD. PT STATED "MY FAMILY HAS BEEN DOWNSTAIRS SINCE 9 O'CLOCK. I HAVE TO GO". PT IS ALERT O X 3. IN NAD. REPORTS SHE HAS PRIMARY CARE AT [facility] [address] [place], [place]. Pertinent Past History: PLEASE SEE DX BELOW - Physical Exam Results Vital Signs: Vital Signs Temperature 97.9 F 12/31/18 09:40 Pulse Rate 81 12/31/18 09:40 Respiratory Rate 18 12/31/18 09:40 Blood Pressure 104/71 12/31/18 09:40 O2 Sat by Pulse Oximetry (%) Pertinent Admission Physical Exam Findings: WITHDRAWAL SX - Treatment Hospital Course: Discharged Condition Good - Medication Discharge Medications: Ambulatory Orders NK [No Known Home Medication] 12/27/18 - Diagnosis (1) Nicotine dependence Status: Chronic Qualifiers: Nicotine product type: cigarettes Substance use status: uncomplicated Qualified Code(s): F17.210 - Nicotine dependence, cigarettes, uncomplicated (2) Opioid dependence with withdrawal Status: Acute (3) Cannabis dependence Status: Acute - AMA Did Patient Leave Against Medical Advice: Yes (AMA)
[2019-01-01] MEDS ORDERED: METHADONE HCL 5 MG TABLET (FOR DETOX USE ONLY) PO ONE (06:00)
== END 2018-12-31 11:08 | disposition left against medical advice (07) | DRG 770 ==
LOC: YASAS 10:27 → Y3N 12:35
PROVIDERS: ADMIT Surgery; ATTEND Surgery
PROC: HZ2ZZZZ Detoxification Services for Substance Abuse Treatment (ICD-10-PCS; principal; 2018-12-27)
DX: F11.23 Opioid dependence with withdrawal (principal); F12.20 Cannabis dependence, uncomplicated; F17.210 Nicotine dependence, cigarettes, uncomplicated
CPT/HCPCS: 36415; 80053; 81003; 81025; 85027; 86593; 87389; Q0162

== ENCOUNTER 2019-01-22 14:15 | Emergency (ER) | payer OTHER ==
[2019-01-22] MEDS ORDERED: SODIUM CHLORIDE 1,000 ML IV STA (14:19)
[2019-01-22] MEDS ORDERED: ONDANSETRON 4 MG/2 ML VIAL IVPUSH ONE (14:19)
--- NOTE | 2019-01-22 14:19 | PDOC ---
Rapid Medical Evaluation Chief Complaint: Nausea/Vomiting Time Seen by Provider: 01/22/19 14:16 Medical Evaluation: Allergies Allergy/AdvReac Type Severity Reaction Status Date / Time No Known Allergies Allergy Verified 12/27/18 10:56 01/22/19 14:16 I have performed a brief in-person evaluation of this patient. The patient presents with a chief complaint of: vomiting in early Pertinent physical exam findings: NBNB vomit in triage. Inducing vomiting during exam I have ordered the following: urine, labs, IVF, Zofran The patient will proceed to the ED for further evaluation. Discharge Disposition - Diagnosis Vomiting affecting - Referrals - Patient Instructions - Post Discharge Activity
[2019-01-22 14:20] VITALS: BMI 23.4
[2019-01-22] MEDS ORDERED: ONDANSETRON 4 MG/2 ML VIAL ONE (14:56)
--- NOTE | 2019-01-22 15:02 | PDOC ---
History of Present Illness - General Chief Complaint: Nausea/Vomiting Stated Complaint: FAINTING/VOMITING Time Seen by Provider: 01/22/19 14:16 History Source: Patient, Sibling Exam Limitations: No Limitations - History of Present Illness Initial Comments: 01/22/19 15:34 23 yo A2 F who is 4 weeks presents with 1 day of constant, severe, nonradiating abdominal pain and cramping with mild vaginal bleeding since she took 2 vaginal route pills today at 9am. Pills not taken under medical supervision. Concurrently, the patient has had 2 days of PO intolerance with nbnb vomiting (~25x) and nonbloody diarrhea (5+). Patient fainted 3x today, caught by boyfriend, no seizures, no head strike. Patient has had two previous pregnancies terminated surgically. Surgical hx includes 2 surgical abortions and liposuction. Pt uses percocet 5-10x daily and marijuana 5-10x daily with last use 2 days ago. Endorses chills. Denies headache, changes in hearing/vision, lightheadedness, dizziness, neck pain, chest pain, SOB. (+) sick contact - twin sister PMH: multisubstance abuse NKDA PCP: none Past History - Past Medical History Allergies/Adverse Reactions: Allergies Allergy/AdvReac Type Severity Reaction Status Date / Time No Known Allergies Allergy Verified 01/22/19 14:20 Home Medications: Ambulatory Orders Sulfamethoxazole/Trimethoprim [Bactrim Ds -] 1 tab PO BID #14 tablet 01/22/19 Anemia: No Asthma: No Cancer: No Cardiac Disorders: No CVA: No COPD: No CHF: No DVT: No Dementia: No Diabetes: No GI Disorders: No Disorders: No HTN: No Hypercholesterolemia: No Kidney Stones: No Liver Disease: No Seizures: No Thyroid Disease: No - Surgical History Abdominal Surgery: Yes (liposuction in 02/2016) Appendectomy: No Cardiac Surgery: No Cholecystectomy: No Lung Surgery: No Neurologic Surgery: No Orthopedic Surgery: No - Reproductive History PID: No - Immunization History Immunization Up to Date: No - Suicide/Smoking/Psychosocial Hx Smoking History: Current some day smoker Have you smoked in the past 12 months: Yes Number of Cigarettes Smoked Daily: 20 If you are a former smoker, when did you quit?: 2013 Cigars Per Day: 0 Information on smoking cessation initiated: No 'Breaking Loose' booklet given: 05/16/18 Hx Alcohol Use: No Drug/Substance Use Hx: Yes Substance Use Type: Marijuana, Opiates Hx Substance Use Treatment: Yes ([facility] 05/16/18 to 05/20/18) Review of Systems - Review of Systems Able to Perform ROS?: Yes Is the patient limited Croatian proficient: No Constitutional: Yes: Chills. No: Fever HEENTM: No: Symptoms Reported, Eye Pain, Blurred Vision, Tearing, Recent change in vision, Double Vision, Cataracts, Ear Pain, Ocular Prothesis, Ear Discharge, Nose Pain, Nose Congestion, Tinnitus, Nose Bleeding, Hearing Loss, Throat Pain, Throat Swelling, Mouth Pain, Dental Problems, Difficulty Swallowing, Mouth Swelling, Other Respiratory: No: Symptoms reported, See HPI, Cough, Orthopnea, Shortness of Breath, SOB with Exertion, SOB at Rest, Stridor, Wheezing, Productive cough, Hemoptysis, Other Cardiac (ROS): No: Symptoms Reported, See HPI, Chest Pain, Edema, Irregular Heart Rate, Lightheadedness, Palpitations, Syncope, Chest Tightness, Other ABD/GI: Yes: Diarrhea, Nausea, Poor Appetite, Poor Fluid Intake, Vomiting Neurological: No: Headache, Numbness, Seizure, Tingling, Weakness, Dizziness *Physical Exam - Vital Signs Last Vital Signs Temp Pulse Resp BP Pulse Ox 97.9 F 68 118 H 104/64 99 01/22/19 14:18 01/22/19 14:18 01/22/19 14:18 01/22/19 14:18 01/22/19 14:18 - Physical Exam Comments: 01/22/19 16:16 GEN: In bed, moderate distress. HEENT: NC/AT, EOMI, PERRLA.CN II-XII intact CV: S1/S2, RRR, tachycardic, no m/r/g LUNG: CTAB, no wheezes, crackles, rales, rhonchi. GI: soft, nd, diffusely tender. EXTREMITIES: 2+ distal pulses. No LE edema. No obvious deformities of all extremities. Moving all limbs. PELVIC: No discharge, dark blood pooling in the vaginal vault obstructing view; Cervical Os not visualized. 01/22/19 16:25 ED Treatment Course - LABORATORY CBC & Chemistry Diagram: 01/22/19 19:00 01/22/19 15:45 Medical Decision Making - Medical Decision Making 01/22/19 16:25 23 yo A2 F @4 weeks presents with severe abdominal pain and cramping with mild vaginal bleeding since taking 2 vaginal insert abortive pills obtained through friend. Concurrent vomiting and diarrhea for 2 days, PO intolerant. Pt has had 2 prior pregnancies, both surgically aborted, and active multisubstance abuse (percocet, marijuana). Diffusely tender but soft abdominal exam. Pelvic exam demonstrated dark blood pooled in vaginal vault obstructing view of cervical os. DDx most likely actively aborting, retained POC; less likely but considering ectopic , ovarian torsion, ovarian cyst, PID, perotinitis. Vaginal bleeding, abdominal pain/cramping - CBC, CMP, test - UA, UCx - IV, NS, pain ctrl, zofran - TVUS - consider OBGYN c/s 01/22/19 16:41 Labs reviewed, WBC high will explore possible causes. f/u UA - CXR, CT A/P 01/22/19 17:[address] A/P during Re-assessed abdomen: now soft, ntnd Patient condition improved, still endorsing vaginal bleeding After discussion with Dr. Cabello and Dr. Buchanan, will wait for UA before deciding whether or not to proceed with CT A/P 01/22/19 18:00 Repeat VS: 93/51, 72HR, 98.3F. Nonlabored breathing. No cyanosis. Bolus 1L NS TVUS demonstrates some endometrial thickening, no signs of IUP or ovarian torsion. Counseled patient regarding importance of taking medications prescribed only by doctors and suggested alternative resources ([facility]). 01/22/19 18:49 2-view CXR demonstrates no signs of pneumoperitoneum repeat CBC UA does not explain level of WBC, will proceed with CT A/P 01/22/19 21:00 Further discussion with patient reveals she received cosmetic injections in her b/l buttock - unlikely the source of the infection. CT A/P demonstrates fluid in colon (?diarrheal illness), nonspecific endometrial thickening, and no obvious noncontrast pathology. After discussion w/ Dr. Bcuhanan, will d/c home Dispo: home with PCP follow up. 01/22/19 22:37 Patient Elopement: Patient left before signing discharge papers. Was found to be febrile to 100.5F but left before given tylenol and Bactrim DS. Vital signs otherwise improved and reassuring. Patient condition improved and reassuring. Dr. Buchanan has left a message on patient call back number in hopes of receiving pharmacy information. We have sent Bactrim DS to [facility] (on file pharmacy). *DC/Admit/Observation/Transfer Diagnosis at time of Disposition: Vomiting affecting - Discharge Dispostion Disposition: HOME Condition at time of disposition: Stable Decision to Admit order: No - Prescriptions Prescriptions: Sulfamethoxazole/Trimethoprim [Bactrim Ds -] 1 tab PO BID #14 tablet - Referrals Referrals: Ezequiel Jean MD [Staff Physician] - Toan Luis MD [Staff Physician] - - Patient Instructions Printed Discharge Instructions: Opioid Addiction, DI for Diarrhea and Traveler' s Diarrhea -- Adult, DI for Vaginal Bleeding During , DI for Vomiting - - Adult Additional Instructions: You were assessed and treated in the Emergency Department. We highly recommend follow up for further work up. Please follow up with your Primary Care Doctor for further evaluation. Please follow up with your [facility] for further evaluation. It is extremely important that you follow up with one of the above doctors for serial monitoring. [facility] at [address] [place] [address] can provide assistance and care with substance/drug use. Please return to the Emergency Department if you experience any of the following : - worsening of your symptoms - vaginal bleeding - severe abdominal pain - chest pain, shortness of breath and/or difficulty breathing - bloody stool, bloody diarrhea, bloody vomitus, and/or continued and severe diarrhea - inability to eat or drink - seizures, fainting, loss of consciousness, change in behavior, and/or change in mentation - any signs or symptoms that concern you - Post Discharge Activity
[2019-01-22] MEDS ORDERED: ACETAMINOPHEN 1000 MG/100 ML VIAL (NON FORMULARY) IVPB ONE (15:31)
--- NOTE | 2019-01-22 15:55 | PDOC ---
*Physical Exam - Vital Signs Last Vital Signs Temp Pulse Resp BP Pulse Ox 97.9 F 68 118 H 104/64 99 01/22/19 14:18 01/22/19 14:18 01/22/19 14:18 01/22/19 14:18 01/22/19 14:18 ED Treatment Course - LABORATORY CBC & Chemistry Diagram: 01/22/19 19:00 01/22/19 15:45 - Medications Given in the ED: ED Medications Discontinued Medications Generic Name Dose Route Start Last Admin Trade Name Irvin PRN Reason Stop Dose Admin Sodium Chloride 1,000 mls @ 1,000 mls/hr 01/22/19 14:19 01/22/19 14:45 Normal Saline - IV 01/22/19 15:18 1,000 mls/hr ASDIR STA Administration Ondansetron HCl 4 mg 01/22/19 14:19 01/22/19 14:45 Zofran Injection IVPUSH 01/22/19 14:20 4 mg ONCE ONE Administration Medical Decision Making - Medical Decision Making 01/22/19 15:52 Patient seen and evaluated with Dr. Garcia (PGY-1) 23 year old female with a PMH of opioid dependence with vaginal bleeding s/p street abortiofacent. LMP was mid December 2015. States she two took vaginal inserts she got from a friend who bought the pills off the street. Last Percocet use was 3-4 days previous. Will plan for TVUS to evaluate for retained POC, basic labs. 01/22/19 18:22 TVUS shows no IUP, endometrial thickening c/w Hb 14 Leukocytosis 20 - ? intrabdominal infection, less likely perforated bowel given patient symptomatically improved, non-tender, soft belly on repeat PE CXR pending for perforated bowel, UA pending, if no identifiable source will consider CTAP; step cueto approach given patient's age and concern for radiation exposure 01/22/19 20:13 UA equivocal Repeat WBC 17 - will obtain CTAP to further evaluate for infectious source Patient reassessed @ bedside, belly remains soft, patient states pain completely resolved, patient on cell phone, joking with friend, ambulatory around unit. Well appearing. Patient signed out to Dr. Buchanan (Attending) @ shift change, CTAP pending. *DC/Admit/Observation/Transfer Diagnosis at time of Disposition: Vomiting affecting - Discharge Dispostion Disposition: HOME Condition at time of disposition: Stable - Prescriptions Prescriptions: Sulfamethoxazole/Trimethoprim [Bactrim Ds -] 1 tab PO BID #14 tablet - Referrals Referrals: Toan Luis MD [Staff Physician] - Ezequiel Jean MD [Staff Physician] - - Patient Instructions Printed Discharge Instructions: Opioid Addiction, DI for Diarrhea and Traveler' s Diarrhea -- Adult, DI for Vaginal Bleeding During , DI for Vomiting - - Adult Additional Instructions: You were assessed and treated in the Emergency Department. We highly recommend follow up for further work up. Please follow up with your Primary Care Doctor for further evaluation. Please follow up with your RECYCLING ATTENDANT for further evaluation. It is extremely important that you follow up with one of the above doctors for serial monitoring. [facility] at [address] [place] [address] can provide assistance and care with substance/drug use. Please return to the Emergency Department if you experience any of the following : - worsening of your symptoms - vaginal bleeding - severe abdominal pain - chest pain, shortness of breath and/or difficulty breathing - bloody stool, bloody diarrhea, bloody vomitus, and/or continued and severe diarrhea - inability to eat or drink - seizures, fainting, loss of consciousness, change in behavior, and/or change in mentation - any signs or symptoms that concern you - Post Discharge Activity
[2019-01-22 16:17] LABS: BASO % 0.1 % (0-2.0); HEMATOCRIT 42.3 % (32.4-45.2); HEMOGLOBIN 14.5 GM/dL (10.7-15.3); LYMPH % 2.9 % (8-40); MCH 34.1 pg (25.7-33.7); MCHC 34.4 g/dl (32.0-36.0); MEAN CELL VOLUME 99.3 fl (80-96); MEAN PLT VOLUME 7.2 fl (7.5-11.1); MONO % 3.3 % (3.8-10.2); NEUT % 93.7 % (42.8-82.8); PLATELET COUNT 309 K/MM3 (134-434); RBC 4.26 M/mm3 (3.60-5.2); RDW 12.5 % (11.6-15.6); WHITE BLOOD COUNT 20.7 K/mm3 (4.0-10.0)
[2019-01-22 16:59] LABS: ALBUMIN 4.5 g/dl (3.4-5.0); BILIRUBIN,TOTAL 0.8 mg/dL (0.2-1); CALCIUM 9.7 mg/dL (8.5-10.1); POTASSIUM 3.3 mmol/L (3.5-5.1); TOT PROT 7.8 g/dl (6.4-8.2)
[2019-01-22] MEDS ORDERED: POTASSIUM CHLORIDE TABS 20 MEQ TABLET.ER (FP) PO ONE ×2 (17:03→18:32)
--- NOTE | 2019-01-22 17:16 | PDOC ---
Attending Attestation - Resident Resident Name: JoseIsrael - ED Attending Attestation I have performed the following: I have examined & evaluated the patient, The case was reviewed & discussed with the resident, I agree w/resident's findings & plan - HPI HPI: 01/22/19 17:18 23 yo A2 F who is 4 weeks presents with 1 day of constant, severe, nonradiating abdominal pain and cramping with mild vaginal bleeding since she took 2 vaginal route pills today at 9am. Pills not taken under medical supervision. Concurrently, the patient has had 2 days of PO intolerance with nbnb vomiting (~25x) and nonbloody diarrhea (5+). Patient fainted 3x today, caught by boyfriend, no seizures, no head strike. Patient has had two previous pregnancies terminated surgically. Surgical hx includes 2 surgical abortions and liposuction. Pt uses percocet 5-10x daily and marijuana 5-10x daily with last use 2 days ago. Endorses chills. Denies headache, changes in hearing/vision, lightheadedness, dizziness, neck pain, chest pain, SOB. (+) sick contact - twin sister - Physicial Exam PE: 01/22/19 17:19 Agree with the resident's HPI and PE as documented in the electronic medical record. NAD, EOMI, PERRL, MMM, nl conjunctiva, anicteric; neck supple. lungs clear, + tachycardic, no murmurs, abdomen soft but diffusely tender, +guarding. no rigidity. Back nontender. No peripheral edema. normal color for ethnicity, WWP. - Medical Decision Making 01/22/19 17:20 hpi as documented Vital Signs Temp Pulse Resp BP Pulse Ox 97.9 F 68 118 H 104/64 99 01/22/19 14:18 01/22/19 14:18 01/22/19 14:18 01/22/19 14:18 01/22/19 14:18 VS with tachycardia, normotensive DDx abdominal pain: Renal colic, biliary colic, metabolic/electrolyte derangements. GERD, PUD, esophageal spasm, pancreatitis, hepatitis, constipation , colitis, gastroenteritis, cholecystitis, UTI, pyelonephritis, medication side effect, hernia, appendicitis, diverticulitis, mesenteric ischemia. msk strain, mesenteric adenitis, psoas abscess. retained products of conception, perf viscus. ED course: labs and lytes with significant leukocytosis of 20K, TVUS to check for retained products CXR to check for perf viscus, concern for early peritoneal findings with FB/ abortafacent CT a/p indicated if stable s/o evening attg Dr Buchanan 01/22/19 17:21
[2019-01-22] MEDS ORDERED: SODIUM CHLORIDE 0.9% 500 ML INFUS.BAG IV ONE (18:04)
[2019-01-22 19:15] LABS: HYALINE CASTS 37 /lpf (0-8); URINE APPEARANCE TURBID; URINE BACTERIA 10.2 /hpf (NEGATIVE); URINE BILIRUBIN 1+ (NEGATIVE); URINE COLOR RED; URINE GLUCOSE (UA) NEGATIVE (NEGATIVE); URINE KETONE 2+ (NEGATIVE); URINE LEUK ESTERASE 1+ (NEGATIVE); URINE NITRITE POSITIVE (NEGATIVE); URINE PROTEIN 2+ (NEGATIVE); URINE RBC 6914 /hpf (0-4); URINE UROBILINOGEN 0.2 mg/dL (0.2-1.0); URINE WBC 22 /hpf (0-5)
[2019-01-22 19:39] LABS: BASO % 0.1 % (0-2.0); HEMATOCRIT 37.4 % (32.4-45.2); HEMOGLOBIN 12.7 GM/dL (10.7-15.3); LYMPH % 3.2 % (8-40); MCH 34.1 pg (25.7-33.7); MCHC 33.9 g/dl (32.0-36.0); MEAN CELL VOLUME 100.4 fl (80-96); MEAN PLT VOLUME 7.2 fl (7.5-11.1); MONO % 1.8 % (3.8-10.2); NEUT % 94.9 % (42.8-82.8); PLATELET COUNT 246 K/MM3 (134-434); RBC 3.73 M/mm3 (3.60-5.2); RDW 12.3 % (11.6-15.6); WHITE BLOOD COUNT 17.1 K/mm3 (4.0-10.0)
[2019-01-22 20:07] VITALS: BP 103/54; PULSE 66; TEMP 99.1
[2019-01-22 21:16] LABS: PLATELET ESTIMATE ADEQUATE
[2019-01-22 21:21] LABS: PLATELET ESTIMATE ADEQUATE
[2019-01-22] MEDS ORDERED: SULFAMETHOXAZOLE/TRIMETHOPRIM 800MG/160MG D.S. TABLET PO ONE (22:22)
[2019-01-22] MEDS ORDERED: ACETAMINOPHEN 325 MG TABLET (FP) PO ONE (22:23)
== END 2019-01-22 22:15 | disposition home or self-care (01) ==
LOC: JER 14:15
PROC: 3E033NZ Introduction of Analgesics, Hypnotics, Sedatives into Peripheral Vein, Percutaneous Approach (ICD-10-PCS; principal; 2019-01-22)
PROC: 3E033GC Introduction of Other Therapeutic Substance into Peripheral Vein, Percutaneous Approach (ICD-10-PCS; 2019-01-22)
PROC: 3E0337Z Introduction of Electrolytic and Water Balance Substance into Peripheral Vein, Percutaneous Approach (ICD-10-PCS; 2019-01-22)
DX: F17.210 Nicotine dependence, cigarettes, uncomplicated (principal); O26.891 Other specified pregnancy related conditions, first trimester; O21.9 Vomiting of pregnancy, unspecified; Z3A.01 Less than 8 weeks gestation of pregnancy
CPT/HCPCS: 36415; 71046-TC-FY; 74176-TC; 76830-TC; 80053; 81003; 83690; 84702; 85025; 96361; 96374; 96375; 99283-25; J0131; J7030

== ENCOUNTER 2019-02-27 23:06 | Emergency (ER) | payer OTHER ==
[2019-02-27 23:13] VITALS: BP 102/68; PULSE 97; TEMP 98.8; BMI 23.2
[2019-02-27] MEDS ORDERED: DIPHTH,PERTUSS(ACELL),TET VAC 0.5 ML VIAL IM ONE (23:21)
--- NOTE | 2019-02-27 23:23 | PDOC ---
History of Present Illness - General Chief Complaint: Bite Stated Complaint: RODENT BITE Time Seen by Provider: 02/27/19 23:17 History Source: Patient - History of Present Illness Initial Comments: 02/27/19 23:18 23 year old female report that she felt a bite to the left thumb prior to arrival. patient believes she was bit by a mice. patient reports that she is here for a tetanus vaccines. no redness or swelling at the bite site noted. Past History - Past Medical History Allergies/Adverse Reactions: Allergies Allergy/AdvReac Type Severity Reaction Status Date / Time No Known Allergies Allergy Verified 02/27/19 23:11 Home Medications: Ambulatory Orders Sulfamethoxazole/Trimethoprim [Bactrim Ds -] 1 tab PO BID #14 tablet 01/22/19 Anemia: No Asthma: No Cancer: No Cardiac Disorders: No CVA: No COPD: No CHF: No DVT: No Dementia: No Diabetes: No GI Disorders: No Disorders: No HTN: No Hypercholesterolemia: No Kidney Stones: No Liver Disease: No Seizures: No Thyroid Disease: No - Surgical History Abdominal Surgery: Yes (liposuction in 02/2016) Appendectomy: No Cardiac Surgery: No Cholecystectomy: No Lung Surgery: No Neurologic Surgery: No Orthopedic Surgery: No - Reproductive History PID: No Spontaneous : 1 - Immunization History Immunization Up to Date: No - Suicide/Smoking/Psychosocial Hx Smoking History: Never smoked Have you smoked in the past 12 months: Yes Number of Cigarettes Smoked Daily: 20 If you are a former smoker, when did you quit?: 2014 Cigars Per Day: 0 'Breaking Loose' booklet given: 05/16/18 Hx Alcohol Use: No Drug/Substance Use Hx: Yes Substance Use Type: Marijuana, Opiates Hx Substance Use Treatment: Yes (C 05/16/18 to 05/20/18) Review of Systems - Review of Systems Able to Perform ROS?: Yes Is the patient limited Indonesian proficient: No Integumentary: Yes: Other (bite) *Physical Exam - Vital Signs Last Vital Signs Temp Pulse Resp BP Pulse Ox 98.8 F 97 H 18 102/68 98 02/27/19 23:11 02/27/19 23:11 02/27/19 23:11 02/27/19 23:11 02/27/19 23:11 - Physical Exam General Appearance: Yes: Appropriately Dressed Extremity: positive: Other (no puncture wound note dto left thumb. no erythema) Integumentary: positive: Normal Color, Dry, Warm Neurologic: positive: Fully Oriented, Alert Progress Note - Progress Note Progress Note: A: bite by a rodent P: tetanus wound infection possibility discussed with patient . patient to follow up with pcp for a wound check *DC/Admit/Observation/Transfer Diagnosis at time of Disposition: Bitten by other rodent, initial encounter - Discharge Dispostion Disposition: HOME - Referrals - Patient Instructions Printed Discharge Instructions: DI for Insect Bites and Stings Additional Instructions: follow up with your doctor in 2 days for a wound check return to the ER for any worsening symptoms. - Post Discharge Activity
== END 2019-02-27 23:53 | disposition home or self-care (01) ==
LOC: JER 23:06
PROC: 3E0234Z Introduction of Serum, Toxoid and Vaccine into Muscle, Percutaneous Approach (ICD-10-PCS; principal; 2019-02-27)
DX: S60.372A Other superficial bite of left thumb, initial encounter (principal); W53.01XA Bitten by mouse, initial encounter; Y93.89 Activity, other specified; Y92.89 Other specified places as the place of occurrence of the external cause; Y99.8 Other external cause status
CPT/HCPCS: 90471; 99281-25

== ENCOUNTER 2019-03-23 10:30 | Inpatient (IN) | payer OTHER ==
[2019-03-23 11:56] VITALS: BMI 24.0
--- NOTE | 2019-03-23 12:36 | HP ---
COWS - Scale Resting Pulse: 0= [place] 80 or Below Sweatin=Flushed/Facial Moisture Restless Observation: 3= Extraneous Movement Pupil Size: 0= Normal to Room Light Bone or Joint Aches: 2= Severe Diffuse Aches Runny Nose/ Eye Tearin= None GI Upset > 30mins: 3= Vomiting/Diarrhea (vomiting yellow, diarrhea) Tremor Observation: 0= None Yawning Observation: 0= None Anxiety or Irritability: 2=Irritable/Anxious Goose Flesh Skin: 0=Smooth Skin COWS Score: 12 CIWA Score - Admission Criteria OASAS Guidelines: Admission for Medically Managed Detox: Requires at least one of the followin. CIWA greater than 12 2. Seizures within the past 24 hours 3. Delirium tremens within the past 24 hours 4. Hallucinations within the past 24 hours 5. Acute intervention needed for co occurring medical disorder 6. Acute intervention needed for co occurring psychiatric disorder 7. Severe withdrawal that cannot be handled at a lower level of care (continued vomiting, continued diarrhea, abnormal vital signs) requiring intravenous medication and/or fluids 8. Admission ROS [facility] Chief Complaint: detox for percocets, MJ, cocaine Allergies/Adverse Reactions: Allergies Allergy/AdvReac Type Severity Reaction Status Date / Time No Known Allergies Allergy Verified 03/23/19 11:49 History of Present Illness: 23F w/ no significant pmh presenting for detox-rehab for percocets. Takes percocet 10mg [id number] daily. Latest usage at 0400. First usage at 12y/o. Denies blackouts, ODs. Does not have a Narcan kit. Smokes 20 MJ blunts daily. Denies heroin, IVDU, cocaine, cigarettes. Last detox was 2-3mo prior, relapsed after 2weeks. Longest duration of substance-free is 2weeks. Lives with grandmother. 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 LMP was ~1week prior, normal. Exam Limitations: No Limitations - Ebola screening Have you traveled outside of the country in the last 21 days: No Have you had contact with anyone from an Ebola affected area: No Do you have a fever: No - Review of Systems Constitutional: Chills EENT: denies: Double Vision, Recent change in vision Respiratory: reports: Shortness of Breath. denies: Cough Cardiac: denies: Chest Pain, Lightheadedness, Palpitations, Chest Tightness GI: reports: Diarrhea, Nausea, Poor Appetite, Vomiting. denies: Abdominal cramping : denies: Dysuria, Frequency Musculoskeletal: reports: Back Pain (midback pain, calves b/l) Psychiatric: reports: Anxious Patient History - Patient Medical History Hx Anemia: No Hx Asthma: No Hx Chronic Obstructive Pulmonary Disease (COPD): No Hx Cancer: No Hx Cardiac Disorders: No Hx Congestive Heart Failure: No Hx Hypertension: No Hx Hypercholesterolemia: No Hx Pacemaker: No HX Cerebrovascular Accident: No Hx Seizures: No Hx Dementia: No Hx Diabetes: No Hx Gastrointestinal Disorders: No Hx Liver Disease: No Hx Genitourinary Disorders: No Hx Sexually Transmitted Disorders: No Hx Renal Disease (ESRD): No Hx Thyroid Disease: No Hx Human Immunodeficiency Virus (HIV): No (negative 2018 ) Hx Hepatitis C: No Hx Depression: Yes (no med) Hx Suicide Attempt: No Hx Bipolar Disorder: No Hx Schizophrenia: No - Patient Surgical History Past Surgical History: No Hx Neurologic Surgery: No Hx Cataract Extraction: No Hx Cardiac Surgery: No Hx Lung Surgery: No Hx Breast Surgery: No Hx Breast Biopsy: No Hx Abdominal Surgery: Yes (liposuction in 02/2016) Hx Appendectomy: No Hx Cholecystectomy: No Hx Genitourinary Surgery: No Hx Section: No Hx Orthopedic Surgery: No Other Surgical History: LIPOSUCTION IN 02/16. Anesthesia Reaction: No - PPD History Date: 11/20/17 Results: 0mm - Reproductive History Last Menstrual Period: 12/13/18 - Smoking Cessation Smoking history: Former smoker Have you smoked in the past 12 months: No Aproximately how many cigarettes per day: 20 (stopped smoking 7ys prior) If you are a former smoker, when did you quit?: 2013 Cigars Per Day: 0 Hx Chewing Tobacco Use: No Initiated information on smoking cessation: No - Substances abused Other Other (specify): percocet Substance route: Oral Frequency: Daily Amount used: 10mg/325mg tab ( 15-20) Age of first use: 13 Date of last use: 03/23/19 Marijuana/Hashish Substance route: Smoking Frequency: Daily Amount used: $300 Age of first use: 12 Date of last use: 03/22/19 Admission Physical Exam BHS - Vital Signs Vital Signs: Vital Signs - 24 hr 03/23/19 11:02 Temperature 98 F Pulse Rate 76 Respiratory 14 Rate Blood Pressure 102/74 - Physical General Appearance: Yes: Nourished, Anxious HEENTM: No: Pale Conjunctivae R, Pale Conjunctivae L, Scleral Ictenus R, Scleral Ictenus L Respiratory: Yes: Lungs Clear, Normal Breath Sounds, No Respiratory Distress, No Accessory Muscle Use. No: Rhonchi, Wheezing Neck: Yes: Supple Cardiology: Yes: Regular Rate, S1, S2. No: Tachycardia, Irregularly Irregular Abdominal: Yes: Soft. No: Distended, Tenderness Extremities: Yes: Normal Range of Motion. No: Calf Tenderness 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: Alert Integumentary: Yes: Dry, Warm Breathalyzer - Breathalyzer Breathalyzer: 0 Urine Drug Screen - Test Device Lot number: [id number] Expiration date: 12/01/20 - Control Is test valid?: Yes - Results Drug screen NEGATIVE: No Urine drug screen results: THC-Marijuana, AMP-Amphetamines, MOP-Opiates, OXY- Oxycodone Inpatient Rehab Admission - Rehab Decision to Admit Inpatient rehab admission?: No
--- NOTE | 2019-03-23 12:50 | PN ---
"Teaching Attending Note Name of Resident: Nash Toro ATTENDING PHYSICIAN STATEMENT I saw and evaluated the patient. I reviewed the resident's note and discussed the case with the resident. I agree with the resident's findings and plan as documented. SUBJECTIVE: 23 y.o. female pt reports 25 percocet 10 mg daily x 2 years , first age of use 12 detox x 7 , no rehab. current symptoms as above LMP 2 days ago most recently January 2019 states had . Denies OD . Relapsed 2 weeks after d/c from this facility , latest use this morning. 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 Planning to move to [place] after d/c . cannabis : 20 blunts/day denies other illicits denies tobacco use OBJECTIVE: wnwd , anxious , tearful, restless , mild UE tremors Vital Signs - 24 hr 03/23/19 11:02 Temperature 98 F Pulse Rate 76 Respiratory 14 Rate Blood Pressure 102/74 Search Terms: tree erickson, 1995 Search Date: 03/23/2019 12:48:19 PM This report was requested by: Rita Birch | Reference #: [id number] There are no results for the search terms that you entered. ASSESSMENT AND PLAN: Opioid dependence - detox"
[2019-03-23] MEDS ORDERED: MAGNESIUM HYDROX 2400MG/30ML ORAL SUSPENSION 30 ML CUP PO PRN (13:00)
[2019-03-23] MEDS ORDERED: MENTHOL/PHENOL 1 EACH UD MM PRN (13:00)
[2019-03-23] MEDS ORDERED: IBUPROFEN 400 MG TABLET (FP) PO PRN ×2 (13:00)
[2019-03-23] MEDS ORDERED: MAGNESIUM CITRATE 300 ML BOTTLE PO PRN (13:00)
[2019-03-23] MEDS ORDERED: BISMUTH SUBSALICYLATE 524 MG/30 ML UD PO PRN (13:00)
[2019-03-23] MEDS ORDERED: cloNIDine HCL 0.1 MG TABLET PO PRN (13:00)
[2019-03-23] MEDS ORDERED: ONDANSETRON *ODT* 4 MG TABLET SL PRN (13:00)
[2019-03-23] MEDS ORDERED: MAG HYDROX/AL HYDROX/SIMETH 30 ML UNIT-DOSE CUP PO PRN (13:00)
[2019-03-23] MEDS ORDERED: METHADONE HCL 10 MG TABLET (FOR DETOX USE ONLY) PO ONE (14:00)
[2019-03-23 16:03] LABS: ALBUMIN 4.2 g/dl (3.4-5.0); BILIRUBIN,TOTAL 0.5 mg/dL (0.2-1); BLOOD UREA NITROGEN 11.1 mg/dL (7-18); CREATININE 0.7 mg/dL (0.55-1.3); POTASSIUM 3.9 mmol/L (3.5-5.1); TOT PROT 7.1 g/dl (6.4-8.2)
[2019-03-23 16:38] LABS: HEMATOCRIT 41.1 % (32.4-45.2); HEMOGLOBIN 13.9 GM/dL (10.7-15.3); MCH 34.4 pg (25.7-33.7); MCHC 33.7 g/dl (32.0-36.0); MEAN CELL VOLUME 102.1 fl (80-96); MEAN PLT VOLUME 7.4 fl (7.5-11.1); PLATELET COUNT 259 K/MM3 (134-434); RBC 4.03 M/mm3 (3.60-5.2); RDW 12.8 % (11.6-15.6); WHITE BLOOD COUNT 5.5 K/mm3 (4.0-10.0)
[2019-03-23] MEDS ORDERED: TRIMETHOBENZAMIDE HCL 200MG/2ML INJ IM PRN (22:16)
[2019-03-23] MEDS: THIAMINE HCL 100 MG TABLET (FP) PO SCH (22:47)
[2019-03-23] MEDS: hydrOXYzine PAMOATE 25 MG CAPSULE (FP) PO PRN (23:34)
[2019-03-24] MEDS ORDERED: ONDANSETRON *ODT* 4 MG TABLET SL PRN (03:13)
[2019-03-24] MEDS ORDERED: PROCHLORPERAZINE MALEATE 5 MG TABLET PO PRN (03:14)
[2019-03-24] MEDS ORDERED: METHADONE HCL 10 MG TABLET (FOR DETOX USE ONLY) ONE (09:25)
[2019-03-24] MEDS ORDERED: METHADONE HCL 5 MG TABLET (FOR DETOX USE ONLY) ONE (09:25)
[2019-03-24] MEDS: PRENATAL VITAMINS W/ FOLIC ACID TABLET (FP) PO SCH (09:41)
[2019-03-24] MEDS ORDERED: METHADONE (DETOX) 20 MG, METHADONE (DETOX) 5 MG PO ONE (10:00)
[2019-03-24] MEDS ORDERED: METHADONE DETOX 10 MG/1 ML [20ML VIAL] IM ONE (12:15)
--- NOTE | 2019-03-24 17:19 | PN ---
BHS COWS - Scale Resting Pulse: 1= [place] 81-100 Sweatin= Chills/Flushing Restless Observation: 1= Difficult to Sit Still Pupil Size: 0= Normal to Room Light Bone or Joint Aches: 2= Severe Diffuse Aches Runny Nose/ Eye Tearin= None GI Upset > 30mins: 2= Nausea/Diarrhea Tremor Observation of Outstretched Hands: 0= None Yawning Observation: 1= 1-2x During Session Anxiety or Irritability: 2=Irritable/Anxious Goose Flesh Skin: 0=Smooth Skin COWS Score: 10 BHS Progress Note (SOAP) Subjective: Nausea, Body Aches, Fatigue, Anxious. Patient reports that Nausea / Vomiting are beginning to subside in comparison to how severe they were yesterday and last night. Objective: PATIENT A & O X 3, OBSERVED AMBULATING ON DETOX UNIT UNASSISTED. IN NO ACUTE DISTRESS. 03/24/19 17:22 Vital Signs Temperature 97.5 F L 03/24/19 09:50 Pulse Rate 83 03/24/19 09:50 Respiratory Rate 18 03/24/19 09:50 Blood Pressure 100/65 03/24/19 09:50 O2 Sat by Pulse Oximetry (%) Laboratory Tests 03/23/19 03/23/19 12:20 12:20 WBC 5.5 RBC 4.03 Hgb 13.9 Hct 41.1 MCV 102.1 H MCH 34.4 H MCHC 33.7 RDW 12.8 Plt Count 259 MPV 7.4 L Sodium 141 Potassium 3.9 Chloride 108 H Carbon Dioxide 26 Anion Gap 7 L BUN 11.1 Creatinine 0.7 Est GFR (CKD-EPI)AfAm 141.54 Est GFR (CKD-EPI)NonAf 122.12 Random Glucose 92 Calcium 9.0 Total Bilirubin 0.5 AST 10 L ALT 12 L Alkaline Phosphatase 53 Total Protein 7.1 Albumin 4.2 LABS NOTED. Assessment: 03/24/19 17:23 WITHDRAWAL SYMPTOMS. Plan: CONTINUE DETOX. PRN TIGAN IM FOR NAUSEA. / VOMITING. DUE TO LINGER IN NAUSEA, THIS AM'S DOSE OF DETOX METHADONE ADMINISTERED IN IM FORM.
[2019-03-24] MEDS: METHOCARBAMOL 500 MG TABLET PO PRN (22:30)
[2019-03-24] MEDS: hydrOXYzine PAMOATE 25 MG CAPSULE (FP) PO PRN (22:30)
[2019-03-24] MEDS: THIAMINE HCL 100 MG TABLET (FP) PO SCH (22:30)
[2019-03-24] MEDS: MELATONIN 5 MG TABLETS PO PRN (22:31)
[2019-03-25] MEDS ORDERED: METHADONE HCL 10 MG TABLET (FOR DETOX USE ONLY) PO ONE (10:00)
[2019-03-25] MEDS: PRENATAL VITAMINS W/ FOLIC ACID TABLET (FP) PO SCH (10:20)
--- NOTE | 2019-03-25 15:12 | PN ---
BHS COWS - Scale Resting Pulse: 2= [place] 101-120 Sweatin= No chills or Flushing Restless Observation: 0= Sits Still Pupil Size: 1= Pupils >than Normal Bone or Joint Aches: 1= Mild Discomfort Runny Nose/ Eye Tearin= Nasal Congestion GI Upset > 30mins: 1= Stomach Cramp Tremor Observation of Outstretched Hands: 1= Tremor [place], Not Seen Yawning Observation: 1= 1-2x During Session Anxiety or Irritability: 1=Feels Anxious/Irritable Goose Flesh Skin: 0=Smooth Skin COWS Score: 9 BHS Progress Note (SOAP) Subjective: doing well with methadone detox regimen trouble to maintenance in sleep feeling tired prefers to stay in bed today discuss 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4 fl (7.5-11.1) L 03/23/19 12:20 Sodium 141 mmol/L (136-145) 03/23/19 12:20 Potassium 3.9 mmol/L (3.5-5.1) 03/23/19 12:20 Chloride 108 mmol/L (98-107) H 03/23/19 12:20 Carbon Dioxide 26 mmol/L (21-32) 03/23/19 12:20 Anion Gap 7 MMOL/L (8-16) L 03/23/19 12:20 BUN 11.1 mg/dL (7-18) 03/23/19 12:20 Creatinine 0.7 mg/dL (0.55-1.3) 03/23/19 12:20 Est GFR (CKD-EPI)AfAm 141.54 03/23/19 12:20 Est GFR (CKD-EPI)NonAf 122.12 03/23/19 12:20 Random Glucose 92 mg/dL (74-106) 03/23/19 12:20 Calcium 9.0 mg/dL (8.5-10.1) 03/23/19 12:20 Total Bilirubin 0.5 mg/dL (0.2-1) 03/23/19 12:20 AST 10 U/L (15-37) L 03/23/19 12:20 ALT 12 U/L (13-61) L 03/23/19 12:20 Alkaline Phosphatase 53 U/L (45-117) 03/23/19 12:20 Total Protein 7.1 g/dl (6.4-8.2) 03/23/19 12:20 Albumin 4.2 g/dl (3.4-5.0) 03/23/19 12:20 Acetaminophen 28.1 03/25/19 07:40 lab noted anxious Assessment: 03/25/19 15:13 opiate withdrawal sx Plan: continue methadone detox regimen
[2019-03-25] MEDS: MELATONIN 5 MG TABLETS PO PRN (22:26)
[2019-03-25] MEDS: METHOCARBAMOL 500 MG TABLET PO PRN (22:26)
[2019-03-25] MEDS: THIAMINE HCL 100 MG TABLET (FP) PO SCH (22:38)
[2019-03-26] MEDS ORDERED: METHADONE HCL 5 MG TABLET (FOR DETOX USE ONLY) ONE (09:03)
[2019-03-26] MEDS ORDERED: METHADONE HCL 10 MG TABLET (FOR DETOX USE ONLY) ONE (09:03)
[2019-03-26] MEDS ORDERED: METHADONE (DETOX) 10 MG, METHADONE (DETOX) 5 MG PO ONE (10:00)
[2019-03-26] MEDS: PRENATAL VITAMINS W/ FOLIC ACID TABLET (FP) PO SCH (10:18)
--- NOTE | 2019-03-26 10:32 | PN ---
BHS COWS - Scale Resting Pulse: 1= [place] 81-100 Sweatin= Chills/Flushing Restless Observation: 0= Sits Still Pupil Size: 1= Pupils >than Normal Bone or Joint Aches: 1= Mild Discomfort Runny Nose/ Eye Tearin= None GI Upset > 30mins: 1= Stomach Cramp Tremor Observation of Outstretched Hands: 1= Tremor [place], Not Seen Yawning Observation: 0= None Anxiety or Irritability: 1=Feels Anxious/Irritable Goose Flesh Skin: 0=Smooth Skin COWS Score: 7 BHS Progress Note (SOAP) Subjective: doing well with methadone detox regimen resting on bed comfortably hesitate to discuss aftercare with staff strong recommend medication assisted treatment program Objective: 03/26/19 10:30 Vital Signs Temperature 98.4 F 03/26/19 09:37 Pulse Rate 98 H 03/26/19 09:37 Respiratory Rate 20 03/26/19 09:37 Blood Pressure 119/83 03/26/19 09:37 O2 Sat by Pulse Oximetry (%) Laboratory Last Values WBC 5.5 K/mm3 (4.0-10.0) 03/23/19 12:20 RBC 4.03 M/mm3 (3.60-5.2) 03/23/19 12:20 Hgb 13.9 GM/dL (10.7-15.3) 03/23/19 12:20 Hct 41.1 % (32.4-45.2) 03/23/19 12:20 MCV 102.1 fl (80-96) H 03/23/19 12:20 MCH 34.4 pg (25.7-33.7) H 03/23/19 12:20 MCHC 33.7 g/dl (32.0-36.0) 03/23/19 12:20 RDW 12.8 % (11.6-15.6) 03/23/19 12:20 Plt Count 259 K/MM3 (134-434) 03/23/19 12:20 MPV 7.4 fl (7.5-11.1) L 03/23/19 12:20 Sodium 141 mmol/L (136-145) 03/23/19 12:20 Potassium 3.9 mmol/L (3.5-5.1) 03/23/19 12:20 Chloride 108 mmol/L (98-107) H 03/23/19 12:20 Carbon Dioxide 26 mmol/L (21-32) 03/23/19 12:20 Anion Gap 7 MMOL/L (8-16) L 03/23/19 12:20 BUN 11.1 mg/dL (7-18) 03/23/19 12:20 Creatinine 0.7 mg/dL (0.55-1.3) 03/23/19 12:20 Est GFR (CKD-EPI)AfAm 141.54 03/23/19 12:20 Est GFR (CKD-EPI)NonAf 122.12 03/23/19 12:20 Random Glucose 92 mg/dL (74-106) 03/23/19 12:20 Calcium 9.0 mg/dL (8.5-10.1) 03/23/19 12:20 Total Bilirubin 0.5 mg/dL (0.2-1) 03/23/19 12:20 AST 10 U/L (15-37) L 03/23/19 12:20 ALT 12 U/L (13-61) L 03/23/19 12:20 Alkaline Phosphatase 53 U/L (45-117) 03/23/19 12:20 Total Protein 7.1 g/dl (6.4-8.2) 03/23/19 12:20 Albumin 4.2 g/dl (3.4-5.0) 03/23/19 12:20 POC Urine HCG, Qual Negative 03/23/19 12:19 Acetaminophen 28.1 03/25/19 07:40 lab noted anxious about halfway residential facility for opiate misuse Assessment: 03/26/19 10:31 opiate withdrawal sx Plan: continue methadone detox regimen
[2019-03-26] MEDS: METHOCARBAMOL 500 MG TABLET PO PRN ×2 (12:19→22:05)
[2019-03-26] MEDS: MELATONIN 5 MG TABLETS PO PRN (22:05)
[2019-03-26] MEDS: THIAMINE HCL 100 MG TABLET (FP) PO SCH (22:05)
[2019-03-27] MEDS: METHOCARBAMOL 500 MG TABLET PO PRN ×2 (05:51→22:16)
--- NOTE | 2019-03-27 09:39 | PN ---
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 Objective: 03/27/19 09:41 Vital Signs Temperature 98.1 F 03/27/19 09:22 Pulse Rate 98 H 03/27/19 09:22 Respiratory Rate 18 03/27/19 09:22 Blood Pressure 130/79 03/27/19 09:22 O2 Sat by Pulse Oximetry (%) Laboratory Last Values WBC 5.5 K/mm3 (4.0-10.0) 03/23/19 12:20 RBC 4.03 M/mm3 (3.60-5.2) 03/23/19 12:20 Hgb 13.9 GM/dL (10.7-15.3) 03/23/19 12:20 Hct 41.1 % (32.4-45.2) 03/23/19 12:20 MCV 102.1 fl (80-96) H 03/23/19 12:20 MCH 34.4 pg (25.7-33.7) H 03/23/19 12:20 MCHC 33.7 g/dl (32.0-36.0) 03/23/19 12:20 RDW 12.8 % (11.6-15.6) 03/23/19 12:20 Plt Count 259 K/MM3 (134-434) 03/23/19 12:20 MPV 7.4 fl (7.5-11.1) L 03/23/19 12:20 Sodium 141 mmol/L (136-145) 03/23/19 12:20 Potassium 3.9 mmol/L (3.5-5.1) 03/23/19 12:20 Chloride 108 mmol/L (98-107) H 03/23/19 12:20 Carbon Dioxide 26 mmol/L (21-32) 03/23/19 12:20 Anion Gap 7 MMOL/L (8-16) L 03/23/19 12:20 BUN 11.1 mg/dL (7-18) 03/23/19 12:20 Creatinine 0.7 mg/dL (0.55-1.3) 03/23/19 12:20 Est GFR (CKD-EPI)AfAm 141.54 03/23/19 12:20 Est GFR (CKD-EPI)NonAf 122.12 03/23/19 12:20 Random Glucose 92 mg/dL (74-106) 03/23/19 12:20 Calcium 9.0 mg/dL (8.5-10.1) 03/23/19 12:20 Total Bilirubin 0.5 mg/dL (0.2-1) 03/23/19 12:20 AST 10 U/L (15-37) L 03/23/19 12:20 ALT 12 U/L (13-61) L 03/23/19 12:20 Alkaline Phosphatase 53 U/L (45-117) 03/23/19 12:20 Total Protein 7.1 g/dl (6.4-8.2) 03/23/19 12:20 Albumin 4.2 g/dl (3.4-5.0) 03/23/19 12:20 POC Urine HCG, Qual Negative 03/23/19 12:19 Acetaminophen 28.1 03/25/19 07:40 lab noted Assessment: 03/27/19 09:42 opiate withdrawal sx Plan: continue methadone detox regimen
[2019-03-27] MEDS ORDERED: METHADONE HCL 10 MG TABLET (FOR DETOX USE ONLY) PO ONE (10:00)
[2019-03-27] MEDS: PRENATAL VITAMINS W/ FOLIC ACID TABLET (FP) PO SCH (10:13)
[2019-03-27] MEDS ORDERED: MELATONIN 5 MG TABLETS PO PRN (15:29)
[2019-03-27] MEDS: hydrOXYzine PAMOATE 25 MG CAPSULE (FP) PO PRN (22:16)
[2019-03-27] MEDS: THIAMINE HCL 100 MG TABLET (FP) PO SCH (22:17)
[2019-03-28] MEDS ORDERED: METHADONE HCL 5 MG TABLET (FOR DETOX USE ONLY) PO ONE (06:00)
[2019-03-28 06:50] VITALS: BP 104/74
[2019-03-28 09:21] VITALS: PULSE 81; TEMP 96.6
--- NOTE | 2019-03-28 15:52 | DS ---
[facility] Detox Discharge Summary Admission Date: 03/23/19 Discharge Date: 03/28/19 - History Present History: Opioid Dependence Additional Comments: did well with methadone detox regimen no complication throughout the detox regimen patient is alert oriented x 3 respiratory clear lung bilaterally on auscultation extremities full range of motion - Physical Exam Results Vital Signs: Vital Signs Temperature 96.6 F L 03/28/19 09:19 Pulse Rate 81 03/28/19 09:19 Respiratory Rate 16 03/28/19 09:19 Blood Pressure 104/74 03/28/19 09:19 O2 Sat by Pulse Oximetry (%) Pertinent Admission Physical Exam Findings: opiate withdrawal sx Laboratory Last Values WBC 5.5 K/mm3 (4.0-10.0) 03/23/19 12:20 RBC 4.03 M/mm3 (3.60-5.2) 03/23/19 12:20 Hgb 13.9 GM/dL (10.7-15.3) 03/23/19 12:20 Hct 41.1 % (32.4-45.2) 03/23/19 12:20 MCV 102.1 fl (80-96) H 03/23/19 12:20 MCH 34.4 pg (25.7-33.7) H 03/23/19 12:20 MCHC 33.7 g/dl (32.0-36.0) 03/23/19 12:20 RDW 12.8 % (11.6-15.6) 03/23/19 12:20 Plt Count 259 K/MM3 (134-434) 03/23/19 12:20 MPV 7.4 fl (7.5-11.1) L 03/23/19 12:20 Sodium 141 mmol/L (136-145) 03/23/19 12:20 Potassium 3.9 mmol/L (3.5-5.1) 03/23/19 12:20 Chloride 108 mmol/L (98-107) H 03/23/19 12:20 Carbon Dioxide 26 mmol/L (21-32) 03/23/19 12:20 Anion Gap 7 MMOL/L (8-16) L 03/23/19 12:20 BUN 11.1 mg/dL (7-18) 03/23/19 12:20 Creatinine 0.7 mg/dL (0.55-1.3) 03/23/19 12:20 Est GFR (CKD-EPI)AfAm 141.54 03/23/19 12:20 Est GFR (CKD-EPI)NonAf 122.12 03/23/19 12:20 Random Glucose 92 mg/dL (74-106) 03/23/19 12:20 Calcium 9.0 mg/dL (8.5-10.1) 03/23/19 12:20 Total Bilirubin 0.5 mg/dL (0.2-1) 03/23/19 12:20 AST 10 U/L (15-37) L 03/23/19 12:20 ALT 12 U/L (13-61) L 03/23/19 12:20 Alkaline Phosphatase 53 U/L (45-117) 03/23/19 12:20 Total Protein 7.1 g/dl (6.4-8.2) 03/23/19 12:20 Albumin 4.2 g/dl (3.4-5.0) 03/23/19 12:20 POC Urine HCG, Qual Negative 03/23/19 12:19 Acetaminophen 28.1 03/25/19 07:40 lab noted - Treatment Hospital Course: Detox Protocol Followed, Detoxed Safely, Responded well, Discharged Condition Good, Rehab Referral Accepted Patient has Accepted a [facility] Referral to: [facility] - Medication Discharge Medications: Ambulatory Orders Naloxone HCl [Narcan] 4 mg NS ASDIR PRN #1 spray 03/25/19 - Diagnosis (1) Opioid dependence with withdrawal Status: Acute (2) Asthma Status: Chronic Qualifiers: Asthma severity: mild Asthma persistence: intermittent Asthma complication type: with status asthmaticus Qualified Code(s): J45.22 - Mild intermittent asthma with status asthmaticus (3) Nicotine dependence Status: Acute Qualifiers: Nicotine product type: cigarettes Substance use status: in withdrawal Qualified Code(s): F17.213 - Nicotine dependence, cigarettes, with withdrawal - AMA Did Patient Leave Against Medical Advice: No COWS (PN) - Opiate Withdrawal Resting Pulse: 1= [place] 81-100 Sweatin= No chills or Flushing Restless Observation: 0= Sits Still Pupil Size: 0= Normal to Room Light Bone or Joint Aches: 0= None Runny Nose/ Eye Tearin= None GI Upset > 30mins: 1= Stomach Cramp Tremor Observation of Outstretched Hands: 0= None Yawning Observation: 0= None Anxiety or Irritability: 1=Feels Anxious/Irritable Goose Flesh Skin: 0=Smooth Skin COWS Score: 3
== END 2019-03-28 09:30 | disposition home or self-care (01) | DRG 773 ==
LOC: YASAS 10:30 → Y3N 13:26
PROVIDERS: ADMIT Surgery; ATTEND Surgery
PROC: HZ2ZZZZ Detoxification Services for Substance Abuse Treatment (ICD-10-PCS; principal; 2019-03-23)
DX: F11.23 Opioid dependence with withdrawal (principal); F17.213 Nicotine dependence, cigarettes, with withdrawal; F41.9 Anxiety disorder, unspecified; J45.22 Mild intermittent asthma with status asthmaticus; R00.0 Tachycardia, unspecified
CPT/HCPCS: 36415; 80053; 80307; 81025; 85027; J0735; Q0162